=== PATIENT | female | born 1985 | race Caucasian/White ===

== ENCOUNTER 2017-06-09 22:31 | Emergency (ER) | payer SELFPAY ==
[2017-06-09 22:50] VITALS: BP 91/79
[2017-06-09] MEDS ORDERED: Sodium Chloride 0.9% 1,000 ML IV ONE (23:40)
[2017-06-09] MEDS ORDERED: HYDROmorphone 0.5 MG/0.5 ML Syringe IVPUSH ONE (23:40)
[2017-06-09] MEDS ORDERED: Promethazine 25 MG in Sodium Chloride 0.9% 50 ML IV ONE (23:41)
[2017-06-09] MEDS ORDERED: Ketorolac 30 MG/ML SDV IVPUSH SCH (23:45)
--- NOTE | 2017-06-09 23:46 | EDM.PDOC ---
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 She states came on very abruptly and radiated down towards the rectum and perineum. She has a history of endometriosis but she states since endometrioma was resected 3 months ago her periods of been much more tolerable and only minimally painful.. Ended 3 days ago and lasted 7 days. She felt was relatively uneventful. She is scheduled for a total abdominal hysterectomy and BSO the next month. She went to take a shower tonight but then developed vertigo symptoms and started having abrupt onset of nausea and vomiting with associated headache. She states she gets vertigo quite often and uses Phenergan tablet form about every other week for vertigo symptoms. She states her bowel function is normal. She did not appreciate any blood in her urine. She did have a feeling of need to go but was unable to pass her bowels or urine when the pain came on. This is suggestive of a possible right renal stone. She believes the nausea and vomiting is more related to the sudden onset of recurrence of vertigo. Hour the abdominal pain is quite intense and has a very strong colicky component. It can go from a 1 to a 9 in abruptly. Onset: Today Onset Date: 06/09/17 Onset Time: 09:00 Duration: Hour(s):, Getting Worse Location: Reports: Abdomen (Lower abdomen more to the right than to the left.) Quality: Reports: Ache, Pressure, Sharp, Stabbing, Other Severity: Severe (Pain is very sharp and stabbing and colicky in nature.) Improves with: Reports: None Worsens with: Reports: Movement Context: Denies: Activity (Currently any movement makes her vertigo worse and with associated onset of nausea and vomiting.), Exercise, Lifting, Sick Contact , Trauma, Other Associated Symptoms: Reports: Diaphoresis, Headaches, Loss of Appetite, Malaise ( nausea and vomiting she believes related to the vertigo versus the severe abdominal pain.), Nausea/Vomiting (Vertigo), Other. 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 She usually uses Phenergan tablets but doesn't have any at present.) Lower Abdomen Pain Score (Numeric/FACES): 7 - Related Data Allergies Allergy/AdvReac Type Severity Reaction Status Date / Time metoclopramide [From Reglan] Allergy Anxiety Verified 06/09/17 22:51 Penicillins Allergy Anaphylactic Verified 06/09/17 22:51 Shock Home Meds: Home Meds Promethazine [Phenergan] 25 mg PO Q6H PRN #20 tablet 06/10/17 [Rx] oxyCODONE HCl/Acetaminophen [Percocet 5-325 mg Tablet] 1 - 2 each PO Q4H PRN # 20 tablet 06/10/17 [Rx] oxyCODONE HCl/Acetaminophen [Percocet 5-325 mg Tablet] 1 - 2 each PO Q4H PRN #5 tablet 06/10/17 [Rx] Past Medical History Genitourinary History: Reports: Renal Calculus COMM[facility] HEALTH NURSE History: Reports: Hyperemesis, Other (See Below) Other OB/BYN History: endometrioma Neurological History: Reports: Vertigo (Chronic vertigo more or less Mnire's syndrome.) Oncologic (Cancer) History: Reports: Cervix - Past Surgical History Female Surgical History: Reports: Section Social & Family History - Family History Family Medical History: Noncontributory - Tobacco Use Smoking Status *Q: Current Every Day Smoker Years of Tobacco use: 7 Packs/Tins Daily: 0.5 - Recreational Drug Use Recreational Drug Use: Yes Recreational Drug Type: Reports: Marijuana/Hashish - Living Situation & Occupation Living situation: Reports: Occupation: Employed ED ROS GENERAL - Review of Systems Review Of Systems: See Below Constitutional: Reports: Chills, Malaise, Weakness, Fatigue, Decreased Appetite. Denies: Fever, Weight Loss HEENT: Reports: Vertigo (Severe vertigo started tonight with any movement of her head laterally.) Respiratory: Reports: No Symptoms Cardiovascular: Reports: No Symptoms Endocrine: Reports: No Symptoms GI/Abdominal: Reports: Abdominal Pain (See history of present illness), Nausea, Vomiting (Recurrently since vertigo symptoms started.) : Reports: Other (Feels the need to void but often can't.) Musculoskeletal: Reports: No Symptoms Skin: Reports: Diaphoresis (At times.) Neurological: Reports: Dizziness (Severe vertigo chronically.), Gait Disturbance (Needs help to walk tonight due to the vertigo.) Psychiatric: Reports: No Symptoms Hematologic/Lymphatic: Reports: No Symptoms Immunologic: Reports: No Symptoms ED EXAM, GI/ABD - Physical Exam Exam: See Below Exam Limited By: No Limitations General Appearance: Alert, Moderate Distress (Appears ill.) Eyes: Bilateral: Nystagmus (Moderate on left lateral upper gaze.) Ears: Normal TMs Throat/Mouth: Normal Inspection, Normal Lips, Normal Oropharynx Head: Atraumatic, Normocephalic Neck: Normal Inspection, Non-Tender, Full Range of Motion. No: Carotid Bruit, Lymphadenopathy (L) Respiratory/Chest: No Respiratory Distress, Lungs Clear, Normal Breath Sounds, No Accessory Muscle Use Cardiovascular: Normal Peripheral Pulses, Regular Rate, Rhythm, No Edema, No Gallop, No Murmur GI/Abdominal Exam: Normal Bowel Sounds, Soft, Tender (Tender to deep palpation right lower quadrant. No rebound tenderness or guarding. The abdominal wall is quite flaccid from). No: Guarding ( pregnancies.), Rigid, Rebound Back Exam: Normal Inspection, Full Range of Motion. No: CVA Tenderness (L), CVA Tenderness (R) Extremities: Normal Inspection, Normal Range of Motion, Non-Tender, No Pedal Edema Neurological: Alert, Oriented, CN II-XII Intact, Normal Cognition, Other ( Ataxic gait.) Psychiatric: Anxious, Tearful Skin Exam: Cool (And clammy) Course - Vital Signs Last Recorded V/S: Last Vital Signs Temp 36.3 C 06/09/17 22:46 Pulse 71 06/09/17 22:46 Resp 16 06/09/17 22:46 BP 91/79 06/09/17 22:46 Pulse Ox 100 06/09/17 22:46 - Orders/Labs/Meds Orders: Active Orders 24 hr Category Date Time Status Abdomen Pelvis wo Cont [CT] Stat Exams 06/09/17 23:42 Taken CULTURE URINE [RM] Stat Lab 06/10/17 01:01 Ordered Ketorolac [Toradol] Med 06/09/17 23:45 Active 30 mg IVPUSH ONETIME Sodium Chloride 0.9% [Normal Saline] 1,000 ml Med 06/09/17 23:40 Active IV ONETIME Medication Orders Sodium Chloride (Normal Saline) 1,000 mls @ 500 mls/hr IV ONETIME ONE Stop: 06/10/17 01:39 Last Admin: 06/09/17 23:51 Dose: 500 mls/hr Ketorolac Tromethamine (Toradol) 30 mg IVPUSH ONETIME YAMIL Last Admin: 06/09/17 23:52 Dose: 30 mg Labs: Laboratory Tests 06/09/17 06/09/17 06/09/17 Range/Units 23:15 23:25 23:25 WBC 11.06 H (3.98-10.04) K/mm3 RBC 4.34 (3.98-5.22) M/mm3 Hgb 10.9 L (11.2-15.7) gm/L Hct 35.3 (34.1-44.9) % MCV 81.3 (79.4-94.8) fl MCH 25.1 L (25.6-32.2) pg MCHC 30.9 L (32.2-35.5) g/dl RDW Std Deviation 44.9 (36.4-46.3) fL Plt Count 458 H (182-369) K/mm3 MPV 9.3 L (9.4-12.3) fl Neutrophils % (Manual) 54 (40-60) % Band Neutrophils % 0 (0-10) % Lymphocytes % (Manual) 36 (20-40) % Atypical Lymphs % 0 % Monocytes % (Manual) 5 (2-10) % Eosinophils % (Manual) 2 (0.7-5.8) % Basophils % (Manual) 3 H (0.1-1.2) Platelet Estimate Increased Plt Morphology Comment Normal Hypochromasia 1+ slight Poikilocytosis 1+ slight Anisocytosis 1+ slight Microcytosis 1+ slight Macrocytosis 1+ slight RBC Morph Comment Abnormal Sodium 139 (136-145) mEq/L Potassium 3.9 (3.5-5.1) mEq/L Chloride 104 (98-107) mEq/L Carbon Dioxide 27 (21-32) mEq/L Anion Gap 11.9 (5-15) BUN 18 (7-18) mg/dL Creatinine 1.1 H (0.55-1.02) mg/dL Est Cr Clr Drug Dosing 69.37 mL/min Estimated GFR (MDRD) 58 (>60) mL/min BUN/Creatinine Ratio 16.4 (14-18) Glucose 92 (74-106) mg/dL Calcium 9.1 (8.5-10.1) mg/dL Total Bilirubin 0.2 (0.2-1.0) mg/dL AST 20 (15-37) U/L ALT 17 (14-59) U/L Alkaline Phosphatase 56 (46-116) U/L Total Protein 7.7 (6.4-8.2) g/dl Albumin 3.8 (3.4-5.0) g/dl Globulin 3.9 gm/dL Albumin/Globulin Ratio 1.0 (1-2) HCG, Qual (NEGATIVE) Urine Color Yellow (Yellow) Urine Appearance Clear (Clear) Urine pH 8.0 (5.0-8.0) Ur Specific [place] 1.020 (1.005-1.030) Urine Protein 1+ H (Negative) Urine Glucose (UA) Negative (Negative) Urine Ketones Negative (Negative) Urine Occult Blood Negative (Negative) Urine Nitrite Negative (Negative) Urine Bilirubin Negative (Negative) Urine Urobilinogen 0.2 (0.2-1.0) Ur Leukocyte Esterase 1+ H (Negative) Urine RBC 0-5 (0-5) /hpf Urine WBC 5-10 H (0-5) /hpf Ur Epithelial Cells 0-5 (0-5) /hpf Urine Bacteria Few (FEW) /hpf Urine Mucus Not seen (FEW) /hpf 06/09/17 Range/Units 23:25 WBC (3.98-10.04) K/mm3 RBC (3.98-5.22) M/mm3 Hgb (11.2-15.7) gm/L Hct (34.1-44.9) % MCV (79.4-94.8) fl MCH (25.6-32.2) pg MCHC (32.2-35.5) g/dl RDW Std Deviation (36.4-46.3) fL Plt Count (182-369) K/mm3 MPV (9.4-12.3) fl Neutrophils % (Manual) (40-60) % Band Neutrophils % (0-10) % Lymphocytes % (Manual) (20-40) % Atypical Lymphs % % Monocytes % (Manual) (2-10) % Eosinophils % (Manual) (0.7-5.8) % Basophils % (Manual) (0.1-1.2) Platelet Estimate Plt Morphology Comment Hypochromasia Poikilocytosis Anisocytosis Microcytosis Macrocytosis RBC Morph Comment Sodium (136-145) mEq/L Potassium (3.5-5.1) mEq/L Chloride (98-107) mEq/L Carbon Dioxide (21-32) mEq/L Anion Gap (5-15) BUN (7-18) mg/dL Creatinine (0.55-1.02) mg/dL Est Cr Clr Drug Dosing mL/min Estimated GFR (MDRD) (>60) mL/min BUN/Creatinine Ratio (14-18) Glucose (74-106) mg/dL Calcium (8.5-10.1) mg/dL Total Bilirubin (0.2-1.0) mg/dL AST (15-37) U/L ALT (14-59) U/L Alkaline Phosphatase (46-116) U/L Total Protein (6.4-8.2) g/dl Albumin (3.4-5.0) g/dl Globulin gm/dL Albumin/Globulin Ratio (1-2) HCG, Qual Negative (NEGATIVE) Urine Color (Yellow) Urine Appearance (Clear) Urine pH (5.0-8.0) Ur Specific [place] (1.005-1.030) Urine Protein (Negative) Urine Glucose (UA) (Negative) Urine Ketones (Negative) Urine Occult Blood (Negative) Urine Nitrite (Negative) Urine Bilirubin (Negative) Urine Urobilinogen (0.2-1.0) Ur Leukocyte Esterase (Negative) Urine RBC (0-5) /hpf Urine WBC (0-5) /hpf Ur Epithelial Cells (0-5) /hpf Urine Bacteria (FEW) /hpf Urine Mucus (FEW) /hpf Meds: Medications Generic Name Dose Route Start Last Admin Trade Name Freq PRN Reason Stop Dose Admin Sodium Chloride 1,000 mls @ 500 mls/hr 06/09/17 23:40 06/09/17 23:51 Normal Saline IV 06/10/17 01:39 500 mls/hr ONETIME ONE Administration Ketorolac Tromethamine 30 mg 06/09/17 23:45 06/09/17 23:52 Toradol IVPUSH 30 mg ONETIME YAMIL Administration Discontinued Medications Generic Name Dose Route Start Last Admin Trade Name Trey PRN Reason Stop Dose Admin Hydromorphone HCl 0.5 mg 06/09/17 23:40 06/09/17 23:52 Dilaudid IVPUSH 06/09/17 23:41 0.5 mg ONETIME ONE Administration Hydromorphone HCl 1 mg 06/10/17 00:24 06/10/17 00:35 Dilaudid IVPUSH 06/10/17 00:25 1 mg ONETIME ONE Administration Promethazine HCl 25 mg/ Sodium 51 mls @ 100 mls/hr 06/09/17 23:41 06/09/17 23 :51 Chloride IV 06/10/17 00:11 100 mls/hr ONETIME ONE Administration - Radiology Interpretation Free Text/Narrative:: 32-year-old female presents the ED with acute onset of right-sided ayad- abdominal pain that radiates down into the rectum and perineum. This started this morning but worsened this evening. Pain is strongly colicky. She has a remote history of renal lithiasis on the left side requiring lithotripsy and stenting. 10 years ago. She has a history of endometriosis with recent surgery for removal of an endometrioma from her ovary on the right side about 3 months ago. Periods 3 have been much more tolerable since that surgery. She is scheduled now for a total abdominal hysterectomy and BSO to alleviate the problems with endometriosis. Became came on very suddenly this morning and was severe i.e. 9 or 10. Scribed it is a crampy pain but not menstrual-like. Last menstrual period ended 3 days ago. This evening she developed acute onset of vertigo while getting into the shower with that precipitated at nausea and vomiting. This has not been able to settle down. She usually uses Phenergan tablets by mouth but doesn't have any. Therefore she has 2 problems i.e. recurrence of vertigo with nausea and vomiting and acute right-sided abdominal pain which may represent renal colic versus a ruptured ovarian cyst. Plan IV normal saline at 500 mils per hour. Given Dilaudid 0.5 mg IV with Toradol 30 mg IV and will give her Phenergan 25 mg IV over 15 minutes. Urinalysis to be done as well as CT of the abdomen without any contrast. - Re-Assessments/Exams Free Text/Narrative Re-Assessment/Exam: 06/10/17 00:25 CT the abdomen is essentially within normal limits. No renal stones or obstruction of the ureters were identified. Surgical clips noted on both fallopian tubes. Liver appears homogenous. Gallbladder normal. There is a fair amount of stool within the right hemicolon. Right ovary is easily visible and appears to have a cyst approximate 2.1 cm in diameter. .No free fluid evident in the pelvis. Patient is having more pain at present and therefore will receive Dilaudid 1 mg IV.. 06/10/17 00:47 Labs are now back revealing a normal white count of 11.06 with 54% neutrophils no bands hemoglobin is on the low side at 10.9 hematocrit is 35.3. MCV is 81 suggesting she is getting a little bit low on iron. Platelets are 458,009 elevated. Sodium 139 potassium 3.9 chloride 104 bicarbonate 27. Anion gap is 11.9 creatinine is 1.1. Liver function normal. Urine contained 1+ leukocyte esterase on the dip and 5-10 WBCs per high-power field but no red cells. Therefore pain most likely is from a endometrioma or a ruptured ovarian cyst with minimal fluid evident in the pelvis. It may be hemorrhage within the cyst itself causing the acute pain. There is a fair amount of stool throughout the right hemicolon as well. 06/10/17 00:54 feeling improved. Less vertigo and less nausea or vomiting. Pain also now down to a 1 out of 10. Will therefore discharged to home. We'll provide with 5 [facility] tablets [facility] as she has no credit card for [employer] use. Will give her 5 tablets of Percocet 5/3/25 milligrams from the [place] to get her through the night. No drug stores will be open until noon tomorrow. Script written for Phenergan 25mg tabs to be used Q 6hrs prn for vertigo. Percocet tabs 5/325mg 1-2 Q4Hrs prn for pain relief. Follow-up with OB /OPTICAL MANUFACTURING TECHNICIAN or personal physician if not markedly improved in 3 days Departure - Departure Time of Disposition: 00:56 Disposition: Home, Self-Care 01 Condition: Fair Clinical Impression: Episodic recurrent vertigo, Right lower quadrant abdominal pain, Right ovarian cyst Nausea with vomiting Qualifiers: Vomiting type: bilious vomiting Qualified Code(s): R11.14 - Bilious vomiting - Discharge Information Prescriptions: Promethazine [Phenergan] 25 mg PO Q6H PRN #20 tablet PRN Reason: Relief of vertigo oxyCODONE HCl/Acetaminophen [Percocet 5-325 mg Tablet] 1 - 2 each PO Q4H PRN # 20 tablet PRN Reason: pain relief. oxyCODONE HCl/Acetaminophen [Percocet 5-325 mg Tablet] 1 - 2 each PO Q4H PRN #5 tablet PRN Reason: pain relief. Instructions: Ovarian Cyst Referrals: PCP,None [Primary Care Provider] - Forms: ED Department Discharge Additional Instructions: Evaluation in the emergency room tonight for 2 reasons. Development of right lower quadrant pelvic pain yesterday radiating down towards the perineum and rectum which appears to be due to a hemorrhagic cyst of the right ovary. Likely related to endometriosis. CT scan did not reveal any evidence of kidney stones in either kidney liver spleen adrenal glands and pancreas and kidneys appear otherwise normal. Surgical clips appreciated on both fallopian tubes. Second problem was recurrence of vertigo with associated nausea and vomiting this evening. You're treated with intravenous fluids while in the department hand medications Phenergan 25 mg IV was given intravenously with Dilaudid total of 1.5 mg and Toradol 30 mg IV for pain relief. Suggest home to bed to sleep at this time. A prescription was written for Phenergan 25 mg tablets to be taken as needed for relief of vertigo symptoms and nausea and vomiting. Percocet tabs 02/21/25 one or 2 every 4-6 hours for relief of right lower quadrant abdominal pain. Hemorrhagic cyst pain usually settles down gradually over a period of 3-[address] did show that there was increased stool throughout the right hemicolon and you may want to take MiraLAX powder 17 g or 1 scoop daily to prevent constipation as pain medication slows the bowel down even further. Follow-up with your COMMUNITY HEALTH NURSE or personal physician if any further problems occur. - My Orders Last 24 Hours: My Active Orders 06/09/17 23:40 Sodium Chloride 0.9% [Normal Saline] 1,000 ml IV ONETIME 06/09/17 23:42 Abdomen Pelvis wo Cont [CT] Stat 06/09/17 23:45 Ketorolac [Toradol] 30 mg IVPUSH ONETIME 06/10/17 01:01 CULTURE URINE [RM] Stat - Assessment/Plan Last 24 Hours: My Active Orders 06/09/17 23:40 Sodium Chloride 0.9% [Normal Saline] 1,000 ml IV ONETIME 06/09/17 23:42 Abdomen Pelvis wo Cont [CT] Stat 06/09/17 23:45 Ketorolac [Toradol] 30 mg IVPUSH ONETIME 06/10/17 01:01 CULTURE URINE [RM] Stat
[2017-06-09] MEDS ORDERED: Acetaminophen/oxyCODONE 325-5 MG Tab ONE (23:55)
[2017-06-10] MEDS ORDERED: HYDROmorphone 1 MG/ML Syringe IVPUSH ONE (00:24)
--- NOTE | 2017-06-14 10:47 | CT ---
CT abdomen and pelvis Technique: Multiple axial sections were obtained from above the kidneys inferiorly through the pubic symphysis. Intravenous contrast was not utilized. Study has been performed as a ureteral stone protocol. Findings: Kidneys showed no abnormal calcifications. No ureteral dilatation is seen. No abnormal calcifications are seen along the course of the ureters. No bladder calculi are seen. Visualized lung bases show nothing acute. Noncontrast appearance of the visualized liver and spleen appears within normal limits. Adrenal glands show no nodule. Pancreas shows no discrete abnormality. Gallbladder shows no calcified gallstones. Aorta shows no aneurysmal dilatation. Appendix is seen which appears normal. No pelvic mass or adenopathy is seen. Cystic structure is noted within the right ovary believed to represent dominant follicle. Bone window settings were reviewed which show disc protrusion posteriorly at L4-L5. 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 Impression: 1. No renal calculi or ureteral stone is seen. 2. Incidental spine findings as described above. Nothing acute is seen on noncontrast CT study of the abdomen and pelvis performed as a ureteral stone protocol. Diagnostic code #2 Agree with preliminary report issued by [facility] ([facility] preliminary report dictated on 06/10/17, 1:34 AM Central Time)
== END 2017-06-10 01:10 | disposition home or self-care (01) ==
LOC: JD.ED 22:31
DX: N83.201 Unspecified ovarian cyst, right side (principal); R42 Dizziness and giddiness; R11.14 Bilious vomiting; F17.210 Nicotine dependence, cigarettes, uncomplicated; Z88.0 Allergy status to penicillin; Z88.8 Allergy status to other drugs, medicaments and biological substances
CPT/HCPCS: 36415; 74176; 80053; 81001; 84703; 85025; 87086; 96365; 96375; 96376; 99284; A9270; J1170; J1885; J2550; J7040; J7050

== ENCOUNTER 2018-01-12 18:53 | Emergency (ER) | payer SELFPAY ==
[2018-01-12 19:14] VITALS: BP 104/86
[2018-01-12] MEDS ORDERED: Sodium Chloride 0.9% 10 ML Syringe FLUSH PRN (19:58)
[2018-01-12] MEDS ORDERED: Sodium Chloride 0.9% 1,000 ML IV ONE (19:58)
[2018-01-12] MEDS ORDERED: Ketorolac 30 MG/ML SDV IVPUSH ONE (20:01)
[2018-01-12] MEDS ORDERED: Ondansetron 4 MG/2 ML SDV IVPUSH ONE (20:01)
[2018-01-12] MEDS ORDERED: Promethazine 25 MG/ML SDV IM ONE (20:55)
[2018-01-12] MEDS ORDERED: HYDROmorphone 0.5 MG/0.5 ML SYRINGE IVPUSH ONE (20:55)
--- NOTE | 2018-01-12 22:43 | EDM.PDOC ---
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 Patient had vaginal bleeding for the last 37 days. She states that she has been changing a tampon every 2 hours. She percent tonight as she is having severe cramping. She reports nausea and vomiting. Reports she's had 6 episodes of emesis today. No dysuria, hematuria or syncope. She states that she does feel lightheaded and dizzy. [place] She has a past medical history of endometriosis and cervical cancer. She is currently on progesterone for her vaginal bleeding. She reports that the plan is to get a colposcopy as soon as vaginal bleeding stops, however, they've been unable to do this yet. She is on progesterone but did not take any today due to her nausea and vomiting. Reports she's had [address] 2 [address] scans in the last month. She states that she has a cyst on both of her ovaries. Patient reports since coming to [place] she has not yet established with OB /[facility]. In addition to the progesterone, Patient is also on iron. She is not taking iron today due to the nausea and vomiting.She was recently phenergran, however, she is out at this time. Patient reports that she is sexually active. States she most recently had intercourse with her estranged . Since having intercourse with him she has appreciated abnormal vaginal discharge and foul odor. Lower Abdomen Pain Score (Numeric/FACES): 8 - Related Data Allergies Allergy/AdvReac Type Severity Reaction Status Date / Time Penicillins Allergy Anaphylactic Verified 01/12/18 19:13 Shock metoclopramide [From Reglan] AdvReac Anxiety Verified 01/12/18 19:13 Home Meds: Home Meds Promethazine [Phenergan] 25 mg PO Q6H PRN #20 tablet 06/10/17 [Rx] oxyCODONE HCl/Acetaminophen [Percocet 5-325 mg Tablet] 1 - 2 each PO Q4H PRN #5 tablet 06/10/17 [Rx] Progesterone,Micronized [Progesterone] 100 mg PO TID 01/12/18 [History] Promethazine [Phenergan] 25 mg PO Q6H PRN #20 tab 01/12/18 [Rx] metroNIDAZOLE [Flagyl] 500 mg PO Q12H #14 tab 01/12/18 [Rx] Past Medical History Genitourinary History: Reports: Renal Calculus 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, 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, , Other (See Below ) Other OB/BYN History: endometrioma Neurological History: Reports: Vertigo Oncologic (Cancer) History: Reports: Cervix - Past Surgical History Female Surgical History: Reports: Section Social & Family History - Family History Family Medical History: Noncontributory - Tobacco Use Smoking Status *Q: Current Every Day Smoker Years of Tobacco use: 4 Packs/Tins Daily: 0.2 Used Tobacco, but Quit: No Second Hand Smoke Exposure: No - Caffeine Use Caffeine Use: Reports: Coffee - Recreational Drug Use Recreational Drug Use: No Recreational Drug Type: Reports: Marijuana/Hashish - Living Situation & Occupation Living situation: Reports: Occupation: Employed ED ROS GENERAL - Review of Systems Review Of Systems: See Below Cardiovascular: Reports: Lightheadedness. Denies: Syncope GI/Abdominal: Reports: Abdominal Pain (Lower abdominal cramping), Nausea, Vomiting : Reports: Pain, Other (Vaginal bleeding, having to change her tampon every 2 hours.). Denies: Dysuria Neurological: Reports: Dizziness ED EXAM, RENAL/ - Physical Exam Exam: See Below Exam Limited By: No Limitations General Appearance: Alert, WD/WN, No Apparent Distress Ears: Normal External Exam Nose: Normal Inspection Throat/Mouth: Normal Inspection, Normal Voice, No Airway Compromise Respiratory/Chest: No Respiratory Distress, Lungs Clear, Normal Breath Sounds Cardiovascular: Normal Peripheral Pulses, Regular Rate, Rhythm, No Murmur GI/Abdominal: Normal Bowel Sounds, Soft, No Distention, Guarding, Tender ( Entire abdomen, seems to exaggerate symptoms). No: Rebound (Female) Exam: Normal External Exam, Cervical Lesions, Vaginal Bleeding, Other (Multiparity cervix) Neurological: Alert, Oriented, Normal Cognition Psychiatric: Normal Affect, Normal Mood Skin Exam: Warm, Dry, Normal Color Course - Vital Signs Last Recorded V/S: Last Vital Signs Temp 37.1 C 01/12/18 19:10 Pulse 102 H 01/12/18 19:10 Resp 20 01/12/18 19:10 BP 104/86 01/12/18 19:10 Pulse Ox 100 01/12/18 19:10 Orthostatic Blood Pressure [ 97/64 Standing] Orthostatic Blood Pressure [ 106/54 Sitting] Orthostatic Blood Pressure [ 102/61 Supine] - Orders/Labs/Meds Labs: Laboratory Tests 01/12/18 01/12/18 01/12/18 Range/Units 20:18 20:18 20:18 WBC 7.89 (3.98-10.04) K/mm3 RBC 3.97 L (3.98-5.22) M/mm3 Hgb 9.4 L (11.2-15.7) gm/L Hct 30.6 L (34.1-44.9) % MCV 77.1 L (79.4-94.8) fl MCH 23.7 L (25.6-32.2) pg MCHC 30.7 L (32.2-35.5) g/dl RDW Std Deviation 47.4 H (36.4-46.3) fL Plt Count 374 H (182-369) K/mm3 MPV 9.1 L (9.4-12.3) fl Neut % (Auto) 53.8 (34.0-71.1) % Lymph % (Auto) 33.3 (19.3-51.7) % [place] % (Auto) 9.1 (4.7-12.5) % Eos % (Auto) 3.2 (0.7-5.8) Baso % (Auto) 0.5 (0.1-1.2) % Neut # (Auto) 4.24 (1.56-6.13) K/mm3 Lymph # (Auto) 2.63 (1.18-3.74) K/mm3 [place] # (Auto) 0.72 H (0.24-0.36) K/mm3 Eos # (Auto) 0.25 (0.04-0.36) K/mm3 Baso # (Auto) 0.04 (0.01-0.08) K/mm3 Sodium 139 (136-145) mEq/L Potassium 3.9 (3.5-5.1) mEq/L Chloride 106 (98-107) mEq/L Carbon Dioxide 24 (21-32) mEq/L Anion Gap 12.9 (5-15) BUN 17 (7-18) mg/dL Creatinine 0.9 (0.55-1.02) mg/dL Est Cr Clr Drug Dosing 84.79 mL/min Estimated GFR (MDRD) > 60 (>60) mL/min BUN/Creatinine Ratio 18.9 H (14-18) Glucose 85 (74-106) mg/dL Calcium 8.7 (8.5-10.1) mg/dL Total Bilirubin 0.2 (0.2-1.0) mg/dL AST 12 L (15-37) U/L ALT 11 L (14-59) U/L Alkaline Phosphatase 47 (46-116) U/L Total Protein 7.1 (6.4-8.2) g/dl Albumin 3.3 L (3.4-5.0) g/dl Globulin 3.8 gm/dL Albumin/Globulin Ratio 0.9 L (1-2) HCG, Qual Negative (NEGATIVE) Urine Color (Yellow) Urine Appearance (Clear) Urine pH (5.0-8.0) Ur Specific [place] (1.005-1.030) Urine Protein (Negative) Urine Glucose (UA) (Negative) Urine Ketones (Negative) Urine Occult Blood (Negative) Urine Nitrite (Negative) Urine Bilirubin (Negative) Urine Urobilinogen (0.2-1.0) Ur Leukocyte Esterase (Negative) Urine RBC (0-5) /hpf Urine WBC (0-5) /hpf Ur Epithelial Cells (0-5) /hpf Urine Bacteria (FEW) /hpf Urine Mucus (FEW) /hpf C trachomatis DNA (PCR) N gonorrhoeae DNA (PCR) 01/12/18 01/12/18 Range/Units 20:40 20:59 WBC (3.98-10.04) K/mm3 RBC (3.98-5.22) M/mm3 Hgb (11.2-15.7) gm/L Hct (34.1-44.9) % MCV (79.4-94.8) fl MCH (25.6-32.2) pg MCHC (32.2-35.5) g/dl RDW Std Deviation (36.4-46.3) fL Plt Count (182-369) K/mm3 MPV (9.4-12.3) fl Neut % (Auto) (34.0-71.1) % Lymph % (Auto) (19.3-51.7) % [place] % (Auto) (4.7-12.5) % Eos % (Auto) (0.7-5.8) Baso % (Auto) (0.1-1.2) % Neut # (Auto) (1.56-6.13) K/mm3 Lymph # (Auto) (1.18-3.74) K/mm3 [place] # (Auto) (0.24-0.36) K/mm3 Eos # (Auto) (0.04-0.36) K/mm3 Baso # (Auto) (0.01-0.08) K/mm3 Sodium (136-145) mEq/L Potassium (3.5-5.1) mEq/L Chloride (98-107) mEq/L Carbon Dioxide (21-32) mEq/L Anion Gap (5-15) BUN (7-18) mg/dL Creatinine (0.55-1.02) mg/dL Est Cr Clr Drug Dosing mL/min Estimated GFR (MDRD) (>60) mL/min BUN/Creatinine Ratio (14-18) Glucose (74-106) mg/dL Calcium (8.5-10.1) mg/dL Total Bilirubin (0.2-1.0) mg/dL AST (15-37) U/L ALT (14-59) U/L Alkaline Phosphatase (46-116) U/L Total Protein (6.4-8.2) g/dl Albumin (3.4-5.0) g/dl Globulin gm/dL Albumin/Globulin Ratio (1-2) HCG, Qual (NEGATIVE) Urine Color Yellow (Yellow) Urine Appearance Slt cloudy H (Clear) Urine pH 6.5 (5.0-8.0) Ur Specific [place] > or = 1.030 (1.005-1.030) Urine Protein 2+ H (Negative) Urine Glucose (UA) Negative (Negative) Urine Ketones Negative (Negative) Urine Occult Blood 3+ H (Negative) Urine Nitrite Negative (Negative) Urine Bilirubin Negative (Negative) Urine Urobilinogen 0.2 (0.2-1.0) Ur Leukocyte Esterase Negative (Negative) Urine RBC 5-10 H (0-5) /hpf Urine WBC 5-10 H (0-5) /hpf Ur Epithelial Cells 5-10 H (0-5) /hpf Urine Bacteria Rare (FEW) /hpf Urine Mucus Few (FEW) /hpf C trachomatis DNA (PCR) Not detected N gonorrhoeae DNA (PCR) Not detected Meds: Medications Discontinued Medications Generic Name Dose Route Start Last Admin Trade Name Freq PRN Reason Stop Dose Admin Hydromorphone HCl 0.5 mg 01/12/18 20:55 01/12/18 21:15 Dilaudid IVPUSH 01/12/18 20:56 0.5 mg ONETIME ONE Administration Sodium Chloride 1,000 mls @ 999 mls/hr 01/12/18 19:58 01/12/18 20:23 Normal Saline IV 01/12/18 20:58 999 mls/hr ONETIME ONE Administration Ketorolac Tromethamine 30 mg 01/12/18 20:01 01/12/18 20:26 Toradol IVPUSH 01/12/18 20:02 30 mg ONETIME ONE Administration Ondansetron HCl 4 mg 01/12/18 20:01 01/12/18 20:24 Zofran IVPUSH 01/12/18 20:02 4 mg ONETIME ONE Administration Promethazine HCl 25 mg 01/12/18 20:55 01/12/18 21:10 Phenergan IM 01/12/18 20:56 25 mg ONETIME ONE Administration Sodium Chloride 10 ml 01/12/18 19:58 01/12/18 20:27 Saline Flush FLUSH 10 ml ASDIRECTED PRN Administration Keep Vein Open - Re-Assessments/Exams Free Text/Narrative Re-Assessment/Exam: 01/12/18 22:35 I reviewed the lab results with the patient. Patient reports she does have some vaginal discharge. States that she appreciated this after having intercourse with her strange . Therefore we decided to do gonorrhea chlamydia and wet prep. Wet prep returned positive for trichomonas. No yeast or bacterial vaginosis. I'll treat her with some Flagyl. Hemoglobin is low at 9.4, not to the point of transfusion yet. The patient feels improved after the pain medication. She has not had any emesis since coming in the ER. She states that she felt nauseous mostly due to the pain. I instructed her to follow-up with OB and establish care here as soon as she is able to. She should take her progesterone and her iron today. Discharge instructions as documented. Departure - Departure Time of Disposition: 22:37 Disposition: Home, Self-Care 01 Condition: Fair Clinical Impression: Menorrhagia, Trichomonal vaginitis - Discharge Information Prescriptions: metroNIDAZOLE [Flagyl] 500 mg PO Q12H #14 tab Promethazine [Phenergan] 25 mg PO Q6H PRN #20 tab PRN Reason: Nausea Instructions: Trichomoniasis, Menorrhagia Referrals: PCP,None [Primary Care Provider] - Jassi Pleitez MD [Physician] - Forms: ED Department Discharge Additional Instructions: Take the Phenergan 1 tab every 6 hours as needed for nausea. Follow-up with OB Sunday or Sunday. Recommend Dr. Pleitez at the [facility]. Call [phone] to schedule with him. Continue on your medications that you have at home, continue on your iron tabs and your progesterone. Make sure drinking plenty of fluids. Take the Flagyl 1 tab twice a day for 7 days. No intercourse 1 week. Recommend that you contact your partner slept them know that she tested positive for Trichomonas. Do not drink alcohol while you are taking Flagyl. Please return to the ER for symptoms change or worsen.
[2018-01-13 03:40] LABS: C. TRACHOMATIS BY PCR NOT DETECTED; N. GONORRHOEAE BY PCR NOT DETECTED
== END 2018-01-12 22:50 | disposition home or self-care (01) ==
LOC: JD.ED 18:53
DX: A59.01 Trichomonal vulvovaginitis (principal); N92.0 Excessive and frequent menstruation with regular cycle; F17.210 Nicotine dependence, cigarettes, uncomplicated; Z79.899 Other long term (current) drug therapy; Z88.0 Allergy status to penicillin; Z88.8 Allergy status to other drugs, medicaments and biological substances; Z85.41 Personal history of malignant neoplasm of cervix uteri; Z85.42 Personal history of malignant neoplasm of other parts of uterus
CPT/HCPCS: 36415; 80053; 81001; 84703; 85025; 87210; 87491; 87591; 87808; 96361; 96372; 96374; 96375; 99284; J1170; J1885; J2405; J2550; J7040; J7050

== ENCOUNTER 2018-01-18 13:01 | Emergency (ER) | payer SELFPAY ==
[2018-01-18 13:10] VITALS: BP 126/85
[2018-01-18] MEDS ORDERED: predniSONE 20 MG Tab PO STA (13:31)
[2018-01-18] MEDS ORDERED: Loratadine 10 MG Tab PO ONE (13:31)
--- NOTE | 2018-01-18 13:38 | EDM.PDOC ---
ED HPI GENERAL MEDICAL PROBLEM - General Chief Complaint: Allergic Reaction Stated Complaint: ALLERGIC REACTION TO MEDS Time Seen by Provider: 01/18/18 13:10 Source of Information: Reports: Patient, Old Records History Limitations: Reports: No Limitations - History of Present Illness INITIAL COMMENTS - FREE TEXT/NARRATIVE: Medical records indicate that the patient was seen by Whitley Shah in this ED on 01/12/2018 with a complaint of 37 days of vaginal bleeding and a vaginal discharge. Workup included a CBC, CMP, serum hCG, urinalysis, urine GC/ Chlamydia by PCR, and wet prep. The wet prep Trichomonas rapid antigen returned positive. She was found to be modestly anemic. She was discharged home with prescriptions for promethazine and Flagyl. The patient then returned to the ED 4 days later, seen by Dr. Kan on 2017, with a complaint of continued vaginal bleeding, fever, nausea, emesis, lower abdominal cramping, and oliguria. She was afebrile in the ED. Workup included a CBC, CMP, CRP, urinalysis, blood cultures, urine culture, orthostatics and a KUB. She was again found to have modest anemia, along with a HAGMA, otherwise, her workup was unremarkable. No elevated WBC count. She was not orthostatic. She was given 2 L of IV fluid and a total of 2 mg of IV Dilaudid. She was discharged home with a prescription for Percocet and promethazine, and an appointment was made for her to follow-up with Dr. Pleitez the following day, 01/17/2018 at 09:00. The patient now presents with generalized pruritus and facial swelling since yesterday, and the sensation of throat swelling today. No dyspnea or wheezing. No rash. She states that filled both the Percocet and Flagyl on 01/16/2018 (Dr. Kan was not likely aware that she had not started the Flagyl when he saw her on 01/16/2018). She did not keep her appointment with Dr. Pleitez on 01/17/2018, but now has an appointment to see him on 01/22/2018. She has not taken any medications to treat this, such as an antihistamine. No prior similar symptoms. Final results of the wet prep obtained 01/12/2018 finds no yeast, no Trichomonas , no clue cells, rare WBCs, few RBCs, and few prep epis. The patient does not have a PCP. Left Flank Pain Score (Numeric/FACES): 8 - Related Data Allergies Allergy/AdvReac Type Severity Reaction Status Date / Time Penicillins Allergy Anaphylactic Verified 01/16/18 08:19 Shock metoclopramide [From Reglan] AdvReac Anxiety Verified 01/16/18 08:19 Home Meds: Home Meds Progesterone,Micronized [Progesterone] 100 mg PO TID 01/12/18 [History] Promethazine [Phenergan] 25 mg PO Q6H PRN #20 tab 01/12/18 [Rx] metroNIDAZOLE [Flagyl] 500 mg PO Q12H #14 tab 01/12/18 [Rx] Promethazine [Phenergan] 25 mg PO Q6H PRN #20 tab 01/16/18 [Rx] oxyCODONE HCl/Acetaminophen [Percocet 5-325 mg Tablet] 1 - 2 each PO Q4H PRN # 20 tablet 01/16/18 [Rx] Iron 0 mg PO DAILY 01/18/18 [History] Past Medical History Genitourinary History: Reports: Renal Calculus 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 Exploratory laparoscopy for endometriosis x 3) Social & Family History - Family History Family Medical History: Noncontributory - Tobacco Use Smoking Status *Q: Current Every Day Smoker Years of Tobacco use: 8 Packs/Tins Daily: 0.4 Packs/Tins Daily Comment: Down from 10/23 ppd - Caffeine Use Caffeine Use: Reports: None Other Caffeine Use: a cup of coffee or soda "once in a great while." - Alcohol Use Alcohol Use History: Yes Alcohol Use Frequency: Rarely - Recreational Drug Use Recreational Drug Use: Yes Drug Use in Last 12 Months: Yes Recreational Drug Type: Reports: Marijuana/Hashish (last use Nov 2017) - Living Situation & Occupation Living situation: Reports: , with Spouse, with Family (3 kids) Occupation: Unemployed ED ROS ALLERGIC REACTION - Review of Systems Review Of Systems: ROS reveals no pertinent complaints other than HPI. ED EXAM GENERAL NO PERIP PULSE - Physical Exam Exam: See Below Exam Limited By: No Limitations General Appearance: Alert, WD/WN, No Apparent Distress Eye Exam: Bilateral Eye: Normal Inspection Ears: Normal External Exam, Hearing Grossly Normal Nose: Normal Inspection, No Blood Throat/Mouth: Normal Inspection, Normal Lips, Normal Teeth, Normal Gums, Normal Voice, No Airway Compromise, Other (Mild erythema to the posterior oropharynx with MILD uvular swelling) Head: Atraumatic, Normocephalic Neck: Normal Inspection, Full Range of Motion. No: Lymphadenopathy (L), Lymphadenopathy (R) Respiratory/Chest: No Respiratory Distress, Lungs Clear, Normal Breath Sounds, No Accessory Muscle Use. No: Wheezing Cardiovascular: Normal Peripheral Pulses, Regular Rate, Rhythm, No Gallop, No JVD, No Murmur, No Rub GI/Abdominal: Normal Bowel Sounds, Soft, Non-Tender, No Organomegaly, No Distention, No Abnormal Bruit, No Mass, Other (Obese) (Female) Exam: Deferred Rectal (Female) Exam: Deferred Back Exam: Normal Inspection, Full Range of Motion, NT Extremities: Normal Inspection, Normal Range of Motion, No Pedal Edema, Normal Capillary Refill Neurological: Alert, Oriented, Normal Cognition, No Motor/Sensory Deficits Psychiatric: Normal Affect Skin Exam: Warm, Dry, Intact, Normal Color, No Rash (no urticaria) Course - Vital Signs Last Recorded V/S: Last Vital Signs Temp 36.9 C 01/18/18 13:07 Pulse 91 01/18/18 13:07 Resp 20 01/18/18 13:07 BP 126/85 01/18/18 13:07 Pulse Ox 100 01/18/18 13:07 - Orders/Labs/Meds Meds: Medications Discontinued Medications Generic Name Dose Route Start Last Admin Trade Name Freq PRN Reason Stop Dose Admin Loratadine 10 mg 01/18/18 13:31 01/18/18 13:41 Claritin PO 01/18/18 13:32 10 mg ONETIME ONE Administration Prednisone 40 mg 01/18/18 13:31 01/18/18 13:40 Prednisone PO 01/18/18 13:32 40 mg ONETIME STA Administration - Re-Assessments/Exams Free Text/Narrative Re-Assessment/Exam: 01/18/18 13:32 Between the Percocet and metronidazole that the patient is currently taking, the Percocet is more likely to be the cause of the patient's symptoms, since she has pruritus without urticaria, however, the wet prep obtained 01/12/2018, while it was positive for trichomonas rapid antigen, is negative for trichomonas on visualization. The patient therefore does not need to be on Flagyl. I am going to recommend that she discontinue both Flagyl and Percocet. I will treat her with 10 mg oral Claritin and 40 mg oral prednisone here in the ED. Departure - Departure Time of Disposition: 13:38 Disposition: Home, Self-Care 01 Condition: Fair Clinical Impression: Pruritus, Angioedema - Discharge Information Instructions: Angioedema, [id number] Referrals: Jassi Pleitez MD [Primary Care Provider] - Forms: ED Department Discharge Additional Instructions: You were seen in the emergency room for facial and throat swelling, and generalized itchiness without a rash. Both Percocet and Flagyl (metronidazole) could potentially cause these symptoms , but of the two, Percocet is the more likely. Nevertheless, you do not have trichomonas, therefore you do not need to be on Flagyl. We therefore recommend that you discontinue BOTH the Percocet and the Flagyl. You were given the antihistamine Claritin and the steroid prednisone in the ER. These should help with your symptoms by tonight. We recommend that you take [id number] Tylenol as needed for discomfort. Follow-up with your Express Manager, Dr. Pleitez, at your previously scheduled appointment this coming 01/22/2018. If any other problems, please do not hesitate to return to the ER.
== END 2018-01-18 13:57 | disposition home or self-care (01) ==
LOC: SUPCPDRO 13:01 → JD.ED 13:01
DX: T78.3XXA Angioneurotic edema, initial encounter (principal); L29.9 Pruritus, unspecified; Z79.899 Other long term (current) drug therapy; Z87.442 Personal history of urinary calculi; F41.9 Anxiety disorder, unspecified; Z88.0 Allergy status to penicillin; F32.9 Major depressive disorder, single episode, unspecified; F17.210 Nicotine dependence, cigarettes, uncomplicated
CPT/HCPCS: 99283; A9270

== ENCOUNTER 2018-01-30 09:33 | Emergency (ER) | payer MEDICAID ==
[2018-01-30 09:43] VITALS: BP 132/82
--- NOTE | 2018-01-30 10:41 | EDM.PDOC ---
<Alexandra Frederick - Last Filed: 01/30/18 10:35> ED HPI GENERAL MEDICAL PROBLEM - General Chief Complaint: Gastrointestinal Problem Stated Complaint: ABDOMINAL PAIN AND VOMITING Time Seen by Provider: 01/30/18 10:20 Source of Information: Reports: Patient History Limitations: Reports: No Limitations - History of Present Illness INITIAL COMMENTS - FREE TEXT/NARRATIVE: Patient is a 32 YO female who presents today for abdominal pain and vomiting. She states the pain started yesterday afternoon. She states its located in the middle of her abdomen and radiates around the right side and into her back. Described as burning and sharp. She reports vomiting started around 9 pm last night and vomited 6 times since. She denies any blood. She reports chills but no fever. She has GERD at baseline and states it is a little worse today. She underwent transvaginal US this morning and states they had to push pretty hard into the LLQ because they had a hard time finding the left ovary. This only made the pain more severe so she decided to come here. She has been on percocet for 3 months and her last one was yesterday at 0800 she does not have any more. She has been taking 2 tabs q4hrs. She is feeling anxious this morning due to her pain and recent cervical biopsy which she does not know the results of. Uterine Pain Score (Numeric/FACES): 7 - Related Data Allergies Allergy/AdvReac Type Severity Reaction Status Date / Time metronidazole [From Flagyl] Allergy Airway Verified 01/30/18 09:43 Tightness Penicillins Allergy Anaphylactic Verified 01/16/18 08:19 Shock metoclopramide [From Reglan] AdvReac Anxiety Verified 01/16/18 08:19 Home Meds: Home Meds Promethazine [Phenergan] 25 mg PO Q6H PRN #20 tab 01/16/18 [Rx] oxyCODONE HCl/Acetaminophen [Percocet 5-325 mg Tablet] 1 - 2 each PO Q4H PRN # 20 tablet 01/16/18 [Rx] Iron 65 mg PO DAILY 01/18/18 [History] Ondansetron [Zofran ODT] 1 tab PO Q6H PRN 01/30/18 [History] oxyCODONE HCl/Acetaminophen [Percocet 5-325 mg Tablet] 1 - 2 each PO Q4H PRN # 24 tablet 01/30/18 [Rx] Past Medical History Respiratory History: Reports: Asthma Other Respiratory History: Exercise induced asthma Other Gastrointestinal History: Bowel obstruction following Genitourinary History: Reports: Renal Calculus Other Genitourinary History: reports vaginal bleeding x40 days 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 WELDER 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: Reports: 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, Hyperemesis, Other (See Below) Other OB/BYN History: endometrioma Other Musculoskeletal History: L-4 and L-5 disk disease Neurological History: Reports: CVA, Vertigo Other Neuro History: Stroke in 2007 Psychiatric History: Reports: Anxiety, Depression Endocrine/Metabolic History: Reports: Obesity/BMI 30+ Oncologic (Cancer) History: Reports: Cervix - Past Surgical History HEENT Surgical History: Reports: Oral Surgery Female Surgical History: Reports: Section, Cervical Cryotherapy, Endometrial Ablation, LEEP, Ureteral Stent Social & Family History - Family History Family Medical History: Noncontributory - Tobacco Use Smoking Status *Q: Current Every Day Smoker Years of Tobacco use: 8 Packs/Tins Daily: 0.4 Used Tobacco, but Quit: No Second Hand Smoke Exposure: No - Caffeine Use Caffeine Use: Reports: None Other Caffeine Use: a cup of coffee or soda "once in a great while." - Recreational Drug Use Recreational Drug Use: Yes Drug Use in Last 12 Months: Yes Recreational Drug Type: Reports: Marijuana/Hashish Recreational Drug Use Frequency: Daily - Living Situation & Occupation Living situation: Reports: , with Spouse, with Family (3 kids) Occupation: Unemployed ED ROS GENERAL - Review of Systems Review Of Systems: See Below Constitutional: Reports: Chills, Decreased Appetite Respiratory: Reports: No Symptoms Cardiovascular: Reports: No Symptoms GI/Abdominal: Reports: Abdominal Pain, Decreased Appetite, Nausea, Vomiting. Denies: Diarrhea Skin: Reports: No Symptoms Neurological: Reports: No Symptoms Psychiatric: Reports: Anxiety ED EXAM, GI/ABD - Physical Exam Exam: See Below Exam Limited By: No Limitations General Appearance: Alert, WD/WN, Anxious Eyes: Bilateral: EOMI Respiratory/Chest: No Respiratory Distress, Lungs Clear, Normal Breath Sounds Cardiovascular: Regular Rate, Rhythm, No Edema, No Murmur GI/Abdominal Exam: Normal Bowel Sounds, Soft, Tender (LLQ tender to palpation, no rebound tenderness). No: Distended Back Exam: Normal Inspection Neurological: Alert, Oriented, CN II-XII Intact, Normal Cognition, No Motor/ Sensory Deficits Psychiatric: Normal Affect, Anxious Skin Exam: Warm, Dry, Intact, Normal Color, No Rash Course - Vital Signs Last Recorded V/S: Last Vital Signs Temp 36.6 C 01/30/18 09:38 Pulse 78 01/30/18 09:38 Resp 16 01/30/18 09:38 BP 132/82 01/30/18 09:38 Pulse Ox 99 01/30/18 09:38 - Orders/Labs/Meds Meds: Medications Discontinued Medications Generic Name Dose Route Start Last Admin Trade Name Freq PRN Reason Stop Dose Admin Oxycodone/Acetaminophen 1 tab 01/30/18 11:19 01/30/18 11:35 Percocet 325-5 Mg PO 01/30/18 11:20 1 tab ONETIME ONE Administration Departure - Departure Disposition: Home, Self-Care 01 Clinical Impression: Pelvic pain, 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 - Discharge Information Prescriptions: oxyCODONE HCl/Acetaminophen [Percocet 5-325 mg Tablet] 1 - 2 each PO Q4H PRN # 24 tablet PRN Reason: pain relief. Instructions: Pelvic Pain, Female, [id number], 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 Referrals: PCP,None [Primary Care Provider] - Forms: ED Department Discharge Additional Instructions: Evaluation in the emergency room today after having a transvaginal ultrasound performed which increased your lower abdominal pain particularly in the left lower quadrant of the pelvis. Therefore treated with Percocet 5/325 milligram orally and a prescription written for the same tablets to be used on an as- needed basis for pain relief until definitive surgical management can be performed. Hopefully we'll get answers to your cervical biopsy report this week. <Sonny Kan - Last Filed: 01/30/18 13:22> ED HPI GENERAL MEDICAL PROBLEM - History of Present Illness Onset: Other (Has acute lower abdominal pain off and left lower quadrant aggravated by transvaginal ultrasound this morning) Duration: Chronic Location: Reports: Abdomen (Left lower quadrant of the abdomen and pelvis. Radiates up and towards the left flank area. She's had several urinalysis collected over the last couple weeks and all of the negative.) Quality: Reports: Ache, Throbbing Severity: Moderate Improves with: Reports: Rest Worsens with: Reports: Movement Context: Reports: Other (Has known severe endometriosis with endometrioma of the abdominal wall. Said multiple laparotomies in this regard. She is also caught abnormal Pap smear was suspicion of cervical cancer which is currently being worked up. She had biopsies done last Sunday and is awaiting the pathology report. This will determine what the next step is in terms of managing her disease process by way of total abdominal hysterectomy and BSO versus requiring radical procedure she has cancer of the cervix.). 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 PROFESSOR: Reports: Acetaminophen, NSAIDS, Other (see below) (Took her last Percocet tablet yesterday morning.) Past Medical History Genitourinary History: Reports: Other (See Below) (Known severe pelvic endometriosis with endometrioma the abdominal wall resected last surgery) Course - Orders/Labs/Meds Meds: Medications Discontinued Medications Generic Name Dose Route Start Last Admin Trade Name Freq PRN Reason Stop Dose Admin Oxycodone/Acetaminophen 1 tab 01/30/18 11:19 01/30/18 11:35 Percocet 325-5 Mg PO 01/30/18 11:20 1 tab ONETIME ONE Administration - Radiology Interpretation Free Text/Narrative:: 32-year-old female presents to the ED with increased left lower quadrant and left pelvic pain post transvaginal ultrasound. Patient has chronic abdominal pain from endometriosis and is waiting biopsies of recent cervical biopsies to determine whether not she has cancer of the cervix versus carcinoma in situ or severe ascus. History in the past would suggest that she has high-grade lesions of the cervix. Apparently 5 biopsies were obtained through colposcopy in the clinic last Sunday. She is awaiting the results. This will be to determine her future in terms of total bowel hysterectomy and BSO be done here versus done by a production truck driver/oncologist which would be more radical procedure for staging. She states she is somewhat nauseated but has Phenergan and Zofran home. She took her last Percocet yesterday morning and since she had her ultrasound this morning she has acute of chronic pain and left lower quadrant. Therefore given 1 Percocet 5/325 Milligram tablet in the ED and a prescription for 20 more tablets until she can get her final biopsy results and hopefully surgical management in the next week. Departure - Departure Time of Disposition: 11:18 Condition: Fair
[2018-01-30] MEDS ORDERED: Acetaminophen/oxyCODONE 325-5 MG Tab PO ONE (11:19)
== END 2018-01-30 11:45 | disposition home or self-care (01) ==
LOC: JD.ED 09:33
DX: N80.9 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, unspecified (principal); F17.210 Nicotine dependence, cigarettes, uncomplicated; Z88.0 Allergy status to penicillin; Z88.8 Allergy status to other drugs, medicaments and biological substances; Z79.899 Other long term (current) drug therapy
CPT/HCPCS: 99284; A9270; 99283

== ENCOUNTER 2018-02-15 10:54 | Emergency (ER) | payer MEDICAID, OTHER, SELFPAY ==
[2018-02-15 11:11] VITALS: BP 142/96
--- NOTE | 2018-02-15 11:20 | EDM.PDOC ---
ED HPI GENERAL MEDICAL PROBLEM - General Chief Complaint: Abdominal Pain Stated Complaint: ABDOMINAL PAIN AND VOMITING Time Seen by Provider: 02/15/18 11:20 Source of Information: Reports: Patient - History of Present Illness INITIAL COMMENTS - FREE TEXT/NARRATIVE: Patient is here for evaluation of severe left lower quadrant and flank pain. Patient states that she does have chronic pain due to her endometriosis. She is reportedly scheduled for hysterectomy on February [address] Pleitez. She reportedly also has cervical abnormalities on pap, unclear if these are cancerous. Patient also has a history of renal stones, did have ureteral stent at one point but does not have this now. S She has history of laparoscopy for endometriosis as well. History of anemia due to her menorrhagia. Previous 3. Patient states that she has been taking ibuprofen for pain. She previously had been prescribed Percocet but she has been out of this the past 10 days. Patient moved here [place] mid December as her parents live here in [place]. She has 3 children and with upcoming gynecological surgery she prefers to do this where she has help. Patient states that she has vomited when the pain gets severe. She states that she does not feel nauseated. She does not feel "ill". She has Phenergan and Zofran at home, she did try to take the Zofran but throughout before it completely resolved. Her pain is fairly localized left lower quadrant and somewhat to left flank. She denies any dysuria or frequency. Denies any hematuria. Her bowel movements have been normal, last BM was this morning. Left Middle Abdomen Pain Score (Numeric/FACES): 10 - Related Data Allergies Allergy/AdvReac Type Severity Reaction Status Date / Time metronidazole [From Flagyl] Allergy Airway Verified 01/30/18 09:43 Tightness Penicillins Allergy Anaphylactic Verified 01/16/18 08:19 Shock metoclopramide [From Reglan] AdvReac Anxiety Verified 01/16/18 08:19 Home Meds: Home Meds Promethazine [Phenergan] 25 mg PO Q6H PRN #20 tab 01/16/18 [Rx] Iron 65 mg PO DAILY 01/18/18 [History] Ondansetron [Zofran ODT] 1 tab PO Q6H PRN 01/30/18 [History] Acetaminophen/oxyCODONE [Percocet 325-5 MG] 1 tab PO Q6HR PRN #15 tab 02/15/18 [ Rx] Ondansetron [Zofran ODT] 4 mg PO Q6H PRN #15 tab.dis 02/15/18 [Rx] Past Medical History Respiratory History: Reports: Asthma Other Respiratory History: Exercise induced asthma Other Gastrointestinal History: Bowel obstruction following Genitourinary History: Reports: Other (See Below) Other Genitourinary History: reports vaginal bleeding x40 days LIDDER History: Reports: 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, Hyperemesis, Other (See Below) Other OB/BYN History: endometrioma Other Musculoskeletal History: L-4 and L-5 disk disease Neurological History: Reports: CVA, Vertigo Other Neuro History: Stroke in 2007 Psychiatric History: Reports: Anxiety, Depression Endocrine/Metabolic History: Reports: Obesity/BMI 30+ Oncologic (Cancer) History: Reports: Cervix - Past Surgical History HEENT Surgical History: Reports: Oral Surgery Social & Family History - Family History Family Medical History: Noncontributory - Tobacco Use Smoking Status *Q: Current Every Day Smoker Years of Tobacco use: 8 Packs/Tins Daily: 0.4 Used Tobacco, but Quit: No Second Hand Smoke Exposure: No - Caffeine Use Caffeine Use: Reports: Soda Other Caffeine Use: a cup of coffee or soda "once in a great while." - Recreational Drug Use Recreational Drug Use: Yes Drug Use in Last 12 Months: Yes Recreational Drug Type: Reports: Marijuana/Hashish Recreational Drug Use Frequency: Daily - Living Situation & Occupation Living situation: Reports: , with Spouse, with Family (3 kids) Occupation: Unemployed ED ROS GENERAL - Review of Systems Review Of Systems: See Below Constitutional: Reports: Fatigue. Denies: Fever, Chills, Decreased Appetite HEENT: Reports: No Symptoms Respiratory: Reports: No Symptoms Cardiovascular: Reports: No Symptoms GI/Abdominal: Reports: Abdominal Pain, Vomiting. Denies: Anorexia, Constipation , Diarrhea, Melena, Nausea : Reports: Flank Pain. Denies: Discharge, Dysuria, Frequency, Hematuria Musculoskeletal: Reports: No Symptoms Skin: Reports: No Symptoms Neurological: Reports: No Symptoms ED EXAM, RENAL/ - Physical Exam Exam: See Below Exam Limited By: No Limitations General Appearance: Alert, WD/WN, Anxious, Mild Distress Throat/Mouth: Normal Inspection, Normal Oropharynx Head: Atraumatic, Normocephalic Neck: Normal Inspection, Supple, Non-Tender Respiratory/Chest: No Respiratory Distress, Normal Breath Sounds, No Accessory Muscle Use Cardiovascular: Normal Peripheral Pulses, No Murmur, Tachycardia GI/Abdominal: Normal Bowel Sounds, Soft, Tender (LLQ) Back Exam: No: CVA Tenderness (L), CVA Tenderness (R) Neurological: Alert, Oriented Psychiatric: Anxious Skin Exam: Warm, Dry, Intact Course - Vital Signs Last Recorded V/S: Last Vital Signs Temp 98.6 F 02/15/18 11:09 Pulse 126 H 02/15/18 11:09 Resp 20 02/15/18 11:09 BP 142/96 H 02/15/18 11:09 Pulse Ox 100 02/15/18 11:09 - Orders/Labs/Meds Orders: Active Orders 24 hr Category Date Time Status HCG QUALITATIVE,URINE [URCHEM] Stat Lab 02/15/18 14:00 Ordered UA W/MICROSCOPIC [URIN] Stat Lab 02/15/18 14:00 Ordered Labs: Laboratory Tests 02/15/18 02/15/18 02/15/18 Range/Units 11:45 11:45 14:00 WBC 9.71 (3.98-10.04) K/mm3 RBC 4.71 (3.98-5.22) M/mm3 Hgb 11.2 (11.2-15.7) gm/L Hct 37.0 (34.1-44.9) % MCV 78.6 L (79.4-94.8) fl MCH 23.8 L (25.6-32.2) pg MCHC 30.3 L (32.2-35.5) g/dl RDW Std Deviation 49.7 H (36.4-46.3) fL Plt Count 597 H (182-369) K/mm3 MPV 9.1 L (9.4-12.3) fl Neutrophils % (Manual) 69 H (40-60) % Band Neutrophils % 0 (0-10) % Lymphocytes % (Manual) 26 (20-40) % Atypical Lymphs % 0 % Monocytes % (Manual) 2 (2-10) % Eosinophils % (Manual) 2 (0.7-5.8) % Basophils % (Manual) 1 (0.1-1.2) Platelet Estimate See note Hypochromasia 1+ slight Anisocytosis 1+ slight Microcytosis 1+ slight RBC Morph Comment Not Reportable Sodium 138 (136-145) mEq/L Potassium 3.9 (3.5-5.1) mEq/L Chloride 105 (98-107) mEq/L Carbon Dioxide 23 (21-32) mEq/L Anion Gap 13.9 (5-15) BUN 17 (7-18) mg/dL Creatinine 0.9 (0.55-1.02) mg/dL Est Cr Clr Drug Dosing 84.79 mL/min Estimated GFR (MDRD) > 60 (>60) mL/min BUN/Creatinine Ratio 18.9 H (14-18) Glucose 88 (74-106) mg/dL Calcium 9.8 (8.5-10.1) mg/dL Total Bilirubin 0.3 (0.2-1.0) mg/dL AST 20 (15-37) U/L ALT 15 (14-59) U/L Alkaline Phosphatase 58 (46-116) U/L C-Reactive Protein 0.3 (<1.0) mg/dL Total Protein 8.6 H (6.4-8.2) g/dl Albumin 4.3 (3.4-5.0) g/dl Globulin 4.3 gm/dL Albumin/Globulin Ratio 1.0 (1-2) Urine Color Yellow (Yellow) Urine Appearance Slt cloudy H (Clear) Urine pH 5.5 (5.0-8.0) Ur Specific Burns > or = 1.030 (1.005-1.030) Urine Protein 1+ H (Negative) Urine Glucose (UA) Negative (Negative) Urine Ketones 1+ H (Negative) Urine Occult Blood Negative (Negative) Urine Nitrite Negative (Negative) Urine Bilirubin 1+ H (Negative) Urine Urobilinogen 0.2 (0.2-1.0) Ur Leukocyte Esterase Negative (Negative) Urine RBC 0-5 (0-5) /hpf Urine WBC 0-5 (0-5) /hpf Ur Epithelial Cells 0-5 (0-5) /hpf Amorphous Sediment Few H (NOT SEEN) /hpf Urine Bacteria Few (FEW) /hpf Urine Mucus Moderate H (FEW) /hpf Urine HCG, Qual (NEGATIVE) 02/15/18 Range/Units 14:00 WBC (3.98-10.04) K/mm3 RBC (3.98-5.22) M/mm3 Hgb (11.2-15.7) gm/L Hct (34.1-44.9) % MCV (79.4-94.8) fl MCH (25.6-32.2) pg MCHC (32.2-35.5) g/dl RDW Std Deviation (36.4-46.3) fL Plt Count (182-369) K/mm3 MPV (9.4-12.3) fl Neutrophils % (Manual) (40-60) % Band Neutrophils % (0-10) % Lymphocytes % (Manual) (20-40) % Atypical Lymphs % % Monocytes % (Manual) (2-10) % Eosinophils % (Manual) (0.7-5.8) % Basophils % (Manual) (0.1-1.2) Platelet Estimate Hypochromasia Anisocytosis Microcytosis RBC Morph Comment Sodium (136-145) mEq/L Potassium (3.5-5.1) mEq/L Chloride (98-107) mEq/L Carbon Dioxide (21-32) mEq/L Anion Gap (5-15) BUN (7-18) mg/dL Creatinine (0.55-1.02) mg/dL Est Cr Clr Drug Dosing mL/min Estimated GFR (MDRD) (>60) mL/min BUN/Creatinine Ratio (14-18) Glucose (74-106) mg/dL Calcium (8.5-10.1) mg/dL Total Bilirubin (0.2-1.0) mg/dL AST (15-37) U/L ALT (14-59) U/L Alkaline Phosphatase (46-116) U/L C-Reactive Protein (<1.0) mg/dL Total Protein (6.4-8.2) g/dl Albumin (3.4-5.0) g/dl Globulin gm/dL Albumin/Globulin Ratio (1-2) Urine Color (Yellow) Urine Appearance (Clear) Urine pH (5.0-8.0) Ur Specific Burns (1.005-1.030) Urine Protein (Negative) Urine Glucose (UA) (Negative) Urine Ketones (Negative) Urine Occult Blood (Negative) Urine Nitrite (Negative) Urine Bilirubin (Negative) Urine Urobilinogen (0.2-1.0) Ur Leukocyte Esterase (Negative) Urine RBC (0-5) /hpf Urine WBC (0-5) /hpf Ur Epithelial Cells (0-5) /hpf Amorphous Sediment (NOT SEEN) /hpf Urine Bacteria (FEW) /hpf Urine Mucus (FEW) /hpf Urine HCG, Qual Negative (NEGATIVE) Meds: Medications Discontinued Medications Generic Name Dose Route Start Last Admin Trade Name Freq PRN Reason Stop Dose Admin Al Hydroxide/Mg Hydroxide 30 0 ml 02/15/18 15:18 02/15/18 15:28 ml/ Lidocaine HCl 15 ml PO 02/15/18 15:19 45 ml ONETIME ONE Administration Sodium Chloride 1,000 mls @ 999 mls/hr 02/15/18 12:38 02/15/18 12:54 Normal Saline IV 02/15/18 13:38 999 mls/hr ONETIME ONE Administration Sodium Chloride 1,000 mls @ 250 mls/hr 02/15/18 14:30 02/15/18 14:36 Normal Saline IV 02/15/18 18:29 250 mls/hr ONETIME ONE Administration Iopamidol 125 ml 02/15/18 14:22 02/15/18 14:57 Isovue-300 (61%) IVPUSH 02/15/18 14:23 125 ml ONETIME ONE Administration Ketorolac Tromethamine 30 mg 02/15/18 11:39 02/15/18 11:57 Toradol IVPUSH 02/15/18 11:40 30 mg ONETIME ONE Administration Lorazepam 1 mg 02/15/18 11:40 02/15/18 11:58 Ativan IVPUSH 02/15/18 11:41 1 mg ONETIME ONE Administration Lorazepam 1 mg 02/15/18 13:36 02/15/18 13:54 Ativan IVPUSH 02/15/18 13:37 1 mg ONETIME ONE Administration Ondansetron HCl 4 mg 02/15/18 11:39 02/15/18 11:56 Zofran IVPUSH 02/15/18 11:40 4 mg ONETIME ONE Administration Ondansetron HCl 4 mg 02/15/18 14:30 02/15/18 14:36 Zofran IVPUSH 02/15/18 14:31 4 mg ONETIME ONE Administration Oxycodone/Acetaminophen 1 tab 02/15/18 12:39 02/15/18 12:56 Percocet 325-5 Mg PO 02/15/18 12:40 1 tab ONETIME ONE Administration Sodium Chloride 10 ml 02/15/18 14:22 02/15/18 14:57 Saline Flush FLUSH 10 ml ONETIME PRN Administration IV FLUSH - Re-Assessments/Exams Free Text/Narrative Re-Assessment/Exam: Patient initially very anxious and appears to be in pain. Will get basic lab work and urinalysis. 1 L normal saline, 4 mg IV Zofran, 30mg IV ketorolac and 1mg lorazepam IV. Patient continues to have pain, will give PO hydrocodone. Improved with hydrocodone but she is still quite anxious, will give another 1mg of lorazepam. Patient's pain is different than her chronic pain and is more severe will get a CT abdomen/pelvis. With her history of renal stones will not use oral contrast. Patient denies any current drug use. She states that she did use marijuana when she was living in [place]. [facility] reviewed patient has had 20 controlled substance prescriptions from 10 different prescribers since August 2016. Most recently 24qty on 01/30/2018 from ER. Prior to that 20 and 40 quantity from ODD BUNDLE WORKER on 01/22 and 01/25/2018 as well as 20 quantity in the emergency room on for a total of 104 hydrocodone/acetominophen in the past month. CT demonstrates no specific cause for her pain. 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 Upon reexamination patient is sleeping and appears to be quite comfortable. Will discharge her home with enough Percocet to get her until Sunday at which time she will need to follow up with her ODD BUNDLE WORKER to discuss further/more permanent treatment for her symptoms. I did discuss with patient at length that controlled substances will no longer be refilled for her through the emergency room. She is to follow-up with ODD BUNDLE WORKER and establish with a PCP and she verbalized understanding of this. 02/15/18 12:48 02/15/18 16:58 Departure - Departure Time of Disposition: 15:44 Disposition: Home, Self-Care 01 Condition: Fair Clinical Impression: Chronic female pelvic pain Nausea & vomiting Qualifiers: Vomiting type: bilious vomiting Qualified Code(s): R11.14 - Bilious vomiting Anemia Qualifiers: Anemia type: iron deficiency - Discharge Information Prescriptions: Acetaminophen/oxyCODONE [Percocet 325-5 MG] 1 tab PO Q6HR PRN #15 tab PRN Reason: Pain Ondansetron [Zofran ODT] 4 mg PO Q6H PRN #15 tab.dis PRN Reason: Nausea Instructions: Pelvic Pain, Female, [id number] Referrals: Jassi Pleitez MD [Primary Care Provider] - Forms: ED Department Discharge Additional Instructions: You were evaluated in the emergency room for a flare of your chronic pelvic pain. Exam here today including blood work, urinalysis and a CT of abdomen and pelvis were all essentially normal. I suspect that your pain is more related to your chronic endometriosis. You need to follow up with her optical fabricator. You were given a small quantity of Percocet here today. You have filled a very large quantity over the past month and this will not the filled again to the emergency room. You need to discuss options for treating your pain with your optical fabricator and establish with a primary/family practice medical provider. Certainly return to the emergency room if needed. - My Orders Last 24 Hours: My Active Orders 02/15/18 14:00 HCG QUALITATIVE,URINE [URCHEM] Stat UA W/MICROSCOPIC [URIN] Stat - Assessment/Plan Last 24 Hours: My Active Orders 02/15/18 14:00 HCG QUALITATIVE,URINE [URCHEM] Stat UA W/MICROSCOPIC [URIN] Stat
[2018-02-15] MEDS ORDERED: Ketorolac 30 MG/ML SDV IVPUSH ONE (11:39)
[2018-02-15] MEDS ORDERED: Ondansetron 4 MG/2 ML SDV IVPUSH ONE ×2 (11:39→14:30)
[2018-02-15] MEDS ORDERED: LORazepam 2 MG/ML SDV IVPUSH ONE ×2 (11:40→13:36)
[2018-02-15] MEDS ORDERED: Sodium Chloride 0.9% 1,000 ML IV ONE ×2 (12:38→14:30)
[2018-02-15] MEDS ORDERED: Acetaminophen/oxyCODONE 325-5 MG Tab PO ONE (12:39)
[2018-02-15] MEDS ORDERED: Sodium Chloride 0.9% 10 ML Syringe FLUSH PRN (14:22)
[2018-02-15] MEDS ORDERED: Iopamidol 612 MG/ML 150 ML Bottle IVPUSH ONE (14:22)
[2018-02-15] MEDS ORDERED: Alum Hydrox/Mag Hydrox/Simeth 30 ML, Lidocaine 2% 15 ML PO ONE ×2 (15:18)
--- NOTE | 2018-02-15 15:20 | CT ---
CT abdomen and pelvis (without and with intravenous contrast) Technique: Multiple axial sections were obtained from above the dome of the diaphragm inferiorly through the pubic symphysis. Intravenous and oral contrast not utilized. Intravenous contrast then utilized an image obtained through the kidneys at 40 seconds. 5 minute delayed images were then obtained from above the dome of the diaphragm inferiorly through the pubic symphysis. No oral contrast has been given. Comparison: Previous noncontrast CT study of 06/09/17. Findings: Kidneys show no abnormal calcifications. No abnormal calcifications are seen along the course of the ureters. Kidneys show symmetric contrast enhancement. Delayed images shows no renal mass or cyst. No filling defects are seen within the collecting systems. Ureters show contrast with no dilatation. Contrast is noted within the bladder. Visualized lung bases shows nothing acute. Liver shows no focal parenchymal abnormality. Spleen appears normal. Adrenal glands show no nodule. Gallbladder contains no calcified gallstones. No discrete abnormality is seen within the pancreas. Aorta shows no aneurysmal dilatation. No retroperitoneal adenopathy is seen. Appendix is seen and shows no dilatation. No pelvic mass or adenopathy is seen. Incidental sterilization clips are seen within the pelvis. No bowel dilatation is seen. 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 Impression: 1. No renal calculi, ureteral dilatation, ureteral stone or renal mass is seen. 2. 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 3. Nothing acute is identified on CT study of the abdomen and pelvis performed without and with intravenous contrast. Diagnostic code #2
== END 2018-02-15 16:00 | disposition home or self-care (01) ==
LOC: JD.ED 10:54
DX: D50.9 Iron deficiency anemia, unspecified (principal); R10.2 Pelvic and perineal pain; G89.29 Other chronic pain; R11.14 Bilious vomiting; F17.210 Nicotine dependence, cigarettes, uncomplicated; Z88.0 Allergy status to penicillin; Z88.8 Allergy status to other drugs, medicaments and biological substances; Z88.1 Allergy status to other antibiotic agents; Z79.899 Other long term (current) drug therapy
CPT/HCPCS: 36415; 74178; 80053; 81001; 81025; 85025; 86140; 96361; 96374; 96375; 96376; 99284; A9270; J1885; J2060; J2405; J7040; J7050; Q9967

== ENCOUNTER 2018-02-19 08:02 | Emergency (ER) | payer MEDICAID ==
--- NOTE | 2018-02-19 08:06 | EDM.PDOC ---
ED HPI GENERAL MEDICAL PROBLEM - General Chief Complaint: Syncope Stated Complaint: VOMITING Time Seen by Provider: 02/19/18 08:06 Source of Information: Reports: Patient History Limitations: Reports: No Limitations - History of Present Illness INITIAL COMMENTS - FREE TEXT/NARRATIVE: 32-year-old female presents to the ED after a syncopal event occurred in her bathroom at home this morning. Patient states she was vomiting due to her abdominal pain and passed out. She struck her left lateral shoulder on the vanity on the way to the floor. Apparently she was exhibiting convulsive like activity when she went to the floor. She has no known seizure history. History suggests that her chronic abdominal pain causes her to have intermittent nausea and vomiting. It is likely that increased vagal tone caused her to pass out and the cause convulsive activity was more related to reemergence phenomenon. She arrives in the ED quite anxious and tearful. Continues to have diffuse lower abdominal pain which is chronic due to suspect endometriosis. She is scheduled for total abdominal hysterectomy and excision expiration of her pelvis for endometriosis next week on February 26. Recent investigations of her cervix revealed no evidence of cancer of the cervix but high-grade metaplasia. She still has terminal dysuria i.e. pain at the end of voiding. States her bowel function has been okay. Clinically she has not lost any weight. She is hyper ventilating at the time of our initial assessment and states that her hands and feet are quite numb and tingly. I.e. presentation to the ED is very dramatic with excessive tears and rocking back and forth supposedly due to severe lower abdominal pain. Onset: Today (Increased abdominal pain today with a vasovagal attack and syncope in the bathroom at home.), Other (She has chronic lower abdominal and pelvic pain suspect due to endometriosis.) Onset Date: 02/19/18 Onset Time: 07:15 Duration: Minutes: Location: Reports: Other (Injury to her right shoulder she believes when she struck the vanity on her way to the floor from her syncopal event. Of note she was vomiting in the toilet) Quality: Reports: Ache ( when this occurred.), Other Severity: Moderate (Has full range of motion of her right shoulder.) Improves with: Reports: None Worsens with: Reports: None Context: Reports: Other (Chronic lower abdominal pain syndrome secondary to suspect endometriosis.). Denies: Activity, Exercise, Lifting, Sick Contact, Trauma Associated Symptoms: Reports: Malaise, Nausea/Vomiting, Weakness. Denies: Confusion, Chest Pain, Cough, cough w sputum, Diaphoresis, Fever/Chills, Headaches, Loss of Appetite, Rash, Seizure, Shortness of Breath, Syncope Treatments [employer]: Reports: Other (see below) (None.) Headache Pain Score (Numeric/FACES): 9 - Related Data Allergies Allergy/AdvReac Type Severity Reaction Status Date / Time metronidazole [From Flagyl] Allergy Airway Verified 02/19/18 08:11 Tightness Penicillins Allergy Anaphylactic Verified 02/19/18 08:11 Shock metoclopramide [From Reglan] AdvReac Anxiety Verified 02/19/18 08:11 Home Meds: Home Meds Iron 65 mg PO DAILY 01/18/18 [History] Ondansetron [Zofran ODT] 4 mg PO Q6H PRN #15 tab.dis 02/15/18 [Rx] Promethazine [Phenergan] 25 mg PO Q6H PRN #20 tab 02/19/18 [Rx] oxyCODONE HCl/Acetaminophen [Percocet 10-325 mg Tablet] 1 each PO Q6H PRN #25 tablet 02/19/18 [Rx] Past Medical History Respiratory History: Reports: Asthma Other Respiratory History: Exercise induced asthma Other Gastrointestinal History: Bowel obstruction following Genitourinary History: Reports: Other (See Below) Other Genitourinary History: reports vaginal bleeding x40 days [employer] History: Reports: 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, Hyperemesis, Other (See Below) Other OB/BYN History: endometrioma Other Musculoskeletal History: L-4 and L-5 disk disease Neurological History: Reports: CVA, Vertigo Other Neuro History: Stroke in 2007 Psychiatric History: Reports: Anxiety, Depression Endocrine/Metabolic History: Reports: Obesity/BMI 30+ Oncologic (Cancer) History: Reports: Cervix - Past Surgical History HEENT Surgical History: Reports: Oral Surgery Social & Family History - Family History Family Medical History: Noncontributory - Tobacco Use Smoking Status *Q: Current Every Day Smoker Years of Tobacco use: 8 Packs/Tins Daily: 0.4 Used Tobacco, but Quit: No Second Hand Smoke Exposure: No - Caffeine Use Caffeine Use: Reports: Soda Other Caffeine Use: a cup of coffee or soda "once in a great while." - Recreational Drug Use Recreational Drug Use: Yes Drug Use in Last 12 Months: Yes Recreational Drug Type: Reports: Marijuana/Hashish Recreational Drug Use Frequency: Daily - Living Situation & Occupation Living situation: Reports: , with Spouse, with Family (3 kids) Occupation: Unemployed ED ROS GENERAL - Review of Systems Review Of Systems: See Below Constitutional: Reports: Malaise, Weakness, Fatigue, Decreased Appetite. Denies : Fever, Chills, Weight Loss HEENT: Reports: No Symptoms Respiratory: Reports: Shortness of Breath (Hyperventilation syndrome at the time of my assessment.) Cardiovascular: Denies: No Symptoms, Chest Pain, Blood Pressure Problem, Claudication, Dyspnea on Exertion, Edema, Lightheadedness, Orthopnea Endocrine: Reports: Fatigue GI/Abdominal: Reports: Abdominal Pain, Constipation, Decreased Appetite, Nausea , Vomiting (Occurs intermittently in response to the severity of her abdominal pain.). Denies: Anorexia (Chronic severe lower abdominal pain suspect due to endometriosis.), Black Stool, Bloody Stool, Diarrhea, Difficulty Swallowing, Distension, Flatus, Hematemesis, Hematochezia, Melena, Stool Incontinence, Other : Reports: Dysuria (Terminal dysuria.) Musculoskeletal: Reports: Back Pain, Other (Right shoulder pain from syncopal event this morning.) Skin: Reports: No Symptoms Neurological: Reports: Dizziness, Numbness, Tingling (Hands and feet and legs due to hyperventilation syndrome.) Psychiatric: Reports: Agitation, Anxiety Hematologic/Lymphatic: Reports: Anemia Immunologic: Reports: No Symptoms ED EXAM, GI/ABD - Physical Exam Exam: See Below Exam Limited By: No Limitations General Appearance: Moderate Distress (Tearful and hyperventilating in the ED.) Eyes: Bilateral: Normal Appearance, Periorbital Swelling (For periorbital swelling and erythema from crying.) Throat/Mouth: Normal Inspection, Normal Lips, Normal Teeth, Normal Oropharynx Head: Atraumatic, Normocephalic Neck: Normal Inspection, Supple, Non-Tender, Full Range of Motion. No: Lymphadenopathy (L), Lymphadenopathy (R) Respiratory/Chest: Lungs Clear, Normal Breath Sounds, Chest Non-Tender, Respiratory Distress (Mild tachypnea at this time or exam.), Other (Denies any pain in her ribs since her syncopal event.) Cardiovascular: No Edema, No Gallop, No Murmur, No Rub, Tachycardia ( Tachycardia at rest 1 10/m) GI/Abdominal Exam: Normal Bowel Sounds, Soft, Non-Tender, No Organomegaly, No Abnormal Bruit, No Mass, Pelvis Stable, Tender. No: Guarding, Rigid, Rebound ( Tenderness mostly suprapubically. No guarding or rebound.) Extremities: Normal Inspection, Normal Range of Motion, Non-Tender, No Pedal Edema Neurological: Alert, Oriented, CN II-XII Intact, Normal Cognition, Normal Gait, Normal Reflexes, No Motor/Sensory Deficits Psychiatric: Normal Affect, Normal Mood Skin Exam: Warm, Dry, Intact, Normal Color, No Rash Course - Vital Signs Last Recorded V/S: Last Vital Signs Temp 36.8 C 02/19/18 08:09 Pulse 109 H 02/19/18 08:09 Resp 18 02/19/18 08:09 BP 122/79 02/19/18 08:09 Pulse Ox 100 02/19/18 08:09 Orthostatic Blood Pressure [ 110/73 Standing] Orthostatic Blood Pressure [ 113/81 Sitting] Orthostatic Blood Pressure [ 118/74 Supine] - Orders/Labs/Meds Orders: Active Orders 24 hr Category Date Time Status Orthostatic Vital Signs [RC] ASDIRECTED Care 02/19/18 08:14 Active URINALYSIS W/MICROSCOPIC [UA W/MICROSCOPIC] [URIN] Stat Lab 02/19/18 09:45 Ordered Labs: Laboratory Tests 02/19/18 02/19/18 02/19/18 Range/Units 08:45 08:45 09:45 WBC 8.20 (3.98-10.04) K/mm3 RBC 4.36 (3.98-5.22) M/mm3 Hgb 10.4 L (11.2-15.7) gm/L Hct 34.2 (34.1-44.9) % MCV 78.4 L (79.4-94.8) fl MCH 23.9 L (25.6-32.2) pg MCHC 30.4 L (32.2-35.5) g/dl RDW Std Deviation 48.4 H (36.4-46.3) fL Plt Count 508 H (182-369) K/mm3 MPV 9.3 L (9.4-12.3) fl Neutrophils % (Manual) 59 (40-60) % Band Neutrophils % 0 (0-10) % Lymphocytes % (Manual) 35 (20-40) % Atypical Lymphs % 0 % Monocytes % (Manual) 4 (2-10) % Eosinophils % (Manual) 1 (0.7-5.8) % Basophils % (Manual) 1 (0.1-1.2) Platelet Estimate See note Polychromasia 1+ slight Hypochromasia 1+ slight Anisocytosis 1+ slight RBC Morph Comment Not Reportable Sodium 137 (136-145) mEq/L Potassium 4.5 (3.5-5.1) mEq/L Chloride 105 (98-107) mEq/L Carbon Dioxide 20 L (21-32) mEq/L Anion Gap 16.5 H (5-15) BUN 16 (7-18) mg/dL Creatinine 0.9 (0.55-1.02) mg/dL Est Cr Clr Drug Dosing 84.79 mL/min Estimated GFR (MDRD) > 60 (>60) mL/min BUN/Creatinine Ratio 17.8 (14-18) Glucose 95 (74-106) mg/dL Calcium 9.4 (8.5-10.1) mg/dL Total Bilirubin 0.2 (0.2-1.0) mg/dL AST 13 L (15-37) U/L ALT 14 (14-59) U/L Alkaline Phosphatase 51 (46-116) U/L C-Reactive Protein < 0.2 (<1.0) mg/dL Total Protein 7.2 (6.4-8.2) g/dl Albumin 3.5 (3.4-5.0) g/dl Globulin 3.7 gm/dL Albumin/Globulin Ratio 1.0 (1-2) Urine Color Yellow (Yellow) Urine Appearance Clear (Clear) Urine pH 7.0 (5.0-8.0) Ur Specific Zearing 1.020 (1.005-1.030) Urine Protein Negative (Negative) Urine Glucose (UA) Negative (Negative) Urine Ketones Negative (Negative) Urine Occult Blood Negative (Negative) Urine Nitrite Negative (Negative) Urine Bilirubin Negative (Negative) Urine Urobilinogen 0.2 (0.2-1.0) Ur Leukocyte Esterase Negative (Negative) Urine RBC Not seen (0-5) /hpf Urine WBC 0-5 (0-5) /hpf Ur Epithelial Cells 0-5 (0-5) /hpf Amorphous Sediment Few H (NOT SEEN) /hpf Urine Bacteria Few (FEW) /hpf Urine Mucus Few (FEW) /hpf Meds: Medications Discontinued Medications Generic Name Dose Route Start Last Admin Trade Name Russq PRN Reason Stop Dose Admin Diphenhydramine HCl 25 mg 02/19/18 11:09 02/19/18 11:24 Benadryl IVPUSH 02/19/18 11:10 25 mg ONETIME ONE Administration Hydromorphone HCl 1 mg 02/19/18 08:31 02/19/18 08:52 Dilaudid IVPUSH 02/19/18 08:32 1 mg ONETIME ONE Administration Hydromorphone HCl 0.5 mg 02/19/18 11:44 02/19/18 11:59 Dilaudid IVPUSH 02/19/18 11:45 0.5 mg ONETIME ONE Administration Dextrose/Sodium Chloride 1,000 mls @ 999 mls/hr 02/19/18 08:15 02/19/18 08:50 Dextrose 5%-Normal Saline IV 999 mls/hr ASDIRECTED YAMIL Administration Promethazine HCl 25 mg/ Sodium 51 mls @ 100 mls/hr 02/19/18 11:08 02/19/18 11 :27 Chloride IV 02/19/18 11:38 100 mls/hr ONETIME ONE Administration Ketorolac Tromethamine 30 mg 02/19/18 11:45 02/19/18 11:58 Toradol IVPUSH 30 mg ONETIME YAMIL Administration Lorazepam 0.5 mg 02/19/18 08:32 02/19/18 08:52 Ativan IVPUSH 02/19/18 08:33 0.5 mg ONETIME ONE Administration Lorazepam 1 mg 02/19/18 09:39 02/19/18 09:45 Ativan IVPUSH 02/19/18 09:40 1 mg ONETIME ONE Administration Magnesium Citrate 210 ml 02/19/18 12:06 02/19/18 12:14 Citrate Of Magnesia PO 02/19/18 12:07 210 ml ONETIME ONE Administration Ondansetron HCl 4 mg 02/19/18 08:32 02/19/18 08:51 Zofran IVPUSH 02/19/18 08:33 4 mg ONETIME ONE Administration Ondansetron HCl 4 mg 02/19/18 09:38 02/19/18 09:44 Zofran IVPUSH 02/19/18 09:39 4 mg ONETIME ONE Administration - Radiology Interpretation Free Text/Narrative:: 32-year-old female presents to the ED after experiencing a syncopal event in the bathroom at home this morning. She has chronic lower abdominal pain presumably due to endometriosis of the involving the bladder and pelvic floor. She is scheduled for a total abdominal hysterectomy and BSO next February 26. She uses narcotic pain medication intermittently for pain relief. This morning the pain was very bad and she's had a tough night. She states she was in the bathroom vomiting secondary to pain response and then apparently collapsed to the floor and exhibited convulsive like activity. History suggests vasovagal collapse with reemergence phenomenon versus a true seizure. No signs of trauma to her head. She is contused her right shoulder but she has full range of motion suggesting contusion to the deltoid musculature. Her chief complaint is lower abdominal pain and nausea and vomiting. She is hyperventilating and very anxious at the time of our exam. Plan IV D5 normal saline at open. Ativan 0.5 mg IV with Dilaudid 1 mg IV and Zofran 4 mg IV. Labs will be routine as well as a urinalysis and one view of the abdomen to be done. Clinically she has a benign abdomen. - Re-Assessments/Exams Free Text/Narrative Re-Assessment/Exam: 02/19/18 09:39 still having significant nausea. We'll repeat Zofran 4 mg IV. She had mentioned that she was having more pain. However the Dilaudid that she was given initially hasn't had much time to work yet. Still hyperventilating and anxious. Will give Ativan 1 mg IV. 02/19/18 10:23 Labs are back. Normal white count at 8.20 with 59% neutrophils and no bands reported. Hemoglobin is 10.4 with hematocrit of 34.2. He met MCV is low at 78.4. Platelet count is 508,000. This is mildly elevated. Is 137 potassium of 4.5. Chloride is 105 with a bicarbonate 20. Anion gap is slightly elevated at 16.5 in the fasting state. BUN is 16 with a creatinine of 0.9. Glucose is 95 with a calcium 9.4. Total bilirubin is 0.2. AST is 13 ALT is a 14. Alk phosphatase is 51. C-reactive protein is less than 0.2. Urinalysis has not been yet collected. 02/19/18 11:09 patient reports pain is better but she remains very nauseated. She states Phenergan has worked well for her in the past. Will therefore order Phenergan 25 mg IV which will be in placed in the minibag and infused over 15 minutes. We'll also give her Benadryl 25 mg IV to prevent any dystonic reaction as she's already had 8 mg of Zofran. Her bowel pain is much improved. The KUB reveals increased stool throughout the colon particularly the right hemicolon and transverse colon and left lower colon. From taking narcotics and slowing the bowel function down. It is certainly going to be contributing to her lower abdominal pain. 02/19/18 11:45 nausea starting to improve. Having increased lower abdominal pain. Will give Toradol 30 mg IV and repeat Dilaudid 0.5 mg IV. Will be to discharge her to home on oral pain meds. She is scheduled for total bili hysterectomy and BSO and pelvic exploration for suspect severe endometriosis in a week's time. Urinalysis is normal as well. 02/19/18 12:05 She is feeling much improved. She has normal verbal response and cognitive function and is certainly much more in control of her emotions at this time. Able to swallow ice chips and fluids without any nausea at this time. Plan will be to discharge her home with Phenergan tablets 25 mg one every 6 hours. For nausea or vomiting relief as they seem to be much more effectual then Zofran. Percocet 10/325 mg tablets one every 6 hours as needed for pain relief until she can have her surgery performed next week. 25 tablets provided. Will use Citroma 7 ounces by mouth mixed with 5 discussed of juice by mouth once to provide bowel cleanse. Departure - Departure Time of Disposition: 12:06 Disposition: Home, Self-Care 01 Condition: Fair Clinical Impression: 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 determined by laparoscopy, Constipation by delayed colonic transit Intractable nausea and vomiting Qualifiers: Vomiting type: unspecified Qualified Code(s): R11.2 - Nausea with vomiting, unspecified Abdominal pain Qualifiers: Abdominal location: left lower quadrant Qualified Code(s): R10.32 - Left lower quadrant pain Anemia Qualifiers: Anemia type: iron deficiency Iron deficiency anemia type: chronic blood loss Qualified Code(s): D50.0 - Iron deficiency anemia secondary to blood loss ( chronic) - Discharge Information Prescriptions: oxyCODONE HCl/Acetaminophen [Percocet 10-325 mg Tablet] 1 each PO Q6H PRN #25 tablet PRN Reason: Severe abdominal pain Promethazine [Phenergan] 25 mg PO Q6H PRN #20 tab PRN Reason: Nausea or vomiting Instructions: Abdominal Pain, Adult, [id number] Referrals: PCP,None [Primary Care Provider] - Forms: ED Department Discharge Additional Instructions: Evaluation the emergency room this morning in regards to intractable nausea and vomiting secondary to acute exacerbation of lower abdominal pain. Lower abdominal pain and pelvic pain is felt to be secondary to severe endometriosis. Currently awaiting surgery to remove the uterus and ovaries and hopefully bring endometriosis under control. Surgery is planned in one week's time. Lab work done in the ED reveals hemoglobin is slowly improving. It is still low with a hemoglobin of 10.2. Still a little short on iron as well. X-ray of the abdomen revealed increased stool throughout the colon mostly on the right side and then the left lower colon and rectal compatible with mild constipation. This may or may not be contributing to some of your lower abdominal pain. Just use of Citroma 7 ounces by mouth with 5 or 6 ounces of juice of choice taken orally once. This usually start work in 1-3 hours and usually the bowels were work 3 or 4 times often ending and mild diarrhea. Pain relief in the ED was achieved with Dilaudid and Toradol. Nausea relief with Zofran 4 mg IV 2 which did not seem to be effectual. He was therefore given Phenergan 25 mg intravenously once work well for you and has worked well for you in the past. Therefore I will discharge her home on Phenergan tablets 25 mg every 6 hours as needed for nausea relief. Percocet tabs 10/325 mg one every 6 hours as needed for relief of severe abdominal pain. Suggest staying on MiraLAX powder 17 g or 1 scoop every day while taking pain pills for 2 weeks daily after having ear surgery to prevent constipation occurrence. Note of course taking narcotics long-term for pain is potentially addicting. You may have to be weaned from this medication after surgery to prevent acute withdrawal. - My Orders Last 24 Hours: My Active Orders 02/19/18 08:14 Orthostatic Vital Signs [RC] ASDIRECTED 02/19/18 09:45 URINALYSIS W/MICROSCOPIC [UA W/MICROSCOPIC] [URIN] Stat - Assessment/Plan Last 24 Hours: My Active Orders 02/19/18 08:14 Orthostatic Vital Signs [RC] ASDIRECTED 02/19/18 09:45 URINALYSIS W/MICROSCOPIC [UA W/MICROSCOPIC] [URIN] Stat
[2018-02-19 08:11] VITALS: BP 122/79
[2018-02-19] MEDS ORDERED: Dextrose 5%-0.9% NaCl 1,000 ML IV SCH (08:15)
[2018-02-19] MEDS ORDERED: HYDROmorphone 0.5 MG/0.5 ML SYRINGE IVPUSH ONE ×2 (08:31→11:44)
[2018-02-19] MEDS ORDERED: Ondansetron 4 MG/2 ML SDV IVPUSH ONE ×2 (08:32→09:38)
[2018-02-19] MEDS ORDERED: LORazepam 2 MG/ML SDV IVPUSH ONE ×2 (08:32→09:39)
--- NOTE | 2018-02-19 09:28 | CR ---
Abdomen: Supine view of the abdomen was obtained. Comparison: Prior abdominal x-ray of 01/16/18. Surgical clips are again noted within the pelvis. Mild amount of scattered stool is noted throughout the colon. Bowel gas pattern is otherwise unremarkable. Bony structures show minimal scoliosis within the spine. No abnormal calcifications or soft tissue abnormality is seen. Impression: 1. Minimal stool throughout the colon. Other incidental findings. Diagnostic code #2
[2018-02-19] MEDS ORDERED: Promethazine 25 MG in Sodium Chloride 0.9% 50 ML IV ONE (11:08)
[2018-02-19] MEDS ORDERED: diphenhydrAMINE 50 MG/ML SDV IVPUSH ONE (11:09)
[2018-02-19] MEDS ORDERED: Ketorolac 30 MG/ML SDV IVPUSH SCH (11:45)
[2018-02-19] MEDS ORDERED: Magnesium Citrate Solution 296 ML Bottle PO ONE (12:06)
== END 2018-02-19 12:21 | disposition home or self-care (01) ==
LOC: JD.ED 08:02
DX: N80.9 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, unspecified (principal); K59.01 Slow transit constipation; D50.0 Iron deficiency anemia secondary to blood loss (chronic); F17.210 Nicotine dependence, cigarettes, uncomplicated; Z88.1 Allergy status to other antibiotic agents; Z88.0 Allergy status to penicillin; Z88.8 Allergy status to other drugs, medicaments and biological substances; Z79.899 Other long term (current) drug therapy
CPT/HCPCS: 36415; 74018; 80053; 81001; 85025; 86140; 96361; 96365; 96375; 96376; 99284; A9270; J1170; J1200; J1885; J2060; J2405; J2550; J7042; J7050

== ENCOUNTER 2018-02-22 10:08 | Emergency (ER) | payer MEDICAID ==
[2018-02-22 10:23] VITALS: BP 124/84
[2018-02-22] MEDS ORDERED: Sodium Chloride 0.9% 1,000 ML IV STA (10:42)
[2018-02-22] MEDS ORDERED: Promethazine 25 MG/ML SDV IM ONE (10:42)
[2018-02-22] MEDS ORDERED: Sodium Chloride 0.9% 10 ML Syringe FLUSH PRN (10:42)
[2018-02-22] MEDS ORDERED: HYDROmorphone 0.5 MG/0.5 ML SYRINGE IVPUSH ONE (10:43)
[2018-02-22] MEDS ORDERED: fentaNYL 100 MCG/2 ML SDV IVPUSH ONE (11:35)
--- NOTE | 2018-02-22 12:13 | EDM.PDOC ---
ED HPI GENERAL MEDICAL PROBLEM - General Chief Complaint: Abdominal Pain Stated Complaint: VOMITING AND ABDOMINAL PAIN Time Seen by Provider: 02/22/18 10:29 Source of Information: Reports: Patient History Limitations: Reports: No Limitations - History of Present Illness INITIAL COMMENTS - FREE TEXT/NARRATIVE: The patient presents with abdominal pain, nausea and vomiting. This has been an ongoing problem for the past 6 months. She has been seen multiple times and Dr Pleitez will be doing a hystorectomy next week. She is out of her phenergan and percocet. She has no fever, chills, cough, chest pain or shortness of breath. Onset: Gradual Duration: Week(s): Location: Reports: Abdomen Quality: Reports: Sharp Severity: Severe Improves with: Reports: None Worsens with: Reports: None Associated Symptoms: Reports: Nausea/Vomiting. Denies: Chest Pain, Cough, Fever /Chills, Shortness of Breath Lower Abdomen Pain Score (Numeric/FACES): 7 - Related Data Allergies Allergy/AdvReac Type Severity Reaction Status Date / Time metronidazole [From Flagyl] Allergy Airway Verified 02/19/18 08:11 Tightness Penicillins Allergy Anaphylactic Verified 02/19/18 08:11 Shock metoclopramide [From Reglan] AdvReac Anxiety Verified 02/19/18 08:11 Home Meds: Home Meds Iron 65 mg PO DAILY 01/18/18 [History] Ondansetron [Zofran ODT] 4 mg PO Q6H PRN #15 tab.dis 02/15/18 [Rx] Promethazine [Phenergan] 25 mg PO Q6H PRN #20 tab 02/19/18 [Rx] oxyCODONE HCl/Acetaminophen [Percocet 10-325 mg Tablet] 1 each PO Q6H PRN #25 tablet 02/19/18 [Rx] Bisacodyl [Laxative] 5 mg PO DAILY PRN 02/22/18 [History] Promethazine [Phenergan] 25 mg PO Q6H PRN #30 tab 02/22/18 [Rx] oxyCODONE HCl/Acetaminophen [Percocet 5-325 mg Tablet] 1 - 2 each PO Q6HR PRN # 20 tablet 02/22/18 [Rx] Past Medical History HEENT History: Reports: Impaired Vision Respiratory History: Reports: Asthma Other Respiratory History: Exercise induced asthma Other Gastrointestinal History: Bowel obstruction following Genitourinary History: Reports: Renal Calculus, STD, UTI, Recurrent, Other (See Below) Other Genitourinary History: reports vaginal bleeding x40 days 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, 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, Other (See Below) Other OB/BYN History: endometrioma Other Musculoskeletal History: L-4 and L-5 disk disease Neurological History: Reports: CVA, Vertigo Other Neuro History: Stroke in 2007 Psychiatric History: Reports: Anxiety, Depression Endocrine/Metabolic History: Reports: Obesity/BMI 30+ Oncologic (Cancer) History: Reports: Cervix - Past Surgical History HEENT Surgical History: Reports: Oral Surgery Social & Family History - Family History Family Medical History: Noncontributory - Tobacco Use Smoking Status *Q: Current Every Day Smoker Years of Tobacco use: 8 Packs/Tins Daily: 0.2 Used Tobacco, but Quit: No Second Hand Smoke Exposure: No - Caffeine Use Caffeine Use: Reports: None Other Caffeine Use: a cup of coffee or soda "once in a great while." - Recreational Drug Use Recreational Drug Use: Yes Drug Use in Last 12 Months: Yes Recreational Drug Type: Reports: Marijuana/Hashish Recreational Drug Use Frequency: Daily - Living Situation & Occupation Living situation: Reports: , with Spouse, with Family (3 kids) Occupation: Unemployed ED ROS GENERAL - Review of Systems Review Of Systems: See Below Constitutional: Reports: No Symptoms HEENT: Reports: No Symptoms Respiratory: Reports: No Symptoms Cardiovascular: Reports: No Symptoms Endocrine: Reports: No Symptoms GI/Abdominal: Reports: Abdominal Pain, Nausea, Vomiting : Reports: No Symptoms Musculoskeletal: Reports: No Symptoms ED EXAM, GI/ABD - Physical Exam Exam: See Below Exam Limited By: No Limitations General Appearance: Alert, No Apparent Distress Ears: Normal External Exam Nose: Normal Inspection Head: Atraumatic, Normocephalic Neck: Normal Inspection Respiratory/Chest: No Respiratory Distress, Lungs Clear, Normal Breath Sounds Cardiovascular: Regular Rate, Rhythm, No Edema, No Murmur GI/Abdominal Exam: Soft, No Organomegaly, No Mass, Tender (Moderate generalized tenderness) Course - Vital Signs Last Recorded V/S: Last Vital Signs Temp 98.6 F 02/22/18 10:19 Pulse 90 02/22/18 10:19 Resp 18 02/22/18 10:19 BP 124/84 02/22/18 10:19 Pulse Ox 100 02/22/18 10:19 - Orders/Labs/Meds Orders: Active Orders 24 hr Category Date Time Status Peripheral IV Care [RC] . DIRECTED Care 02/22/18 10:42 Active UA W/MICROSCOPIC [URIN] Stat Lab 02/22/18 11:45 Ordered Sodium Chloride 0.9% [Saline Flush] Med 02/22/18 10:42 Active 10 ml FLUSH ASDIRECTED PRN ED Antiemetic Medication Reflex [OM.PC] Stat Oth 02/22/18 10:42 Ordered Peripheral IV Insertion Adult [OM.PC] Stat Oth 02/22/18 10:42 Ordered Medication Orders Sodium Chloride (Saline Flush) 10 ml FLUSH ASDIRECTED PRN PRN Reason: Keep Vein Open Last Admin: 02/22/18 10:57 Dose: 10 ml Labs: Laboratory Tests 02/22/18 02/22/18 02/22/18 Range/Units 10:35 10:35 10:35 WBC 7.91 (3.98-10.04) K/mm3 RBC 4.12 (3.98-5.22) M/mm3 Hgb 9.8 L (11.2-15.7) gm/L Hct 32.9 L (34.1-44.9) % MCV 79.9 (79.4-94.8) fl MCH 23.8 L (25.6-32.2) pg MCHC 29.8 L (32.2-35.5) g/dl RDW Std Deviation 49.0 H (36.4-46.3) fL Plt Count 429 H (182-369) K/mm3 MPV 8.8 L (9.4-12.3) fl Neut % (Auto) 59.9 (34.0-71.1) % Lymph % (Auto) 27.2 (19.3-51.7) % [place] % (Auto) 7.1 (4.7-12.5) % Eos % (Auto) 5.1 (0.7-5.8) Baso % (Auto) 0.6 (0.1-1.2) % Neut # (Auto) 4.74 (1.56-6.13) K/mm3 Lymph # (Auto) 2.15 (1.18-3.74) K/mm3 [place] # (Auto) 0.56 H (0.24-0.36) K/mm3 Eos # (Auto) 0.40 H (0.04-0.36) K/mm3 Baso # (Auto) 0.05 (0.01-0.08) K/mm3 Manual Slide Review Abnormal smear Sodium 137 (136-145) mEq/L Potassium 4.1 (3.5-5.1) mEq/L Chloride 104 (98-107) mEq/L Carbon Dioxide 26 (21-32) mEq/L Anion Gap 11.1 (5-15) BUN 17 (7-18) mg/dL Creatinine 1.1 H (0.55-1.02) mg/dL Est Cr Clr Drug Dosing 69.37 mL/min Estimated GFR (MDRD) 58 (>60) mL/min BUN/Creatinine Ratio 15.5 (14-18) Glucose 88 (74-106) mg/dL Calcium 9.0 (8.5-10.1) mg/dL Total Bilirubin 0.2 (0.2-1.0) mg/dL AST 16 (15-37) U/L ALT 14 (14-59) U/L Alkaline Phosphatase 46 (46-116) U/L Total Protein 7.2 (6.4-8.2) g/dl Albumin 3.4 (3.4-5.0) g/dl Globulin 3.8 gm/dL Albumin/Globulin Ratio 0.9 L (1-2) Lipase 131 (73-393) U/L HCG, Qual Negative (NEGATIVE) Urine Color (Yellow) Urine Appearance (Clear) Urine pH (5.0-8.0) Ur Specific [place] (1.005-1.030) Urine Protein (Negative) Urine Glucose (UA) (Negative) Urine Ketones (Negative) Urine Occult Blood (Negative) Urine Nitrite (Negative) Urine Bilirubin (Negative) Urine Urobilinogen (0.2-1.0) Ur Leukocyte Esterase (Negative) Urine RBC (0-5) /hpf Urine WBC (0-5) /hpf Ur Epithelial Cells (0-5) /hpf Urine Bacteria (FEW) /hpf Urine Mucus (FEW) /hpf 02/22/18 Range/Units 11:45 WBC (3.98-10.04) K/mm3 RBC (3.98-5.22) M/mm3 Hgb (11.2-15.7) gm/L Hct (34.1-44.9) % MCV (79.4-94.8) fl MCH (25.6-32.2) pg MCHC (32.2-35.5) g/dl RDW Std Deviation (36.4-46.3) fL Plt Count (182-369) K/mm3 MPV (9.4-12.3) fl Neut % (Auto) (34.0-71.1) % Lymph % (Auto) (19.3-51.7) % [place] % (Auto) (4.7-12.5) % Eos % (Auto) (0.7-5.8) Baso % (Auto) (0.1-1.2) % Neut # (Auto) (1.56-6.13) K/mm3 Lymph # (Auto) (1.18-3.74) K/mm3 [place] # (Auto) (0.24-0.36) K/mm3 Eos # (Auto) (0.04-0.36) K/mm3 Baso # (Auto) (0.01-0.08) K/mm3 Manual Slide Review Sodium (136-145) mEq/L Potassium (3.5-5.1) mEq/L Chloride (98-107) mEq/L Carbon Dioxide (21-32) mEq/L Anion Gap (5-15) BUN (7-18) mg/dL Creatinine (0.55-1.02) mg/dL Est Cr Clr Drug Dosing mL/min Estimated GFR (MDRD) (>60) mL/min BUN/Creatinine Ratio (14-18) Glucose (74-106) mg/dL Calcium (8.5-10.1) mg/dL Total Bilirubin (0.2-1.0) mg/dL AST (15-37) U/L ALT (14-59) U/L Alkaline Phosphatase (46-116) U/L Total Protein (6.4-8.2) g/dl Albumin (3.4-5.0) g/dl Globulin gm/dL Albumin/Globulin Ratio (1-2) Lipase (73-393) U/L HCG, Qual (NEGATIVE) Urine Color Yellow (Yellow) Urine Appearance Clear (Clear) Urine pH 6.5 (5.0-8.0) Ur Specific [place] 1.020 (1.005-1.030) Urine Protein Negative (Negative) Urine Glucose (UA) Negative (Negative) Urine Ketones Negative (Negative) Urine Occult Blood Negative (Negative) Urine Nitrite Negative (Negative) Urine Bilirubin Negative (Negative) Urine Urobilinogen 0.2 (0.2-1.0) Ur Leukocyte Esterase Trace H (Negative) Urine RBC 0-5 (0-5) /hpf Urine WBC 0-5 (0-5) /hpf Ur Epithelial Cells 0-5 (0-5) /hpf Urine Bacteria Not seen (FEW) /hpf Urine Mucus Not seen (FEW) /hpf Meds: Medications Generic Name Dose Route Start Last Admin Trade Name Freq PRN Reason Stop Dose Admin Sodium Chloride 10 ml 02/22/18 10:42 02/22/18 10:57 Saline Flush FLUSH 10 ml ASDIRECTED PRN Administration Keep Vein Open Discontinued Medications Generic Name Dose Route Start Last Admin Trade Name Freq PRN Reason Stop Dose Admin Fentanyl 100 mcg 02/22/18 11:35 02/22/18 11:41 Sublimaze IVPUSH 02/22/18 11:36 100 mcg ONETIME ONE Administration Hydromorphone HCl 1 mg 02/22/18 10:43 02/22/18 10:54 Dilaudid IVPUSH 02/22/18 10:44 1 mg ONETIME ONE Administration Sodium Chloride 1,000 mls @ 1,000 mls/hr 02/22/18 10:42 02/22/18 10:53 Normal Saline IV 02/22/18 11:41 1,000 mls/hr .BOLUS STA Administration Promethazine HCl 25 mg 02/22/18 10:42 02/22/18 10:52 Phenergan IM 02/22/18 10:43 25 mg ONETIME ONE Administration - Re-Assessments/Exams Free Text/Narrative Re-Assessment/Exam: 02/22/18 12:09 I ordered an IV NS 1L bolus, phenergan 25mg IM, dilaudid 1mg IV, labs and UA. Her Hgb is on the low side at 9.8. That has been trending down. She does have some vaginal bleeding but that is better. She still had pain so I ordered some fentanyl 100mcg IV. She feels better after that. I will discharge her home. Departure - Departure Time of Disposition: 12:15 Disposition: Home, Self-Care 01 Condition: Good Clinical Impression: Right lower quadrant abdominal pain Nausea with vomiting Qualifiers: Vomiting type: unspecified Vomiting Intractability: non-intractable Qualified Code(s): R11.2 - Nausea with vomiting, unspecified - Discharge Information Prescriptions: oxyCODONE HCl/Acetaminophen [Percocet 5-325 mg Tablet] 1 - 2 each PO Q6HR PRN # 20 tablet PRN Reason: Pain Promethazine [Phenergan] 25 mg PO Q6H PRN #30 tab PRN Reason: Nausea/Vomiting Referrals: Jassi Pleitez MD [Primary Care Provider] - 1 Week Additional Instructions: Take your medication as prescribed. Drink plenty of fluids. Please return if you are worse. - My Orders Last 24 Hours: My Active Orders 02/22/18 10:42 Peripheral IV Care [RC] . DIRECTED Sodium Chloride 0.9% [Saline Flush] 10 ml FLUSH ASDIRECTED PRN ED Antiemetic Medication Reflex [OM.PC] Stat Peripheral IV Insertion Adult [OM.PC] Stat 02/22/18 11:45 UA W/MICROSCOPIC [URIN] Stat - Assessment/Plan Last 24 Hours: My Active Orders 02/22/18 10:42 Peripheral IV Care [RC] . DIRECTED Sodium Chloride 0.9% [Saline Flush] 10 ml FLUSH ASDIRECTED PRN ED Antiemetic Medication Reflex [OM.PC] Stat Peripheral IV Insertion Adult [OM.PC] Stat 02/22/18 11:45 UA W/MICROSCOPIC [URIN] Stat
== END 2018-02-22 12:25 | disposition home or self-care (01) ==
LOC: JD.ED 10:08
DX: R10.31 Right lower quadrant pain (principal); R11.2 Nausea with vomiting, unspecified; F17.210 Nicotine dependence, cigarettes, uncomplicated; Z88.1 Allergy status to other antibiotic agents; Z88.0 Allergy status to penicillin; Z79.899 Other long term (current) drug therapy
CPT/HCPCS: 36415; 80053; 81001; 83690; 84703; 85025; 96361; 96372; 96374; 96375; 99284; J1170; J2550; J3010; J7040; J7050

== ENCOUNTER 2018-02-25 13:28 | Emergency (ER) | payer MEDICAID ==
[2018-02-25 13:38] VITALS: BP 132/87
[2018-02-25] MEDS ORDERED: Promethazine 25 MG in Sodium Chloride 0.9% 50 ML IV ONE (13:47)
[2018-02-25] MEDS ORDERED: HYDROmorphone 0.5 MG/0.5 ML SYRINGE IVPUSH ONE (13:48)
--- NOTE | 2018-02-25 13:59 | EDM.PDOC ---
ED HPI GENERAL MEDICAL PROBLEM - General Chief Complaint: Abdominal Pain Stated Complaint: ABDOMINAL PAIN/VOMITING Time Seen by Provider: 02/25/18 13:49 Source of Information: Reports: Patient History Limitations: Reports: No Limitations - History of Present Illness INITIAL COMMENTS - FREE TEXT/NARRATIVE: Nora is a 32yo female patient presents ambulatory to ED with worsening abdominal pain after having preoperative labs drawn this morning. She is scheduled for total hysterectomy with Dr. Pleitez the following day. She has chronic endometriosis with abdominal/pelvic pain daily. This has been ongoing for years, worsening. She has been to the ED numerous times over the past several weeks with similar complaints. She states pain is unchanged in character from her usual pain just "worse" this morning. She is vomiting this morning and unable to keep any food or liquid down, she feels "dehydrated". No diarrhea. No f/c/s. No cough/wheezing, ORTIZ or other new symptoms. Onset: Other (chronic- worse this morning) Duration: Chronic Location: Reports: Abdomen, Pelvis Abdominal Pain Score (Numeric/FACES): 7 - Related Data Allergies Allergy/AdvReac Type Severity Reaction Status Date / Time metronidazole [From Flagyl] Allergy Airway Verified 03/08/18 09:02 Tightness Penicillins Allergy Anaphylactic Verified 03/08/18 09:02 Shock metoclopramide [From Reglan] AdvReac Anxiety Verified 03/08/18 09:02 Home Meds: Home Meds Ondansetron [Zofran ODT] 4 mg PO Q6H PRN #15 tab.dis 02/15/18 [Rx] Promethazine [Phenergan] 25 mg PO Q6H PRN #30 tab 02/22/18 [Rx] Past Medical History HEENT History: Reports: Impaired Vision Respiratory History: Reports: Asthma Other Respiratory History: Exercise induced asthma Other Gastrointestinal History: Bowel obstruction following Genitourinary History: Reports: Renal Calculus, STD, UTI, Recurrent, Other (See Below) Other Genitourinary History: reports vaginal bleeding x40 days 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, 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, Other (See Below) Other OB/BYN History: endometrioma Other Musculoskeletal History: L-4 and L-5 disk disease Neurological History: Reports: CVA, Vertigo Other Neuro History: Stroke in 2007 Psychiatric History: Reports: Anxiety, Depression Endocrine/Metabolic History: Reports: Obesity/BMI 30+ Oncologic (Cancer) History: Reports: Cervix - Past Surgical History Other Female Surgeries/Procedures: STD Social & Family History - Family History Family Medical History: Noncontributory - Tobacco Use Smoking Status *Q: Current Every Day Smoker Years of Tobacco use: 8 Packs/Tins Daily: 0.5 Used Tobacco, but Quit: No Second Hand Smoke Exposure: No - Caffeine Use Caffeine Use: Reports: None Other Caffeine Use: a cup of coffee or soda "once in a great while." - Recreational Drug Use Recreational Drug Use: Yes Drug Use in Last 12 Months: Yes Recreational Drug Type: Reports: Marijuana/Hashish Recreational Drug Use Frequency: Not Used In Over 6 Months - Living Situation & Occupation Living situation: Reports: , with Spouse, with Family (3 kids) Occupation: Unemployed ED ROS GENERAL - Review of Systems Review Of Systems: See Below Constitutional: Reports: No Symptoms HEENT: Reports: No Symptoms Respiratory: Reports: No Symptoms GI/Abdominal: Reports: Abdominal Pain, Nausea, Vomiting. Denies: Black Stool, Bloody Stool, Constipation, Diarrhea, Difficulty Swallowing : Reports: Dysuria, Irregular Menses, Pain. Denies: Frequency, Hematuria Musculoskeletal: Reports: Back Pain Skin: Reports: No Symptoms Neurological: Reports: No Symptoms Psychiatric: Reports: Anxiety ED EXAM, GI/ABD - Physical Exam Exam: See Below Exam Limited By: No Limitations General Appearance: Alert, WD/WN, No Apparent Distress Eyes: Bilateral: EOMI Ears: Normal External Exam, Hearing Grossly Normal Nose: Normal Inspection Throat/Mouth: Normal Inspection, No Airway Compromise Head: Atraumatic, Normocephalic Neck: Normal Inspection, Supple Respiratory/Chest: No Respiratory Distress Cardiovascular: Normal Peripheral Pulses, Regular Rate, Rhythm, No Edema GI/Abdominal Exam: Normal Bowel Sounds, Soft, No Distention, Tender (diffusely tender) (Female) Exam: Deferred Rectal (Female) Exam: Deferred Back Exam: Normal Inspection Extremities: Normal Inspection Psychiatric: Normal Affect, Normal Mood, Anxious (decreases during her ER stay) Skin Exam: Warm, Dry, Intact Course - Vital Signs Last Recorded V/S: Last Vital Signs Temp 98.8 F 02/25/18 13:35 Pulse 81 02/25/18 13:35 Resp 16 02/25/18 13:35 BP 132/87 02/25/18 13:35 Pulse Ox 100 02/25/18 13:35 - Orders/Labs/Meds Meds: Medications Discontinued Medications Generic Name Dose Route Start Last Admin Trade Name Trey PRN Reason Stop Dose Admin Hydromorphone HCl 1 mg 02/25/18 13:48 Dilaudid IVPUSH 02/25/18 13:49 ONETIME ONE Hydromorphone HCl Confirm 02/25/18 15:18 Dilaudid Administered 02/25/18 15:19 Dose 1 mg .ROUTE .STK-MED ONE Promethazine HCl 25 mg/ Sodium 51 mls @ 100 mls/hr 02/25/18 13:47 Chloride IV 02/25/18 14:17 ONETIME ONE Sodium Chloride Confirm 02/25/18 14:06 Normal Saline Administered 02/25/18 14:07 Dose 1,000 mls @ as directed .ROUTE .STK-MED ONE - Re-Assessments/Exams Free Text/Narrative Re-Assessment/Exam: 03/10/18 12:43 Patient rec'd usual doses of antiemetic and narcotic medications that have worked for her pain over the last 2 weeks. Pain decreased. Nausea improved to resolved to the point where she was hungry, eating and drinking. She will be discharged home with instructions to push fluids, zofran PRN if nausea returns. Report for scheduled surgery in the morning as planned with Dr. Pleitez. Departure - Departure Time of Disposition: 16:00 Disposition: Home, Self-Care 01 Condition: Good Clinical Impression: Pelvic pain Abdominal pain Qualifiers: Abdominal location: generalized Qualified Code(s): R10.84 - Generalized abdominal pain - Discharge Information Instructions: Pelvic Pain, Female, [id number] Referrals: Jassi Pleitez MD [Primary Care Provider] - Forms: ED Department Discharge Additional Instructions: see written dc instructions for further details
[2018-02-25] MEDS ORDERED: Sodium Chloride 0.9% 1,000 ML ONE (14:06)
[2018-02-25] MEDS ORDERED: HYDROmorphone 0.5 MG/0.5 ML SYRINGE ONE (15:18)
== END 2018-02-25 15:50 | disposition home or self-care (01) ==
LOC: JD.ED 13:28
DX: R10.2 Pelvic and perineal pain (principal); R10.84 Generalized abdominal pain; F17.210 Nicotine dependence, cigarettes, uncomplicated; Z88.1 Allergy status to other antibiotic agents; Z88.0 Allergy status to penicillin; Z88.8 Allergy status to other drugs, medicaments and biological substances
CPT/HCPCS: 96361; 96365; 96375; 96376; 99284; J1170; J2550; J7040; J7050

== ENCOUNTER 2018-02-26 07:45 | Day surgery (SDC) | payer MEDICAID, OTHER, SELFPAY ==
[~2018-02-26 07:45] MED LIST: Dexamethasone 4 MG/ML SDV ONE; HYDROmorphone 0.5 MG/0.5 ML Syringe ONE; Ketorolac 30 MG/ML SDV ONE; Lactated Ringers 1,000 ML IV SCH; Lidocaine 1%/Sod Bicarbonate in NS 8.4% 1 ML Syringe IDERM PRN; Midazolam 1 MG/ML 2 ML SDV ONE; Ondansetron 4 MG/2 ML SDV ONE; Propofol 200 MG/20 ML SDV ONE; Rocuronium 50 MG/5 ML Vial ONE; Sodium Chloride 0.9% 10 ML Syringe FLUSH PRN; ceFAZolin 1 GM Vial ONE; fentaNYL 250 MCG/5 ML SDV ONE
[2018-02-26] MEDS ORDERED: Bupivacaine 0.5% 30 ML SDV ONE (08:06)
[2018-02-26] MEDS ORDERED: Lidocaine 1% with EPINEPHrine 1:100,000 20 ML MDV ONE (08:06)
[2018-02-26] MEDS ORDERED: Sodium Chloride 0.9% 50 ML SDV ONE (08:06)
--- NOTE | 2018-02-26 08:29 | PCM.PREANE ---
Preanesthetic Assessment - Anesthesia/Transfusion/Family Hx Anesthesia History: Prior Anesthesia Without Reaction Type of Anesthesia Reaction: Excessive Nausea/Vomiting Family History of Anesthesia Reaction: No Transfusion History: No Prior Transfusion(s) - Review of Systems General: Other (anemic) Pulmonary: Other (current smoker and marijuana user) Gastrointestinal: Nausea Neurological: Other (states has a stroke with previous , no residual effects, surgeries since then with no adverse reactions) - Physical Assessment NPO Status Date: 02/25/18 NPO Status Time: 23:30 Pulse: 89 O2 Sat by Pulse Oximetry: 98 Respiratory Rate: 22 Blood Pressure: 128/83 Temperature: 36.7 C Weight: 81 kg ASA Class: 2 Mental Status: Alert & Oriented x3 Airway Class: Mallampati = 2 Dentition: Reports: Normal Dentition Thyro-Mental Finger Breadths: 3 Mouth Opening Finger Breadths: 3 ROM/Head Extension: Full Lungs: Clear to Auscultation, Normal Respiratory Effort Cardiovascular: Regular Rate, Regular Rhythm - Allergies Allergies/Adverse Reactions: Allergies Allergy/AdvReac Type Severity Reaction Status Date / Time metronidazole [From Flagyl] Allergy Airway Verified 02/25/18 13:38 Tightness Penicillins Allergy Anaphylactic Verified 02/25/18 13:38 Shock metoclopramide [From Reglan] AdvReac Anxiety Verified 02/25/18 13:38 - Blood Blood Available: No Product(s) Available: None - Anesthesia Plan Pre-Op Medication Ordered: None - Acknowledgements Anesthesia Type Planned: General Anesthesia Pt an Appropriate Candidate for the Planned Anesthesia: Yes Alternatives and Risks of Anesthesia Discussed w Pt/Guardian: Yes Pt/Guardian Understands and Agrees with Anesthesia Plan: Yes PreAnesthesia Questionnaire HEENT History: Reports: Impaired Vision Cardiovascular History: Reports: None Respiratory History: Reports: Asthma Other Respiratory History: Exercise induced asthma Other Gastrointestinal History: Bowel obstruction following Genitourinary History: Reports: Renal Calculus, STD, UTI, Recurrent, Other (See Below) Other Genitourinary History: reports vaginal bleeding x40 days 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: 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, 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, Other (See Below) Other OB/BYN History: endometrioma Other Musculoskeletal History: L-4 and L-5 disk disease Neurological History: Reports: CVA, Vertigo Other Neuro History: Stroke in 2007 Psychiatric History: Reports: Anxiety, Depression Endocrine/Metabolic History: Reports: Obesity/BMI 30+ Hematologic History: Reports: None Immunologic History: Reports: None Oncologic (Cancer) History: Reports: Cervix Dermatologic History: Reports: None - Past Surgical History Other Female Surgeries/Procedures: STD - SUBSTANCE USE Smoking Status *Q: Current Every Day Smoker Tobacco Use Within Last Twelve Months: Cigarettes Second Hand Smoke Exposure: No Recreational Drug Use History: Yes Recreational Drug Type: Reports: Marijuana/Hashish - HOME MEDS Home Medications: Home Meds Iron 65 mg PO DAILY 01/18/18 [History] Ondansetron [Zofran ODT] 4 mg PO Q6H PRN #15 tab.dis 02/15/18 [Rx] Promethazine [Phenergan] 25 mg PO Q6H PRN #30 tab 02/22/18 [Rx] oxyCODONE HCl/Acetaminophen [Percocet 5-325 mg Tablet] 1 - 2 each PO Q6HR PRN # 20 tablet 02/22/18 [Rx] - CURRENT (IN HOUSE) MEDS Current Meds: Current Medications Lactated Ringer's (Ringers, Lactated) 1,000 mls @ 125 mls/hr IV ASDIRECTED YAMIL Stop: 02/26/18 23:00 Lidocaine/Sodium Bicarbonate (Buffered Lidocaine 1% In Ns 8.4%) 0.25 ml IDERM ONETIME PRN PRN Reason: Prior to IV Start Stop: 02/26/18 18:00 Sodium Chloride (Saline Flush) 10 ml FLUSH ASDIRECTED PRN PRN Reason: Keep Vein Open Stop: 02/26/18 18:00 Discontinued Medications Bupivacaine HCl (Marcaine 0.5%) Confirm Administered Dose 30 ml .ROUTE .STK-MED ONE Stop: 02/26/18 08:07 Cefazolin Sodium (Ancef) Confirm Administered Dose 2 gm .ROUTE .STK-MED ONE Stop: 02/26/18 07:06 Dexamethasone (Dexamethasone) Confirm Administered Dose 4 mg .ROUTE .STK-MED ONE Stop: 02/26/18 07:06 Fentanyl (Sublimaze) Confirm Administered Dose 250 mcg .ROUTE .STK-MED ONE Stop: 02/26/18 07:06 Hydromorphone HCl (Dilaudid) Confirm Administered Dose 0.5 mg .ROUTE .STK-MED ONE Stop: 02/26/18 07:06 Ketorolac Tromethamine (Toradol) Confirm Administered Dose 30 mg .ROUTE .STK- MED ONE Stop: 02/26/18 07:06 Lidocaine/Epinephrine (Xylocaine 1% With Epinephrine 1:100,000) Confirm Administered Dose 20 ml .ROUTE .STK-MED ONE Stop: 02/26/18 08:07 Midazolam HCl (Versed 1 Mg/Ml) Confirm Administered Dose 2 mg .ROUTE .STQuartix-MED ONE Stop: 02/26/18 07:06 Ondansetron HCl (Zofran) Confirm Administered Dose 4 mg .ROUTE .STQuartix-MED ONE Stop: 02/26/18 07:06 Propofol (Diprivan 20 Ml) Confirm Administered Dose 200 mg .ROUTE .STQuartix-MED ONE Stop: 02/26/18 07:06 Rocuronium [place] (Zemuron) Confirm Administered Dose 50 mg .ROUTE .STQuartix-MED ONE Stop: 02/26/18 07:06 Sodium Chloride (Normal Saline) Confirm Administered Dose 50 ml .ROUTE .STQuartix-MED ONE Stop: 02/26/18 08:07
[2018-02-26] MEDS ORDERED: Scopolamine 1.5 MG Transdermal Patch TRDERM ONE (08:41)
[2018-02-26] MEDS ORDERED: Clindamycin Phosphate 900 MG in Dextrose 5% in Water 100 ML IV ONE ×2 (08:45)
[2018-02-26] MEDS ORDERED: Gentamicin 400 MG in Dextrose 5% in Water 100 ML IV ONE ×2 (08:45)
[2018-02-26] MEDS ORDERED: HYDROmorphone 0.5 MG/0.5 ML Syringe ONE ×2 (08:47→10:53)
[2018-02-26] MEDS ORDERED: Ketamine 500 mg/10 ML MDV ONE (08:47)
[2018-02-26] MEDS ORDERED: Lactated Ringers 1,000 ML ONE ×2 (11:04)
--- NOTE | 2018-02-26 11:30 | PCM.OPNOTE ---
- General Post-Op/Procedure Note Date of Surgery/Procedure: 02/26/18 Operative Procedure(s): Laparoscopic-assisted vaginal hysterectomy with bilateral salpingectomy and lysis of adhesions Findings: Overall normal-appearing uterus, bilateral fallopian tubes and ovaries. Fallopian tubes had Filshie clips present bilaterally at the isthmic portion of the fallopian tube. Thin, small filmy adhesions from omentum to anterior abdominal wall in low pelvis that were taken down using Harmonic scalpel. Overall normal-appearing liver, gallbladder and intestines. Unable to visualize appendix due to the amount of scarring present. Pre Op Diagnosis: Chronic pelvic pain in a female, endometriosis, abnormal uterine bleeding and history of abnormal Pap smears Post-Op Diagnosis: Same Anesthesia Technique: General ET Tube Primary Surgeon: Jassi Pleitez Anesthesia Provider: Belen Marc [employer] Route Aide: Hayden Khan (social science research assistant) [employer] Route Aide: Zacarias Martin (Second assist) Reason [employer] Route Aide Was Necessary: Reduction of patient morbidity mortality, patient safety, laparoscopic surgical skills Role of Telegraph [employer] Route Aide: Assist with laparoscopy and these portions of the case as well as retraction for improved visualization of surgery Fluid Replacement, Intraop: 2,000 Output, Urine Amount: 450 EBL in mLs: 250 Complications: None Condition: Good Free Text/Narrative:: The patient was seen in the preoperative holding area and risks, benefits, indications, and alternatives of the procedure were reviewed with the patient and she desired to proceed with a laparoscopic assisted vaginal hysterectomy, bilateral salpingectomy, possible ovarian cystectomy, possible total abdominal hysterectomy. Consents were reviewed. The patient was taken back to the OR and given general anesthesia with an endotracheal tube which was placed without difficulty. She was placed in dorsal lithotomy position using Yellofin stirrups. She was prepped and draped in normal sterile fashion. A Acosta catheter was placed without difficulty. Attention was then turned to her left upper quadrant of her abdomen. The rib cage was then palpated for the seventh rib along the anterior axillary line. The inferior edge of the skin overlying the seventh rib was injected with 0.5% Marcaine with epinephrine. A 5 mm stab incision was made with a scalpel and a Veress needle was then inserted through the incision and passed through the rib cage above the seventh rib. The gas was turned on, with an opening pressure of 7 mmHg. Pneumoperitoneum was continued until 15 mmHg pressure. A 5 mm trocar was then inserted under direct visualization through this incision along the inferior portion of the seventh rib. A global view of the abdomen was taken and noted to be overall free of adhesions and it was felt that the case would be able to be accomplished laparoscopically. The umbilicus and bilateral lower abdomen were free of adhesions. The umbilicus was injected with 0.5% Marcaine with epinephrine infraumbilically. A 5 mm incision was made with the scalpel. A 5 mm trocar was inserted under direct visualization without difficulty. Attention was then turned to the suprapubic area and the skin was injected with local anesthetic. A skin incision was made using a scalpel. A 5 mm trocar was then inserted under direct visualization with laparoscope. Attention was then turned to the patient's left lower quadrant where an avascular space approximately snf between the ASIS and the umbilicus was identified. Local anesthetic was injected and a 5 mm incision was made with a scalpel. A 5 mm trocar was then inserted under direct visualization of the laparoscope. Attention was then turned to the right lower quadrant, where again an avascular portion of the abdominal wall was identified approximately snf between the ASIS and the umbilicus. Local anesthetic was injected and a scalpel was used to make a 5 mm incision. A 5 mm trocar was inserted under direct visualization with the laparoscope. Attention was then turned to the pelvis where there was noted to be some thin, filmy adhesions from the omentum to the anterior pelvic wall. These were taken down using Harmonic scalpel without difficulty. The uterus was elevated using atraumatic graspers and noted to have a normal appearance. The bilateral fallopian tubes were normal in appearance except for bilateral Filshie clips present at the isthmic portion of the fallopian tubes. The bilateral ovaries were normal in appearance. The bowel was overall normal in appearance. The atraumatic grasper was then removed from the right lower trocar and a Harmonic scalpel device was introduced and was used to transect the right fallopian tube and round ligament. The broad ligament connecting the right fallopian tube was transected from the ovary and underlying tissue. The right round ligament was then transected using the Harmonic device. The utero- ovarian ligament was then transected using the Harmonic device. The right side of the uterus and broad ligament were then transected using the Harmonic device until the level of the uterovesical peritoneal reflection. This was repeated on the patient's left side. The fallopian tube was transected from the underlying tissue using the Harmonic device. The utero-ovarian ligament was then transected using Harmonic device. Round ligament was transected using Harmonic scalpel and the broad ligament was transected to the level of the uterovesical peritoneal reflection. The pelvis was then inspected for hemostasis at this time and hemostasis was noted. All instruments were removed from the abdomen. Attention was then turned to the patient's peritoneum where a weighted speculum was placed into the vagina and a Hopewell retractor was used to visualize the cervix. The cervix was grasped with a double-tooth tenaculum. The cervical reflection point was then injected circumferentially with 0.5% lidocaine with epinephrine. The cervix was then circumferentially incised with a scalpel. The bladder was then dissected off the pubovesical cervical fascia anteriorly with Metzenbaum scissors. The same procedure was performed posteriorly and the posterior cul-de-sac was entered sharply without difficulty using Metzenbaum scissors. At this point, a Iqra clamp was placed over the uterosacral ligaments on the patient's left side. These were transected and suture ligated with 0 Monocryl. This was repeated on the patient's right side. Hemostasis was assured. The cardinal ligaments were then clamped on both sides, transected and suture ligated with 0 Monocryl. The anterior cul-de-sac was able to be entered using blunt entry at this time. The uterine arteries and the remainder of the broad ligament were then serially clamped with Iqra clamps, transected and suture ligated with 0 Monocryl on both sides. Excellent hemostasis was noted. The cervix and uterus was able to be delivered at this time. The posterior vaginal cuff was closed with running locked sutures of 0 Monocryl. The vaginal cuff was then closed in a vertical fashion using interrupted [id number] sutures with 0 Monocryl suture. All instruments were removed from the vagina. Attention was then turned to the abdomen where a laparoscope was inserted and was used to check for hemostasis. Hemostasis was noted at this time. The case was complete at this time. The gas was then evacuated from the peritoneum and trocars removed. These were closed using 4-0 Monocryl suture and Dermabond. The case was completed at this time and all instruments were removed. The Acosta catheter was discontinued at this time. The patient was awoken from general anesthesia and taken to the PACU for recovery in stable condition. She will be discharged to home once she is able to meet all postoperative milestones including tolerating small amount of oral intake and liquids, ambulate without difficulty, her pain controlled with oral medications and able to void without difficulty. She will follow-up in the clinic in 2 weeks or earlier as needed. Sponge, lap, needle, and instrument counts were correct x 2.
[2018-02-26] MEDS ORDERED: Haloperidol Lactate 5 MG/ML SDV IVPUSH PRN (11:38)
[2018-02-26] MEDS ORDERED: Ondansetron 4 MG/2 ML SDV IVPUSH PRN ×2 (11:38→14:16)
--- NOTE | 2018-02-26 11:38 | PCM.POSTAN ---
POST ANESTHESIA ASSESSMENT - MENTAL STATUS Mental Status: Alert, Oriented - VITAL SIGNS Pulse Rate: 99 SaO2: 100 Resp Rate: 18 Blood Pressure: 127/72 Temperature: 36.9 C - RESPIRATORY Respiratory Status: Respiratory Rate WNL, Airway Patent, O2 Saturation Stable, Supplemental Oxygen - CARDIOVASCULAR CV Status: Pulse Rate WNL, Blood Pressure Stable - GASTROINTESTINAL GI Status: No Symptoms - PAIN Pain Score: 0 - POST OP HYDRATION Hydration Status: Adequate & Stable
[2018-02-26] MEDS ORDERED: Midazolam 1 MG/ML 2 ML SDV IVPUSH PRN (11:51)
[2018-02-26] MEDS: fentaNYL 100 MCG/2 ML SDV IVPUSH PRN ×4 (11:52→12:44)
[2018-02-26] MEDS ORDERED: HYDROmorphone 0.5 MG/0.5 ML Syringe IVPUSH ONE ×3 (12:10→13:30)
[2018-02-26] MEDS ORDERED: fentaNYL 100 MCG/2 ML SDV IVPUSH PRN (12:28)
[2018-02-26] MEDS ORDERED: Acetaminophen/oxyCODONE 325-5 MG Tab PO PRN (12:56)
[2018-02-26] MEDS ORDERED: diphenhydrAMINE 50 MG/ML SDV IVPUSH ONE (13:30)
[2018-02-26] MEDS ORDERED: Promethazine 12.5 MG in Sodium Chloride 0.9% 50 ML IV PRN (14:15)
[2018-02-26 14:20] VITALS: BP 112/70
[2018-02-26] MEDS ORDERED: Ketorolac 30 MG/ML SDV IVPUSH SCH (14:30)
== END 2018-02-26 15:17 | disposition home or self-care (01) ==
LOC: JD.SDS 07:45
PROVIDERS: ATTEND Obstetrics & Gynecology
DX: N73.6 Female pelvic peritoneal adhesions (postinfective) (principal); N88.8 Other specified noninflammatory disorders of cervix uteri; N83.8 Other noninflammatory disorders of ovary, fallopian tube and broad ligament; N80.9 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, unspecified; G89.29 Other chronic pain; R10.2 Pelvic and perineal pain; F17.210 Nicotine dependence, cigarettes, uncomplicated; Z86.73 Personal history of transient ischemic attack (TIA), and cerebral infarction without residual deficits; J30.9 Allergic rhinitis, unspecified; Z88.1 Allergy status to other antibiotic agents; Z88.0 Allergy status to penicillin; Z88.8 Allergy status to other drugs, medicaments and biological substances; Z79.899 Other long term (current) drug therapy
CPT/HCPCS: 36415; 58552; 81025; 86850; 86900; 86901; A9270; J1100; J1170; J1200; J1580; J1630; J1885; J2250; J2405; J3010; J7060; J7120; 00944; 88307; J0690; J2704

== ENCOUNTER 2018-03-02 21:11 | Emergency (ER) | payer MEDICAID ==
[2018-03-02 21:24] VITALS: BP 147/90
[2018-03-02] MEDS ORDERED: LORazepam 2 MG/ML SDV IVPUSH ONE (22:05)
[2018-03-02] MEDS ORDERED: Sodium Chloride 0.9% 1,000 ML IV ONE (22:05)
[2018-03-02] MEDS ORDERED: Ondansetron 4 MG/2 ML SDV IVPUSH ONE (22:05)
--- NOTE | 2018-03-02 22:06 | EDM.PDOC ---
ED HPI GENERAL MEDICAL PROBLEM - General Chief Complaint: General Stated Complaint: POSS INCISION REOPENED Time Seen by Provider: 03/02/18 21:45 Source of Information: Reports: Patient, Old Records (SDS notes, recent ER notes ) History Limitations: Reports: No Limitations - History of Present Illness INITIAL COMMENTS - FREE TEXT/NARRATIVE: 32-year-old female present for evaluation and treatment of postsurgical complications. Patient had a laparoscopic hysterectomy with bilateral salpingostomy done on Sunday by Dr. Lake here at [facility]. She also had a cystectomy of the left ovary. Patient reports that she was doing well postop. She states yesterday she tripped over her son's backpack and felt that she tore the inner layer of her sutures. She is reporting a burning pain to the suprapubic area. Reports she had some vaginal bleeding 2 days postop this has since subsided. She is currently out of her Percocet and continues to have worsening pain. She is also complaining anxiety and is currently very anxious. She reports associated symptoms of nausea, chills and dysuria. No fevers or vomiting. She also reports a cough. Patient has not seen Dr. Pleitez; follow-up as of yet. She is scheduled to see him on Sunday. Abdomen Pain Score (Numeric/FACES): 6 - Related Data Allergies Allergy/AdvReac Type Severity Reaction Status Date / Time metronidazole [From Flagyl] Allergy Airway Verified 03/02/18 21:25 Tightness Penicillins Allergy Anaphylactic Verified 03/02/18 21:25 Shock metoclopramide [From Reglan] AdvReac Anxiety Verified 03/02/18 21:25 Home Meds: Home Meds Iron 65 mg PO DAILY 01/18/18 [History] Ondansetron [Zofran ODT] 4 mg PO Q6H PRN #15 tab.dis 02/15/18 [Rx] Promethazine [Phenergan] 25 mg PO Q6H PRN #30 tab 02/22/18 [Rx] Ibuprofen 600 mg PO Q6H PRN #60 tablet 02/26/18 [Rx] oxyCODONE HCl/Acetaminophen [Percocet 5-325 mg Tablet] 1 - 2 each PO Q6HR PRN # 30 tablet 02/26/18 [Rx] Past Medical History HEENT History: Reports: Impaired Vision Cardiovascular History: Reports: None Respiratory History: Reports: Asthma Other Respiratory History: Exercise induced asthma Gastrointestinal History: Reports: Other (See Below) Other Gastrointestinal History: Bowel obstruction following Genitourinary History: Reports: Renal Calculus, STD, UTI, Recurrent, Other (See Below) Other Genitourinary History: reports vaginal bleeding x40 days [employer] History: Reports: 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, Hyperemesis, Other (See Below) Other OB/BYN History: endometrioma Musculoskeletal History: Reports: Other (See Below) Other Musculoskeletal History: L-4 and L-5 disk disease Neurological History: Reports: CVA, Vertigo Other Neuro History: Stroke in 2007 Psychiatric History: Reports: Anxiety, Depression Endocrine/Metabolic History: Reports: Obesity/BMI 30+ Hematologic History: Reports: None Immunologic History: Reports: None Oncologic (Cancer) History: Reports: Cervix Dermatologic History: Reports: None - Past Surgical History Head Surgeries/Procedures: Reports: None Female Surgical History: Reports: Hysterectomy Other Female Surgeries/Procedures: STD Social & Family History - Family History Family Medical History: Noncontributory - Tobacco Use Smoking Status *Q: Current Every Day Smoker Years of Tobacco use: 8 Packs/Tins Daily: 0.2 Used Tobacco, but Quit: No - Caffeine Use Caffeine Use: Reports: Energy Drinks Other Caffeine Use: a cup of coffee or soda "once in a great while." - Recreational Drug Use Recreational Drug Use: Yes Drug Use in Last 12 Months: Yes Recreational Drug Type: Reports: Marijuana/Hashish Recreational Drug Use Frequency: Daily - Living Situation & Occupation Living situation: Reports: , with Spouse, with Family (3 kids) Occupation: Unemployed ED ROS GENERAL - Review of Systems Review Of Systems: See Below Constitutional: Reports: Chills. Denies: Fever Respiratory: Reports: Cough GI/Abdominal: Reports: Abdominal Pain (suprapubic pain), Nausea. Denies: Vomiting : Reports: Dysuria ED EXAM, GENERAL - Physical Exam Exam: See Below Exam Limited By: No Limitations General Appearance: Alert, WD/WN, Anxious, Mild Distress, Thin Respiratory/Chest: No Respiratory Distress, Lungs Clear, Normal Breath Sounds Cardiovascular: Normal Peripheral Pulses, Regular Rate, Rhythm, No Murmur GI/Abdominal: Normal Bowel Sounds, Soft, Non-Tender, Other (5 surgical sites for harper hys present over the abdomen; dermabond present on 4 of them, no opening wounds, no drainage or discharge, mild erythema present around one of the sites from dermabond contact ) Neurological: Alert, Oriented, Normal Cognition Psychiatric: Anxious, Tearful Skin Exam: Warm, Dry, Normal Color Course - Vital Signs Last Recorded V/S: Last Vital Signs Temp 37.3 C 03/02/18 21:22 Pulse 98 03/02/18 21:22 Resp 20 03/02/18 21:22 BP 147/90 H 03/02/18 21:22 Pulse Ox 100 03/02/18 21:22 - Orders/Labs/Meds Orders: Active Orders 24 hr Category Date Time Status Peripheral IV Care [RC] . DIRECTED Care 03/02/18 22:05 Active UA W/MICROSCOPIC [URIN] Stat Lab 03/02/18 22:10 Ordered Peripheral IV Insertion Adult [OM.PC] Routine Oth 03/02/18 22:04 Ordered Labs: Laboratory Tests 03/02/18 03/02/18 03/02/18 Range/Units 22:10 22:25 22:25 WBC 8.98 (3.98-10.04) K/mm3 RBC 4.08 (3.98-5.22) M/mm3 Hgb 9.8 L (11.2-15.7) gm/L Hct 32.7 L (34.1-44.9) % MCV 80.1 (79.4-94.8) fl MCH 24.0 L (25.6-32.2) pg MCHC 30.0 L (32.2-35.5) g/dl RDW Std Deviation 49.2 H (36.4-46.3) fL Plt Count 336 (182-369) K/mm3 MPV 9.3 L (9.4-12.3) fl Neut % (Auto) 62.0 (34.0-71.1) % Lymph % (Auto) 25.1 (19.3-51.7) % Stewart % (Auto) 8.1 (4.7-12.5) % Eos % (Auto) 4.2 (0.7-5.8) Baso % (Auto) 0.4 (0.1-1.2) % Neut # (Auto) 5.56 (1.56-6.13) K/mm3 Lymph # (Auto) 2.25 (1.18-3.74) K/mm3 Stewart # (Auto) 0.73 H (0.24-0.36) K/mm3 Eos # (Auto) 0.38 H (0.04-0.36) K/mm3 Baso # (Auto) 0.04 (0.01-0.08) K/mm3 Manual Slide Review Abnormal smear Sodium 138 (136-145) mEq/L Potassium 4.2 (3.5-5.1) mEq/L Chloride 106 (98-107) mEq/L Carbon Dioxide 23 (21-32) mEq/L Anion Gap 13.2 (5-15) BUN 17 (7-18) mg/dL Creatinine 1.1 H (0.55-1.02) mg/dL Est Cr Clr Drug Dosing 69.37 mL/min Estimated GFR (MDRD) 58 (>60) mL/min BUN/Creatinine Ratio 15.5 (14-18) Glucose 86 (74-106) mg/dL Calcium 9.2 (8.5-10.1) mg/dL Urine Color Yellow (Yellow) Urine Appearance Clear (Clear) Urine pH 7.0 (5.0-8.0) Ur Specific Coleman 1.025 (1.005-1.030) Urine Protein 1+ H (Negative) Urine Glucose (UA) Negative (Negative) Urine Ketones Negative (Negative) Urine Occult Blood Negative (Negative) Urine Nitrite Negative (Negative) Urine Bilirubin Negative (Negative) Urine Urobilinogen 0.2 (0.2-1.0) Ur Leukocyte Esterase Negative (Negative) Urine RBC Not seen (0-5) /hpf Urine WBC 0-5 (0-5) /hpf Ur Epithelial Cells 0-5 (0-5) /hpf Urine Bacteria Not seen (FEW) /hpf Urine Mucus Few (FEW) /hpf Meds: Medications Discontinued Medications Generic Name Dose Route Start Last Admin Trade Name Freq PRN Reason Stop Dose Admin Sodium Chloride 1,000 mls @ 999 mls/hr 03/02/18 22:05 03/02/18 23:09 Normal Saline IV 03/02/18 23:05 Not Given ONETIME ONE Lorazepam 1 mg 03/02/18 22:05 03/02/18 22:29 Ativan IVPUSH 03/02/18 22:06 1 mg ONETIME ONE Administration Ondansetron HCl 4 mg 03/02/18 22:05 03/02/18 22:29 Zofran IVPUSH 03/02/18 22:06 4 mg ONETIME ONE Administration Oxycodone/Acetaminophen 2 tab 03/02/18 23:03 03/02/18 23:09 Percocet 325-5 Mg PO 03/02/18 23:04 2 tab ONETIME ONE Administration Sodium Chloride 10 ml 03/02/18 22:05 03/02/18 22:30 Saline Flush FLUSH 10 ml ASDIRECTED PRN Administration Keep Vein Open - Re-Assessments/Exams Free Text/Narrative Re-Assessment/Exam: 03/02/18 22:39 Nursing staff informed me that they were able to start an IV, however, she immediately complained of pain afterwards. She did get her IV Ativan and Zofran. There is no need to reattempt IV. She can drink oral medications. 03/02/18 23:03 Checked on the patient. She is continues to be anxious. States this most likely due to being in the ER as possible make her nervous. She continues to complain of pain. Will give her 2 by mouth Percocet that time. At this time I feel she cans safely go home. I will give her 5 Percocet from [facility]. that should be enough to get her through to see Dr. Lake. Discharge instructions as documented. Departure - Departure Time of Disposition: 23:04 Disposition: Home, Self-Care 01 Condition: Fair Clinical Impression: Post-op pain - Discharge Information Referrals: Jassi Pleitez MD [Primary Care Provider] - Forms: ED Department Discharge Additional Instructions: RX for [facility] 1-2 tabs PO eveyr 6-8 hours prn pain written. you were given medication in the ER that can affect your ability to drive and operate machinery. Do not drive or operate machinery within 12 hours of taking prescription narcotic pain medication. Go home and rest. Make sure drinking plenty of fluids. Continue with your medications you have at home for nausea. Follow-up with Dr. Pleitez on Sunday as planned. Please return to ER if symptoms change or worsen. - My Orders Last 24 Hours: My Active Orders 03/02/18 22:04 Peripheral IV Insertion Adult [OM.PC] Routine 03/02/18 22:05 Peripheral IV Care [RC] . DIRECTED 03/02/18 22:10 UA W/MICROSCOPIC [URIN] Stat - Assessment/Plan Last 24 Hours: My Active Orders 03/02/18 22:04 Peripheral IV Insertion Adult [OM.PC] Routine 03/02/18 22:05 Peripheral IV Care [RC] . DIRECTED 03/02/18 22:10 UA W/MICROSCOPIC [URIN] Stat
[2018-03-02] MEDS: Sodium Chloride 0.9% 10 ML Syringe FLUSH PRN ×2 (22:27→22:30)
[2018-03-02] MEDS ORDERED: Acetaminophen/oxyCODONE 325-5 MG Tab PO ONE (23:03)
== END 2018-03-02 23:14 | disposition home or self-care (01) ==
LOC: JD.ED 21:11
DX: G89.18 Other acute postprocedural pain (principal); F17.210 Nicotine dependence, cigarettes, uncomplicated; J45.909 Unspecified asthma, uncomplicated; Z87.442 Personal history of urinary calculi; Z79.899 Other long term (current) drug therapy; Z88.0 Allergy status to penicillin; Z90.710 Acquired absence of both cervix and uterus; Z88.8 Allergy status to other drugs, medicaments and biological substances
CPT/HCPCS: 36415; 80048; 81001; 85025; 96374; 96375; 99283; A9270; J2060; J2405; J7050; 99284

== ENCOUNTER 2018-03-08 08:49 | Emergency (ER) | payer MEDICAID ==
[2018-03-08 09:08] VITALS: BP 114/82
[2018-03-08] MEDS ORDERED: Sodium Chloride 0.9% 1,000 ML IV ONE (09:43)
[2018-03-08] MEDS ORDERED: Ondansetron 4 MG/2 ML SDV IVPUSH ONE (09:43)
[2018-03-08] MEDS ORDERED: Loperamide 2 MG Cap PO STA (09:43)
[2018-03-08] MEDS ORDERED: LORazepam 2 MG/ML SDV IVPUSH STA (10:13)
--- NOTE | 2018-03-08 10:13 | EDM.PDOC ---
ED HPI GENERAL MEDICAL PROBLEM - General Chief Complaint: Gastrointestinal Problem Stated Complaint: VOMITING AND DIARRHEA AND ABD PAIN Time Seen by Provider: 03/08/18 09:04 Source of Information: Reports: Patient, Family (Mother) History Limitations: Reports: No Limitations - History of Present Illness INITIAL COMMENTS - FREE TEXT/NARRATIVE: The patient states that she developed nausea, vomiting, watery diarrhea, and abdominal cramps around 04:00 this morning. The patient states that she has suffered from recurrent nausea and vomiting over the past several months, although ordinarily does not have associated abdominal pain. She states that she has had 5 episodes of watery diarrhea today. She states that she took a Phenergan tablet around 04:30, and a Zofran ODT around 08:00, with no relief. She has not taken any antidiarrheal agent, such as Imodium. No similarly ill contacts. No recent spoiled food. No recent antibiotics. No recent travel. The patient does not have a PCP. Lower Abdomen Pain Score (Numeric/FACES): 4 - Related Data Allergies Allergy/AdvReac Type Severity Reaction Status Date / Time metronidazole [From Flagyl] Allergy Airway Verified 03/08/18 09:02 Tightness Penicillins Allergy Anaphylactic Verified 03/08/18 09:02 Shock metoclopramide [From Reglan] AdvReac Anxiety Verified 03/08/18 09:02 Home Meds: Home Meds Ondansetron [Zofran ODT] 4 mg PO Q6H PRN #15 tab.dis 02/15/18 [Rx] Promethazine [Phenergan] 25 mg PO Q6H PRN #30 tab 02/22/18 [Rx] Past Medical History HEENT History: Reports: Impaired Vision Genitourinary History: Reports: Renal Calculus Psychiatric History: Reports: Anxiety (untreated), Depression (untreated) Oncologic (Cancer) History: Reports: Cervix - Infectious Disease History Infectious Disease History: Reports: Other (See Below) (STDs) - Past Surgical History Female Surgical History: Reports: Section (x 3), Hysterectomy ( Laparoscopic vaginal 02/26/2018), Salpingo-Oophorectomy (Laparoscopic vaginal 2017), Ureteral Stent (left), Other (See Below) (Ovarian cystectomy x 3 or 4) Social & Family History - Family History Family Medical History: Noncontributory - Tobacco Use Smoking Status *Q: Current Every Day Smoker Years of Tobacco use: 9 Packs/Tins Daily: 0.3 Packs/Tins Daily Comment: Down from / ppd - Caffeine Use Caffeine Use: Reports: None Other Caffeine Use: a cup of coffee or soda "once in a great while." - Alcohol Use Alcohol Use History: Yes Alcohol Use Frequency: Socially - Recreational Drug Use Recreational Drug Use: Yes Drug Use in Last 12 Months: Yes Recreational Drug Type: Reports: Marijuana/Hashish (last smoked 12/08/2017) - Living Situation & Occupation Living situation: Reports: (), with Family (Parents, 3 kids) Occupation: Unemployed ED ROS GENERAL - Review of Systems Review Of Systems: ROS reveals no pertinent complaints other than HPI. ED EXAM, GI/ABD - Physical Exam Exam: See Below Exam Limited By: No Limitations General Appearance: Alert, WD/WN, No Apparent Distress Eyes: Bilateral: Normal Appearance, EOMI Ears: Normal External Exam, Hearing Grossly Normal Nose: Normal Inspection, No Blood Throat/Mouth: Normal Inspection, Normal Lips, Normal Voice, No Airway Compromise Head: Atraumatic, Normocephalic Neck: Normal Inspection, Full Range of Motion Respiratory/Chest: No Respiratory Distress, Lungs Clear, Normal Breath Sounds, No Accessory Muscle Use Cardiovascular: Normal Peripheral Pulses, Regular Rate, Rhythm, No Edema, No Gallop, No JVD, No Murmur, No Rub GI/Abdominal Exam: Normal Bowel Sounds, Soft, No Organomegaly, No Distention, No Abnormal Bruit, No Mass, Tender (Mild, generalized, non-focal) (Female) Exam: Deferred Rectal (Female) Exam: Deferred Back Exam: Normal Inspection, Full Range of Motion. No: CVA Tenderness (L), CVA Tenderness (R) Extremities: Normal Inspection, Normal Range of Motion, No Pedal Edema, Normal Capillary Refill Neurological: Alert, Oriented, Normal Cognition, No Motor/Sensory Deficits Psychiatric: Normal Affect Skin Exam: Warm, Dry, Intact, Normal Color, No Rash Course - Vital Signs Last Recorded V/S: Last Vital Signs Temp 37.1 C 03/08/18 08:56 Pulse 91 03/08/18 08:56 Resp 20 03/08/18 08:56 BP 114/82 03/08/18 08:56 Pulse Ox 100 03/08/18 08:56 - Orders/Labs/Meds Labs: Laboratory Tests 03/08/18 03/08/18 Range/Units 09:21 09:21 WBC 11.73 H (3.98-10.04) K/mm3 RBC 4.57 (3.98-5.22) M/mm3 Hgb 10.8 L (11.2-15.7) gm/L Hct 35.3 (34.1-44.9) % MCV 77.2 L (79.4-94.8) fl MCH 23.6 L (25.6-32.2) pg MCHC 30.6 L (32.2-35.5) g/dl RDW Std Deviation 45.8 (36.4-46.3) fL Plt Count 581 H (182-369) K/mm3 MPV 9.1 L (9.4-12.3) fl Neutrophils % (Manual) 62 H (40-60) % Band Neutrophils % 0 (0-10) % Lymphocytes % (Manual) 34 (20-40) % Atypical Lymphs % 0 % Monocytes % (Manual) 2 (2-10) % Eosinophils % (Manual) 2 (0.7-5.8) % Basophils % (Manual) 0 L (0.1-1.2) Platelet Estimate Marked inc Anisocytosis 1+ slight Microcytosis Moderate RBC Morph Comment Abnormal Sodium 139 (136-145) mEq/L Potassium 3.8 (3.5-5.1) mEq/L Chloride 105 (98-107) mEq/L Carbon Dioxide 20 L (21-32) mEq/L Anion Gap 17.8 H (5-15) BUN 17 (7-18) mg/dL Creatinine 1.0 (0.55-1.02) mg/dL Est Cr Clr Drug Dosing 76.31 mL/min Estimated GFR (MDRD) > 60 (>60) mL/min BUN/Creatinine Ratio 17.0 (14-18) Glucose 95 (74-106) mg/dL Calcium 9.7 (8.5-10.1) mg/dL Magnesium 1.6 L (1.8-2.4) mg/dl Total Bilirubin 0.3 (0.2-1.0) mg/dL AST 15 (15-37) U/L ALT 15 (14-59) U/L Alkaline Phosphatase 58 (46-116) U/L Total Protein 8.2 (6.4-8.2) g/dl Albumin 3.8 (3.4-5.0) g/dl Globulin 4.4 gm/dL Albumin/Globulin Ratio 0.9 L (1-2) Meds: Medications Discontinued Medications Generic Name Dose Route Start Last Admin Trade Name Trey PRN Reason Stop Dose Admin Sodium Chloride 1,000 mls @ 999 mls/hr 03/08/18 09:43 03/08/18 09:52 Normal Saline IV 03/08/18 10:43 999 mls/hr ONETIME ONE Administration Magnesium Sulfate 2 gm/ Premix 50 mls @ 50 mls/hr 03/08/18 10:49 03/08/18 10: 56 IV 03/08/18 11:48 50 mls/hr ONETIME STA Administration Loperamide HCl 4 mg 03/08/18 09:43 03/08/18 11:55 Imodium PO 03/08/18 09:44 Not Given ONETIME STA Lorazepam 1 mg 03/08/18 10:13 03/08/18 10:25 Ativan IVPUSH 03/08/18 10:14 1 mg ONETIME STA Administration Ondansetron HCl 4 mg 03/08/18 09:43 03/08/18 09:52 Zofran IVPUSH 03/08/18 09:44 4 mg ONETIME ONE Administration - Re-Assessments/Exams Free Text/Narrative Re-Assessment/Exam: 03/08/18 10:12 Notified by Ciara OCHOA that the patient is refusing the Imodium that was ordered , stating that she has been constipated. The patient had presented with a complaint of diarrhea, indeed, she told me that she had had 5 episodes of watery diarrhea since 04:00 this morning. The patient told Ciara OCHOA that all she wanted was something for anxiety. I will order Ativan, however, this behavior is concerning for drug-seeking. 03/08/18 10:50 The patient's magnesium has returned mildly depressed at 1.6. I have ordered a 1 g Mg-rider. The patient's bicarbonate is modestly depressed at 20, with an anion gap mildly elevated at 17.8. 1 L normal saline has already been ordered. The CBC demonstrates a WBC count elevated at 11.73, however, there is 0% bandemia. 03/08/18 12:39 Test results discussed with the patient. She states that she is feeling somewhat better. The patient appears to be fit for discharge home. She already has prescriptions for Zofran and Phenergan at home. I recommended over-the- counter Imodium, should her diarrhea return. I discussed the possibility that many, if not all, of the patient's symptoms are related to anxiety. She agreed. She states she has not previously been treated for anxiety. I will refer the patient to Dr. Franklin to discuss treatment options for anxiety. Departure - Departure Time of Disposition: 12:40 Disposition: Home, Self-Care 01 Condition: Good Clinical Impression: Gastroenteritis, Anxiety - Discharge Information Instructions: Viral Gastroenteritis, Adult, [id number] Referrals: PCP,None [Primary Care Provider] - Dolores Franklin MD [Physician] - Forms: ED Department Discharge Additional Instructions: You were seen in the emergency room for nausea, vomiting, watery diarrhea, and abdominal cramps. Workup in the ER included blood work, which found your magnesium level to be mildly low at 1.6. The remainder of your workup was unremarkable. Your magnesium was replaced by IV in the ER. Continue to take your usual medications, as prescribed. If you re-developed diarrhea, we recommended [id number] Imodium (loperamide), as directed on the label. Stay well hydrated. Gatorade or Powerade are best. Eat a bland diet for the next several days. Many, if not all, of your symptoms could be related to anxiety. We recommend that you follow-up with Dr. Dolores Franklin in the clinic to discuss treatment options for anxiety. If any other problems, please do not hesitate to return to the ER.
[2018-03-08] MEDS ORDERED: Magnesium Sulfate/Water 2 GM in Premix Bag 1 BAG IV STA (10:49)
== END 2018-03-08 12:50 | disposition home or self-care (01) ==
LOC: JD.ED 08:49
DX: K52.9 Noninfective gastroenteritis and colitis, unspecified (principal); F41.9 Anxiety disorder, unspecified; F17.210 Nicotine dependence, cigarettes, uncomplicated; Z88.1 Allergy status to other antibiotic agents; Z88.0 Allergy status to penicillin; Z88.8 Allergy status to other drugs, medicaments and biological substances
CPT/HCPCS: 36415; 80053; 83735; 85007; 85027; 96361; 96365; 96375; 99284; J2060; J2405; J7040; J3475

== ENCOUNTER 2018-10-21 16:48 | Emergency (ER) | payer MEDICAID, OTHER ==
[2018-10-21 17:04] VITALS: BP 160/108
[2018-10-21] MEDS ORDERED: Sodium Chloride 0.9% 10 ML Syringe FLUSH PRN (17:24)
[2018-10-21] MEDS ORDERED: Ondansetron 4 MG/2 ML SDV IVPUSH ONE (17:24)
[2018-10-21] MEDS ORDERED: Sodium Chloride 0.9% 1,000 ML IV STA (17:24)
[2018-10-21] MEDS ORDERED: HYDROmorphone 1 MG/ML Syringe IVPUSH ONE (17:25)
[2018-10-21] MEDS ORDERED: HYDROmorphone 1 MG/ML Syringe IM ONE ×2 (18:01→18:55)
--- NOTE | 2018-10-21 19:05 | US ---
Pelvic ultrasound: Multiple real-time images were obtained transvaginally as well as transabdominally. Comparison: Previous pelvic ultrasound exam of 01/30/18. Left ovary shows a small cyst measuring 2.5 cm in greatest size. This appears to be simple. Previous hysterectomy is noted. History of prior right oophorectomy is noted. No free fluid is seen. Impression: 1. 2.5 cm cyst within the left ovary. This appears simple. 2. Previous hysterectomy and prior right oophorectomy. Diagnostic code #2
--- NOTE | 2018-10-21 19:31 | EDM.PDOC ---
ED HPI GENERAL MEDICAL PROBLEM - General Chief Complaint: Abdominal Pain Stated Complaint: STOMACH PAIN Time Seen by Provider: 10/21/18 17:20 Source of Information: Reports: Patient History Limitations: Reports: No Limitations - History of Present Illness INITIAL COMMENTS - FREE TEXT/NARRATIVE: The patient presents with left lower abdominal pain. This started yesterday and it got worse today. She has no nausea, vomiting, diarrhea, or dysuria. She had a hysterectomy with tube and ovary removed on the right. She still has an ovary on the left. She has no fever, chills, cough, chest pain or shortness of breath. Onset: Gradual Duration: Day(s): (2) Location: Reports: Abdomen (LLQ) Quality: Reports: Sharp Severity: Severe Improves with: Reports: None Worsens with: Reports: None Associated Symptoms: Reports: No Other Symptoms Left Lower Abdominal Pain Score (Numeric/FACES): 7 - Related Data Allergies Allergy/AdvReac Type Severity Reaction Status Date / Time metronidazole [From Flagyl] Allergy Airway Verified 10/21/18 17:04 Tightness Penicillins Allergy Anaphylactic Verified 10/21/18 17:04 Shock metoclopramide [From Reglan] AdvReac Anxiety Verified 10/21/18 17:04 Home Meds: Home Meds Cetirizine [ZyrTEC] 10 tab PO DAILY 05/28/18 [History] Cyclobenzaprine [Flexeril] 10 mg PO TID PRN #15 tab 05/28/18 [Rx] Ketorolac [Toradol] 10 mg PO Q8H PRN #15 tab 07/30/18 [Rx] Ascorbate Calcium [Vitamin C] 500 mg PO DAILY 08/19/18 [History] Iron 65 mg PO DAILY 08/19/18 [History] Meloxicam [Mobic] 15 mg PO DAILY 08/19/18 [History] Escitalopram Oxalate 20 mg PO DAILY 08/29/18 [History] Fluticasone Propionate [Flovent] 1 puff INH DAILY 08/29/18 [History] Gabapentin [Neurontin] 300 mg PO BID 08/29/18 [History] Pantoprazole [ProTONIX] 40 mg PO DAILY 08/29/18 [History] Promethazine [Phenergan] 25 mg PO Q6H PRN 08/29/18 [History] Propranolol HCl 10 mg PO TID PRN 08/29/18 [History] V-R Vitamin C 500 mg PO DAILY 08/29/18 [History] oxyCODONE HCl/Acetaminophen [Oxycodone-Acetaminophen 5-325] 1 tab PO Q12H PRN [History] traZODone HCl [Trazodone HCl] 50 mg PO DAILY 08/29/18 [History] Past Medical History HEENT History: Reports: Impaired Vision Cardiovascular History: Reports: None Respiratory History: Reports: Asthma Other Respiratory History: Exercise induced asthma Gastrointestinal History: Reports: Other (See Below) Other Gastrointestinal History: Bowel obstruction following Genitourinary History: Reports: Renal Calculus Other Genitourinary History: reports vaginal bleeding x40 days MANAGER MEDIA RELATIONS History: Reports: 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, Hyperemesis, Other (See Below) Other MANAGER MEDIA RELATIONS History: endometrioma Musculoskeletal History: Reports: Back Pain, Chronic, Other (See Below) Other Musculoskeletal History: L-4 and L-5 disk disease Neurological History: Reports: CVA, Vertigo Other Neuro History: Stroke in 2007 Psychiatric History: Reports: Anxiety, Depression Endocrine/Metabolic History: Reports: Obesity/BMI 30+ Hematologic History: Reports: Anemia Immunologic History: Reports: None Oncologic (Cancer) History: Reports: Cervix Dermatologic History: Reports: None - Infectious Disease History Infectious Disease History: Reports: Other (See Below) - Past Surgical History Head Surgeries/Procedures: Reports: None Female Surgical History: Reports: Section, Hysterectomy, Salpingo- Oophorectomy, Ureteral Stent Social & Family History - Family History Family Medical History: Noncontributory - Tobacco Use Smoking Status *Q: Current Every Day Smoker Years of Tobacco use: 10 Packs/Tins Daily: 0.2 - Caffeine Use Caffeine Use: Reports: None Other Caffeine Use: a cup of coffee or soda "once in a great while." - Recreational Drug Use Recreational Drug Use: No - Living Situation & Occupation Living situation: Reports: (), with Family (Parents, 3 kids) Occupation: Unemployed ED ROS GENERAL - Review of Systems Review Of Systems: See Below Constitutional: Reports: No Symptoms HEENT: Reports: No Symptoms Respiratory: Reports: No Symptoms Cardiovascular: Reports: No Symptoms Endocrine: Reports: No Symptoms GI/Abdominal: Reports: Abdominal Pain. Denies: Nausea, Vomiting : Reports: No Symptoms Musculoskeletal: Reports: No Symptoms ED EXAM, GI/ABD - Physical Exam Exam: See Below Exam Limited By: No Limitations General Appearance: Alert, No Apparent Distress Ears: Normal External Exam Nose: Normal Inspection Head: Atraumatic, Normocephalic Neck: Normal Inspection Respiratory/Chest: No Respiratory Distress, Lungs Clear, Normal Breath Sounds Cardiovascular: Regular Rate, Rhythm, No Edema, No Murmur GI/Abdominal Exam: Soft, No Organomegaly, No Mass, Tender (Moderate tenderness to the left lower abdomen) Course - Vital Signs Last Recorded V/S: Last Vital Signs Temp 98.8 F 10/21/18 17:00 Pulse 90 10/21/18 17:00 Resp 17 10/21/18 17:00 BP 160/108 H 10/21/18 17:00 Pulse Ox 100 10/21/18 17:00 - Orders/Labs/Meds Orders: Active Orders 24 hr Category Date Time Status Peripheral IV Care [RC] . DIRECTED Care 10/21/18 17:25 Active Sodium Chloride 0.9% [Saline Flush] Med 10/21/18 17:24 Active 10 ml FLUSH ASDIRECTED PRN ED Antiemetic Medication Reflex [OM.PC] Stat Oth 10/21/18 17:25 Ordered Peripheral IV Insertion Adult [OM.PC] Stat Oth 10/21/18 17:24 Ordered Medication Orders Sodium Chloride (Saline Flush) 10 ml FLUSH ASDIRECTED PRN PRN Reason: Keep Vein Open Labs: Laboratory Tests 10/21/18 10/21/18 10/21/18 Range/Units 15:58 17:55 17:55 WBC 6.92 (3.98-10.04) K/mm3 RBC 4.56 (3.98-5.22) M/mm3 Hgb 12.3 (11.2-15.7) gm/L Hct 39.3 (34.1-44.9) % MCV 86.2 (79.4-94.8) fl MCH 27.0 (25.6-32.2) pg MCHC 31.3 L (32.2-35.5) g/dl RDW Std Deviation 53.8 H (36.4-46.3) fL Plt Count 356 (182-369) K/mm3 MPV 9.0 L (9.4-12.3) fl Neut % (Auto) 52.8 (34.0-71.1) % Lymph % (Auto) 32.1 (19.3-51.7) % [place] % (Auto) 10.7 (4.7-12.5) % Eos % (Auto) 3.8 (0.7-5.8) Baso % (Auto) 0.6 (0.1-1.2) % Neut # (Auto) 3.66 (1.56-6.13) K/mm3 Lymph # (Auto) 2.22 (1.18-3.74) K/mm3 [place] # (Auto) 0.74 H (0.24-0.36) K/mm3 Eos # (Auto) 0.26 (0.04-0.36) K/mm3 Baso # (Auto) 0.04 (0.01-0.08) K/mm3 Sodium 140 (136-145) mEq/L Potassium 4.0 (3.5-5.1) mEq/L Chloride 107 (98-107) mEq/L Carbon Dioxide 26 (21-32) mEq/L Anion Gap 11.0 (5-15) BUN 14 (7-18) mg/dL Creatinine 0.8 (0.55-1.02) mg/dL Est Cr Clr Drug Dosing 94.51 mL/min Estimated GFR (MDRD) > 60 (>60) mL/min BUN/Creatinine Ratio 17.5 (14-18) Glucose 77 (74-106) mg/dL Calcium 9.0 (8.5-10.1) mg/dL Total Bilirubin 0.1 L (0.2-1.0) mg/dL AST 19 (15-37) U/L ALT 19 (14-59) U/L Alkaline Phosphatase 53 (46-116) U/L Total Protein 7.5 (6.4-8.2) g/dl Albumin 3.7 (3.4-5.0) g/dl Globulin 3.8 gm/dL Albumin/Globulin Ratio 1.0 (1-2) Lipase 167 (73-393) U/L Urine Color Yellow (Yellow) Urine Appearance Clear (Clear) Urine pH 6.0 (5.0-8.0) Ur Specific [place] > or = 1.030 (1.005-1.030) Urine Protein 1+ H (Negative) Urine Glucose (UA) Negative (Negative) Urine Ketones Negative (Negative) Urine Occult Blood Negative (Negative) Urine Nitrite Negative (Negative) Urine Bilirubin Negative (Negative) Urine Urobilinogen 0.2 (0.2-1.0) Ur Leukocyte Esterase Negative (Negative) Urine RBC 0-5 (0-5) /hpf Urine WBC 0-5 (0-5) /hpf Ur Epithelial Cells Not Reportable Ur Squamous Epith Cells 5-10 H (0-5) /hpf Urine Bacteria Few (FEW) /hpf Urine Mucus Moderate H (FEW) /hpf Meds: Medications Generic Name Dose Route Start Last Admin Trade Name Freq PRN Reason Stop Dose Admin Sodium Chloride 10 ml 10/21/18 17:24 Saline Flush FLUSH ASDIRECTED PRN Keep Vein Open Discontinued Medications Generic Name Dose Route Start Last Admin Trade Name Freq PRN Reason Stop Dose Admin Hydromorphone HCl 0.5 mg 10/21/18 17:25 10/21/18 18:19 Dilaudid IVPUSH 10/21/18 17:26 Not Given ONETIME ONE Hydromorphone HCl 1 mg 10/21/18 18:01 10/21/18 18:09 Dilaudid IM 10/21/18 18:02 1 mg ONETIME ONE Administration Hydromorphone HCl 1 mg 10/21/18 18:55 10/21/18 19:03 Dilaudid IM 10/21/18 18:56 1 mg ONETIME ONE Administration Sodium Chloride 1,000 mls @ 1,000 mls/hr 10/21/18 17:24 10/21/18 18:19 Normal Saline IV 10/21/18 18:23 Not Given .BOLUS STA Ondansetron HCl 4 mg 10/21/18 17:24 10/21/18 18:19 Zofran IVPUSH 10/21/18 17:25 Not Given ONETIME ONE - Re-Assessments/Exams Free Text/Narrative Re-Assessment/Exam: 10/21/18 19:29 I ordered labs, UA and an US of her pelvis. I also ordered dilaudid 1mg IM. Her CBC and CMP look good. Her UA shows no UTI. The US shows a 2.5cm cyst within the left ovary. This appears simple. Previous hysterectomy and prior right oophorectomy. She had more pain after the US so I ordered more dilaudid 1mg IM. Departure - Departure Time of Disposition: 19:35 Disposition: Home, Self-Care 01 Condition: Good Clinical Impression: Left ovarian cyst - Discharge Information *PRESCRIPTION DRUG MONITORING PROGRAM REVIEWED*: No *COPY OF PRESCRIPTION DRUG MONITORING REPORT IN PATIENT QIAN: No Referrals: Dolores Franklin MD [Primary Care Provider] - Additional Instructions: Take tylenol or motrin for pain. If that does not work, try some hydrocodone for pain. Please return if you are worse. Follow up with your doctor in a week. - My Orders Last 24 Hours: My Active Orders 10/21/18 17:24 Sodium Chloride 0.9% [Saline Flush] 10 ml FLUSH ASDIRECTED PRN Peripheral IV Insertion Adult [OM.PC] Stat 10/21/18 17:25 Peripheral IV Care [RC] . DIRECTED ED Antiemetic Medication Reflex [OM.PC] Stat - Assessment/Plan Last 24 Hours: My Active Orders 10/21/18 17:24 Sodium Chloride 0.9% [Saline Flush] 10 ml FLUSH ASDIRECTED PRN Peripheral IV Insertion Adult [OM.PC] Stat 10/21/18 17:25 Peripheral IV Care [RC] . DIRECTED ED Antiemetic Medication Reflex [OM.PC] Stat
== END 2018-10-21 19:45 | disposition home or self-care (01) ==
LOC: JD.ED 16:48
DX: N83.202 Unspecified ovarian cyst, left side (principal); J45.909 Unspecified asthma, uncomplicated; F17.210 Nicotine dependence, cigarettes, uncomplicated; F41.9 Anxiety disorder, unspecified; F32.9 Major depressive disorder, single episode, unspecified; Z88.8 Allergy status to other drugs, medicaments and biological substances; Z88.0 Allergy status to penicillin; Z79.899 Other long term (current) drug therapy
CPT/HCPCS: 36415; 76830; 80053; 81001; 83690; 85025; 96372; 99284; J1170

== ENCOUNTER 2018-12-02 13:26 | Emergency (ER) | payer MEDICAID ==
[2018-12-02 13:51] VITALS: BP 155/99
[2018-12-02] MEDS ORDERED: HYDROmorphone 1 MG/ML Syringe IM ONE (14:02)
--- NOTE | 2018-12-02 14:03 | EDM.PDOC ---
ED HPI GENERAL MEDICAL PROBLEM - General Chief Complaint: Lower Extremity Injury/Pain Stated Complaint: FOOT PAIN Time Seen by Provider: 12/02/18 13:49 Source of Information: Reports: Patient History Limitations: Reports: No Limitations - History of Present Illness INITIAL COMMENTS - FREE TEXT/NARRATIVE: The patient presents with right foot pain. This started weeks ago and she saw Dr Tong. She is going to have surgery on January 01. She got a steroid injection in her foot and that did not help. She has more pain and Dr Tong wanted her to take more of her percocet but she ran out because she is taking more. She cannot get another prescription filled because the 2 doctors did not communicate yet. Onset: Gradual Duration: Week(s): Location: Reports: Lower Extremity, Right (foot) Quality: Reports: Sharp Severity: Moderate Improves with: Reports: Immobilization Worsens with: Reports: Movement Associated Symptoms: Reports: No Other Symptoms Right Feet Pain Score (Numeric/FACES): 8 - Related Data Allergies Allergy/AdvReac Type Severity Reaction Status Date / Time metronidazole [From Flagyl] Allergy Airway Verified 12/02/18 13:52 Tightness Penicillins Allergy Anaphylactic Verified 12/02/18 13:52 Shock metoclopramide [From Reglan] AdvReac Anxiety Verified 12/02/18 13:52 Home Meds: Home Meds Cetirizine [ZyrTEC] 10 tab PO DAILY 05/28/18 [History] Cyclobenzaprine [Flexeril] 10 mg PO TID PRN #15 tab 05/28/18 [Rx] Iron 65 mg PO DAILY 08/19/18 [History] Meloxicam [Mobic] 15 mg PO DAILY 08/19/18 [History] Escitalopram Oxalate 20 mg PO DAILY 08/29/18 [History] Gabapentin [Neurontin] 150 mg PO BID 08/29/18 [History] traZODone HCl [Trazodone HCl] 50 mg PO BEDTIME 08/29/18 [History] oxyCODONE HCl/Acetaminophen [Percocet 5-325 mg Tablet] 1 each PO BID 12/02/18 [ History] Past Medical History HEENT History: Reports: Impaired Vision Cardiovascular History: Reports: None Respiratory History: Reports: Asthma Other Respiratory History: Exercise induced asthma Gastrointestinal History: Reports: Other (See Below) Other Gastrointestinal History: Bowel obstruction following Genitourinary History: Reports: Renal Calculus Other Genitourinary History: reports vaginal bleeding x40 days TOWER ATTENDANT History: Reports: 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, Hyperemesis, Other (See Below) Other TOWER ATTENDANT History: endometrioma Musculoskeletal History: Reports: Back Pain, Chronic, Other (See Below) Other Musculoskeletal History: L-4 and L-5 disk disease Neurological History: Reports: CVA, Vertigo Other Neuro History: Stroke in 2007 Psychiatric History: Reports: Anxiety, Depression Endocrine/Metabolic History: Reports: Obesity/BMI 30+ Hematologic History: Reports: Anemia Immunologic History: Reports: None Oncologic (Cancer) History: Reports: Cervix Dermatologic History: Reports: None - Infectious Disease History Infectious Disease History: Reports: Other (See Below) - Past Surgical History Head Surgeries/Procedures: Reports: None Female Surgical History: Reports: Section, Hysterectomy, Salpingo- Oophorectomy, Ureteral Stent Social & Family History - Family History Family Medical History: Noncontributory - Caffeine Use Caffeine Use: Reports: None Other Caffeine Use: a cup of coffee or soda "once in a great while." - Living Situation & Occupation Living situation: Reports: (), with Family (Parents, 3 kids) Occupation: Unemployed Review of Systems - Review of Systems Review Of Systems: See Below Constitutional: Reports: No Symptoms Eyes: Reports: No Symptoms Ears: Reports: No Symptoms Nose: Reports: No Symptoms Mouth/Throat: Reports: No Symptoms Respiratory: Reports: No Symptoms Cardiovascular: Reports: No Symptoms GI/Abdominal: Reports: No Symptoms Genitourinary: Reports: No Symptoms Musculoskeletal: Reports: Other (Right foot pain) ED EXAM, GENERAL - Physical Exam Exam: See Below Exam Limited By: No Limitations General Appearance: Alert, No Apparent Distress Ears: Normal External Exam Nose: Normal Inspection Head: Atraumatic, Normocephalic Neck: Normal Inspection Respiratory/Chest: No Respiratory Distress Extremities: Other (Right foot pain to the lateral side of the foot.) Course - Vital Signs Last Recorded V/S: Last Vital Signs Temp 97.8 F 12/02/18 13:48 Pulse 108 H 12/02/18 13:48 Resp 16 12/02/18 13:48 BP 155/99 H 12/02/18 13:48 Pulse Ox 100 12/02/18 13:48 - Re-Assessments/Exams Free Text/Narrative Re-Assessment/Exam: 12/02/18 14:02 I will give her a shot for pain and a few more percocet until she can get more from her doctor. Departure - Departure Time of Disposition: 14:05 Disposition: Home, Self-Care 01 Condition: Good Clinical Impression: Right foot pain - Discharge Information *PRESCRIPTION DRUG MONITORING PROGRAM REVIEWED*: No *COPY OF PRESCRIPTION DRUG MONITORING REPORT IN PATIENT QIAN: No Referrals: Dolores Franklin MD [Primary Care Provider] - 3 Days Additional Instructions: Take your medication as prescribed. Please get in contact with Dr Bryan and let her know you get more meds and you may need a couple more for a few weeks.
== END 2018-12-02 14:22 | disposition home or self-care (01) ==
LOC: JD.ED 13:26
DX: M79.671 Pain in right foot (principal); J45.909 Unspecified asthma, uncomplicated; F41.9 Anxiety disorder, unspecified; Z88.0 Allergy status to penicillin; Z88.8 Allergy status to other drugs, medicaments and biological substances; Z79.899 Other long term (current) drug therapy
CPT/HCPCS: 96372; 99283; J1170; 99282

== ENCOUNTER 2018-12-15 14:03 | Emergency (ER) | payer MEDICAID ==
[2018-12-15 14:26] VITALS: BP 153/92
[2018-12-15] MEDS ORDERED: Ketorolac 30 MG/ML SDV IM ONE (15:54)
[2018-12-15] MEDS ORDERED: predniSONE 20 MG Tab PO ONE (15:54)
[2018-12-15] MEDS ORDERED: Acetaminophen/oxyCODONE 325-5 MG Tab PO ONE (16:37)
--- NOTE | 2018-12-15 16:49 | EDM.PDOC ---
ED HPI GENERAL MEDICAL PROBLEM - General Chief Complaint: Back Pain or Injury Stated Complaint: FELL FROM BACK PAIN Time Seen by Provider: 12/15/18 14:23 Source of Information: Reports: Patient, RN Notes Reviewed History Limitations: Reports: No Limitations - History of Present Illness INITIAL COMMENTS - FREE TEXT/NARRATIVE: Patient is a 33-year-old female who presents to the ED for evaluation of lower back pain after a fall. He states that she chronically has lower back pain. Today while walking up 3 steps she felt her left knee give out which cause her to fall to the side and in attempts to catch herself she injured the fourth and fifth fingers of her right hand on the stair railing. She is Right handed. It was at this time she thought she heard a popping noise or felt a popping sensation and a warm flush into her lower back that radiated down her left leg. She further notes a history of left-sided sciatica that she has been dealing with. She states that she has 3 spots in her back which she characterizes as degenerative disc disease, she has been trying to get the surgically repaired, but states that no surgeon wants to do this due to the complexity of her case. She states that she normally takes 2 tabs of Percocet 5/325 daily 1 in the morning & 1 at night, and 300 mg of gabapentin at bedtime. She states that she is supposed to take 150 mg of gabapentin in the morning and 150mg at night as this makes her feel "floaty" during the day and does not like the sensation. She notes this pain to be mostly burning in nature, and would rate this at an 8 out of 10 on the pain scale. Right Finger-Little Pain Score (Numeric/FACES): 6 Lower Back Pain Score (Numeric/FACES): 8 - Related Data Allergies Allergy/AdvReac Type Severity Reaction Status Date / Time metronidazole [From Flagyl] Allergy Airway Verified 12/15/18 14:16 Tightness Penicillins Allergy Anaphylactic Verified 12/15/18 14:16 Shock metoclopramide [From Reglan] AdvReac Anxiety Verified 12/15/18 14:16 Home Meds: Home Meds Cetirizine [ZyrTEC] 10 tab PO DAILY 05/28/18 [History] Cyclobenzaprine [Flexeril] 10 mg PO TID PRN #15 tab 05/28/18 [Rx] Iron 65 mg PO BID 08/19/18 [History] Escitalopram Oxalate 20 mg PO DAILY 08/29/18 [History] Gabapentin [Neurontin] 300 mg PO QPM 08/29/18 [History] traZODone HCl [Trazodone HCl] 50 mg PO BEDTIME 08/29/18 [History] oxyCODONE HCl/Acetaminophen [Percocet 5-325 mg Tablet] 1 each PO BID 12/02/18 [ History] Past Medical History HEENT History: Reports: Impaired Vision Cardiovascular History: Reports: None Respiratory History: Reports: Asthma Other Respiratory History: Exercise induced asthma Gastrointestinal History: Reports: Other (See Below) Other Gastrointestinal History: Bowel obstruction following Genitourinary History: Reports: Renal Calculus Other Genitourinary History: reports vaginal bleeding x40 days 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: Reports: 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, Hyperemesis, Other (See Below) Other 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: endometrioma Musculoskeletal History: Reports: Back Pain, Chronic, Other (See Below) Other Musculoskeletal History: L-4 and L-5 disk disease Neurological History: Reports: CVA, Vertigo Other Neuro History: Stroke in 2007 Psychiatric History: Reports: Anxiety, Depression Endocrine/Metabolic History: Reports: Obesity/BMI 30+ Hematologic History: Reports: Anemia Immunologic History: Reports: None Oncologic (Cancer) History: Reports: Cervix Dermatologic History: Reports: None - Infectious Disease History Infectious Disease History: Reports: Other (See Below) - Past Surgical History Head Surgeries/Procedures: Reports: None Female Surgical History: Reports: Section, Hysterectomy, Salpingo- Oophorectomy, Ureteral Stent Social & Family History - Family History Family Medical History: Noncontributory - Tobacco Use Smoking Status *Q: Current Every Day Smoker Years of Tobacco use: 10 Packs/Tins Daily: 0.2 - Caffeine Use Caffeine Use: Reports: None Other Caffeine Use: a cup of coffee or soda "once in a great while." - Recreational Drug Use Recreational Drug Use: No - Living Situation & Occupation Living situation: Reports: (), with Family (Parents, 3 kids) Occupation: Unemployed ED ROS GENERAL - Review of Systems Review Of Systems: See Below Constitutional: Reports: No Symptoms HEENT: Reports: No Symptoms Respiratory: Reports: No Symptoms Cardiovascular: Reports: No Symptoms Endocrine: Reports: No Symptoms GI/Abdominal: Reports: No Symptoms : Reports: No Symptoms Musculoskeletal: Reports: Back Pain (SEE HPI), Hand Pain (SEE HPI) Skin: Reports: No Symptoms Neurological: Reports: Tingling (burning sensation) ED EXAM,LOWER BACK PAIN/INJURY - Physical Exam Exam: See Below Exam Limited By: No Limitations General Appearance: Alert, WD/WN, Mild Distress (Pt is bent over the bed resting on her elbows, and is icing her 4th & 5th fingers) Eye Exam: Bilateral Eye: Normal Inspection Ears: Normal External Exam Nose: Normal Inspection Throat/Mouth: Normal Inspection Head: Atraumatic, Normocephalic Neck: Normal Inspection Respiratory/Chest: No Respiratory Distress, Lungs Clear, Normal Breath Sounds, No Accessory Muscle Use, Chest Non-Tender Cardiovascular: Normal Peripheral Pulses, Regular Rate, Rhythm, No Murmur GI/Abdominal: Normal Bowel Sounds, Soft Back Exam: Normal Inspection, Other (tenderness to left lateral lumbar area, that she states radiates to lateral left leg.) Extremities: Normal Inspection, Normal Capillary Refill, Limited Range of Motion (to right 4th and 5th digits, she is able to move them, but this is painful to do so.) Neurological: Alert, Normal Mood/Affect, Normal Gait, No Motor/Sensory Deficits , Straight Leg Raise (L). No: Straight Leg Raise (R), Saddle Anesthesia Psychiatric: Normal Affect, Normal Mood Skin Exam: Warm, Dry, Intact, Normal Color, No Rash Course - Vital Signs Last Recorded V/S: Last Vital Signs Temp 98.4 F 12/15/18 14:18 Pulse 126 H 12/15/18 14:18 Resp 16 12/15/18 14:18 BP 153/92 H 12/15/18 14:18 Pulse Ox 98 12/15/18 14:18 - Orders/Labs/Meds Orders: Active Orders 24 hr Category Date Time Status Fingers Fifth Digit Rt F9 [CR] Stat Exams 12/15/18 15:55 Taken Fingers Fourth Digit Rt F8 [CR] Stat Exams 12/15/18 15:55 Taken Meds: Medications Discontinued Medications Generic Name Dose Route Start Last Admin Trade Name Freq PRN Reason Stop Dose Admin Ketorolac Tromethamine 30 mg 12/15/18 15:54 12/15/18 16:00 Toradol IM 12/15/18 15:55 30 mg ONETIME ONE Administration Oxycodone/Acetaminophen 2 tab 12/15/18 16:37 12/15/18 16:41 Percocet 325-5 Mg PO 12/15/18 16:38 2 tab ONETIME ONE Administration Prednisone 20 mg 12/15/18 15:54 12/15/18 16:00 Prednisone PO 12/15/18 15:55 20 mg ONETIME ONE Administration - Re-Assessments/Exams Free Text/Narrative Re-Assessment/Exam: 12/15/18 15:54 Pt presents to the ED for the evaluation of lower back pain/left leg pain and 4th and 5th finger pain. Have ordered finger x-rays to make sure that she did not break them. Have ordered 30mg IM Toradol and 20mg PO prednisone for pain relief. Plan to send her home with steroid burst to relieve sciatica symptoms. 12/15/18 16:55 Pt re-assessed at bedside, and states that she is still in a fair amount of pain. I have ordered 2 tabs of Percocet 5-325 for pain relief. I will send the script for the steroid burst to the [facility]. Her x-rays demonstrate no acute fracture or bony abnormality. We'll recommend that she follows up with her primary care provider sometime this week for reevaluation of her back. Departure - Departure Time of Disposition: 16:57 Disposition: Home, Self-Care 01 Condition: Fair Clinical Impression: Sciatica Qualifiers: Laterality: left Qualified Code(s): M54.32 - Sciatica, left side - Discharge Information *PRESCRIPTION DRUG MONITORING PROGRAM REVIEWED*: No *COPY OF PRESCRIPTION DRUG MONITORING REPORT IN PATIENT QIAN: No Instructions: Sciatica, [id number] Referrals: Dolores Franklin MD [Primary Care Provider] - Forms: ED Department Discharge Additional Instructions: You have been evaluated in the ED today for your lower back pain/finger pain. Your finger x-rays did not demonstrate any signs of an acute fracture in her fourth and fifth digits of the right hand. You have been given a medication in the ER that will impair your ability to drive, you will need to find a ride to take you home from the ED today. Please take the prednisone as directed, 20 mg twice a day for 5 days and then only 20 mg once daily for 5 days, this is for relief of sciatic symptoms. Please take your prescribed pain medications as previously prescribed by your primary care doctor. Please return to the ED if symptoms change or worsen. - My Orders Last 24 Hours: My Active Orders 12/15/18 15:55 Fingers Fifth Digit Rt F9 [CR] Stat Fingers Fourth Digit Rt F8 [CR] Stat - Assessment/Plan Last 24 Hours: My Active Orders 12/15/18 15:55 Fingers Fifth Digit Rt F9 [CR] Stat Fingers Fourth Digit Rt F8 [CR] Stat
--- NOTE | 2018-12-16 07:04 | CR ---
Right fifth finger: Three views of the right fifth finger were obtained. Comparison: No prior finger exam. Joint spaces are maintained. No fracture, dislocation or other bony abnormality is seen. Impression: 1. No abnormality is seen on right fifth finger exam. Diagnostic code #1
--- NOTE | 2018-12-16 07:07 | CR ---
Right fourth finger: Three views of the right fourth finger were obtained. Comparison: No previous study. Joint spaces are preserved. No fracture, dislocation or other bony abnormality is seen. Impression: 1. No abnormality is appreciated on right fourth finger exam. Diagnostic code #1
== END 2018-12-15 17:10 | disposition home or self-care (01) ==
LOC: JD.ED 14:03
DX: M54.42 Lumbago with sciatica, left side (principal); F17.210 Nicotine dependence, cigarettes, uncomplicated; J45.909 Unspecified asthma, uncomplicated; Z88.8 Allergy status to other drugs, medicaments and biological substances; Z88.0 Allergy status to penicillin; Z79.899 Other long term (current) drug therapy
CPT/HCPCS: 73140; 96372; 99283; A9270; J1885

== ENCOUNTER 2018-12-31 11:15 | Emergency (ER) | payer MEDICAID, SELFPAY ==
[2018-12-31 11:31] VITALS: BP 142/95
[2018-12-31] MEDS ORDERED: Promethazine 12.5 MG in Sodium Chloride 0.9% 50 ML IV ONE (12:16)
[2018-12-31] MEDS ORDERED: Sodium Chloride 0.9% 10 ML Syringe FLUSH PRN (12:16)
[2018-12-31] MEDS ORDERED: HYDROmorphone 1 MG/ML Syringe IVPUSH ONE ×2 (12:18→13:54)
[2018-12-31] MEDS ORDERED: Sodium Chloride 0.9% 1,000 ML IV SCH (12:30)
--- NOTE | 2018-12-31 12:58 | EDM.PDOC ---
<Robert Coronado - Last Filed: 12/31/18 13:29> ED HPI GENERAL MEDICAL PROBLEM - General Chief Complaint: Lower Extremity Injury/Pain Stated Complaint: foot pain and abdominal pains Time Seen by Provider: 12/31/18 11:41 - History of Present Illness INITIAL COMMENTS - FREE TEXT/NARRATIVE: Pt presents with new onset of right foot pain after traumatic incident yesterday evening 12/30/18 after jarring her digits 3-5 of her left foot with a door frame. The injury took place last evening after getting up quick to check on her daughter. As the patient proceeded to pass through the doorway her foot accidently collided with the door frame. Pain was noticed immediately and she was unable to walk. She rates her pain 8/10 and is described as being sharp and aggravated with movement or palpation. She has taken Percocet which was previously prescribed for degenerative musculoskeletal pain. Currently, she is scheduled to have surgery this 01/02/[address] Clinton on her 4 and 5th digit. She denies any pain radiation but admits this is a new pain. Pt denies hip, knee, or ankle pain. Pt further denies paresthesias, pallor, or loss loss of range of motion of the right foot. Pt is s/p partial hysterectomy 6 mo ago and also presents for a new occurrence of colicky abdominal pain that began 2 days ago. She states that she has long history of constipation and has recently ran out of her stool softener this past week. Pt points to the pain in the RUQ region, dull, and not well localized. She admits her appetite is poor and really has been fluctuant this past year weight. She states that her last bowel movement was yesterday afternoon. She also has had decreased oral intake of fluids. She also has h/o of nausea that is managed at home with Phenergan. She admits to have only 1 partner at this time with no concerns of STD. Her last menstrual period was about 6 months ago before her partial hysterectomy due to cervical cancer. She admits to have Chronic dypurenia and chronic dysuria. She denies any vaginal bleeding, discharge, or pain Pt also has an h/o anxiety and depression. She states that her sleep has been improving but still poor. She recently had a change the dose of her trazodone to help with sleep. She admits to being anxious with many attributable stressors. She has no concerns about her psychiatric treatments at this time. Onset Date: 12/30/18 (evening) Duration: Constant Location: Reports: Lower Extremity, Right Quality: Reports: Ache, Sharp Severity: Moderate (to severe) Improves with: Reports: None Worsens with: Reports: Movement Right Foot Pain Score (Numeric/FACES): 8 - Related Data Allergies Allergy/AdvReac Type Severity Reaction Status Date / Time metronidazole [From Flagyl] Allergy Airway Verified 12/31/18 11:31 Tightness Penicillins Allergy Anaphylactic Verified 12/31/18 11:31 Shock metoclopramide [From Reglan] AdvReac Anxiety Verified 12/31/18 11:31 Home Meds: Home Meds Cetirizine [ZyrTEC] 10 tab PO DAILY 05/28/18 [History] Cyclobenzaprine [Flexeril] 10 mg PO TID PRN #15 tab 05/28/18 [Rx] Iron 65 mg PO BID 08/19/18 [History] Escitalopram Oxalate 20 mg PO DAILY 08/29/18 [History] Gabapentin [Neurontin] 300 mg PO BEDTIME 08/29/18 [History] traZODone HCl [Trazodone HCl] 100 mg PO BEDTIME 08/29/18 [History] oxyCODONE HCl/Acetaminophen [Percocet 5-325 mg Tablet] 5 - 325 mg PO Q6H PRN 09/09 [History] Ascorbate Calcium [Vitamin C] 500 mg PO BID 12/31/18 [History] Meloxicam 0 mg PO DAILY 12/31/18 [History] Pantoprazole Sodium 40 mg PO DAILY 12/31/18 [History] Past Medical History HEENT History: Reports: Impaired Vision Cardiovascular History: Reports: None Respiratory History: Reports: Asthma Other Respiratory History: Exercise induced asthma Gastrointestinal History: Reports: Other (See Below) Other Gastrointestinal History: Bowel obstruction following Genitourinary History: Reports: Renal Calculus Other Genitourinary History: reports vaginal bleeding x40 days 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: Reports: 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, Hyperemesis, Other (See Below) 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: endometrioma Musculoskeletal History: Reports: Back Pain, Chronic, Other (See Below) Other Musculoskeletal History: L-4 and L-5 disk disease Neurological History: Reports: CVA, Vertigo Other Neuro History: Stroke in 2008 Psychiatric History: Reports: Anxiety, Depression Endocrine/Metabolic History: Reports: Obesity/BMI 30+ Hematologic History: Reports: Anemia Immunologic History: Reports: None Oncologic (Cancer) History: Reports: Cervix Dermatologic History: Reports: None - Infectious Disease History Infectious Disease History: Reports: Chicken Pox, Influenza - Past Surgical History Head Surgeries/Procedures: Reports: None Female Surgical History: Reports: Section, Hysterectomy, Salpingo- Oophorectomy, Ureteral Stent Social & Family History - Family History Family Medical History: Noncontributory - Tobacco Use Smoking Status *Q: Current Every Day Smoker Years of Tobacco use: 11 Packs/Tins Daily: 0.5 - Caffeine Use Caffeine Use: Reports: Coffee Other Caffeine Use: a cup of coffee or soda "once in a great while." - Recreational Drug Use Recreational Drug Use: No - Living Situation & Occupation Living situation: Reports: (), with Family (Parents, 3 kids) Occupation: Unemployed Review of Systems - Review of Systems Constitutional: Reports: Fever. Denies: Chills, Diaphoresis, Weakness Eyes: Reports: No Symptoms. Denies: Pain, Photophobia Ears: Reports: Dizziness (wtih positional changes). Denies: Pain, Tinnitus Nose: Reports: Clear Discharge (chronic allergic rhinitis contolled on antihistamines) Mouth/Throat: Reports: No Symptoms. Denies: Tongue Swelling, Pain, Throat Swelling, Difficulty Swallowing Respiratory: Reports: No Symptoms. Denies: Shortness of Breath, Wheezing, Pleuritic Chest Pain, Cough, Sputum Cardiovascular: Reports: No Symptoms. Denies: Chest Pain, Edema, Lightheadedness, Palpitations, Syncope GI/Abdominal: Reports: Abdominal Pain (see hpi), Constipation (chronic consipation), Decreased Appetite (present for the past few months), Nausea ( current nausea). Denies: Diarrhea, Vomiting Genitourinary: Reports: No Symptoms, Dysuria (chronic). Denies: Hematuria, Incontinence, Painful Urination, Vaginal Bleeding Musculoskeletal: Reports: Back Pain (chronic low back pain), Foot Pain (see hpi) . Denies: Leg Pain, Joint Pain, Joint Swelling Skin: Reports: No Symptoms. Denies: Cyanosis, Jaundice, Mottled, Pallor, Dryness, Bruising, Pruritis, Erythema Neurological: Reports: Dizziness (with positional changes), Headache (tension type). Denies: Numbness, Paresthesia, Syncope, Tingling, Weakness, Change in Speech, Gait Disturbance Psychiatric: Reports: Depression (chronic), Anxiety (chronic). Denies: Suicidal Ideation ED EXAM, GENERAL - Physical Exam Exam: See Below Exam Limited By: No Limitations General Appearance: Alert, Anxious, Moderate Distress Eye Exam: Bilateral Eye: EOMI, Normal Inspection, PERRL Ears: Normal External Exam, Normal Canal, Hearing Grossly Normal, Normal TMs Ear Exam: Bilateral Ear: Auricle Normal, Canal Normal, TM normal Nose: Normal Inspection, Normal Mucosa, No Blood Throat/Mouth: Normal Inspection, Normal Lips, Normal Teeth, Normal Gums, Normal Oropharynx, Normal Voice, No Airway Compromise Head: Atraumatic, Normocephalic Neck: Normal Inspection, Supple, Non-Tender, Full Range of Motion Respiratory/Chest: No Respiratory Distress, Lungs Clear, Normal Breath Sounds, No Accessory Muscle Use, Chest Non-Tender Cardiovascular: Normal Peripheral Pulses, Regular Rate, Rhythm, No Edema, No Gallop, No Murmur, No Rub Peripheral Pulses: 2+: Radial (L), Radial (R), Posterior Tibial (L), Posterior Tibial (R), Dorsalis Pedis (L), Dorsalis Pedis (R) GI/Abdominal: Normal Bowel Sounds, Soft, No Organomegaly, No Distention, No Abnormal Bruit, No Mass, Guarding (to deep palpation of RLL and RUQ), Tender ( Tender to palpation of RUQ and RLQ), Other (Negative mupheys sign, Negative rovsings sign, Negative psoas sign.). No: Rebound (Female) Exam: Deferred Rectal (Female) Exam: Deferred Back Exam: Normal Inspection, Full Range of Motion. No: CVA Tenderness (L), CVA Tenderness (R) Extremities: Normal Inspection, Normal Range of Motion, Non-Tender, No Pedal Edema, Normal Capillary Refill, Leg Pain, Other (Upon examination of RLE there was not appreciated swelling of the ankle or digits 1-5. Point tendernes of 3rd metatarsal to plantar and dorasal aspects. Passive abduction of digits 4-5 in resting position. Digits with full ROM but sever pain. ) Neurological: Alert, Oriented, CN II-XII Intact, Normal Cognition, Normal Gait, Normal Reflexes, No Motor/Sensory Deficits Psychiatric: Normal Affect, Normal Mood Skin Exam: Warm, Dry, Intact, Normal Color, No Rash Lymphatic: No Adenopathy Course - Vital Signs Last Recorded V/S: Last Vital Signs Temp 98.4 F 12/31/18 11:20 Pulse 130 H 12/31/18 11:20 Resp 18 12/31/18 11:20 BP 142/95 H 12/31/18 11:20 Pulse Ox 100 12/31/18 11:20 - Orders/Labs/Meds Orders: Active Orders 24 hr Category Date Time Status Peripheral IV Care [RC] . DIRECTED Care 12/31/18 12:16 Ordered Sodium Chloride 0.9% [Normal Saline] 1,000 ml Med 12/31/18 12:30 Ordered IV ASDIRECTED Sodium Chloride 0.9% [Saline Flush] Med 12/31/18 12:16 Ordered 10 ml FLUSH ASDIRECTED PRN Peripheral IV Insertion Adult [OM.PC] Routine Oth 12/31/18 12:16 Ordered Medication Orders Sodium Chloride (Normal Saline) 1,000 mls @ 999 mls/hr IV ASDIRECTED YAMIL Last Admin: 12/31/18 13:05 Dose: 999 mls/hr Sodium Chloride (Saline Flush) 10 ml FLUSH ASDIRECTED PRN PRN Reason: Keep Vein Open Last Admin: 12/31/18 13:00 Dose: 10 ml Meds: Medications Generic Name Dose Route Start Last Admin Trade Name Freq PRN Reason Stop Dose Admin Sodium Chloride 1,000 mls @ 999 mls/hr 12/31/18 12:30 12/31/18 13:05 Normal Saline IV 999 mls/hr ASDIRECTED YAMIL Administration Sodium Chloride 10 ml 12/31/18 12:16 12/31/18 13:00 Saline Flush FLUSH 10 ml ASDIRECTED PRN Administration Keep Vein Open Discontinued Medications Generic Name Dose Route Start Last Admin Trade Name Freq PRN Reason Stop Dose Admin Docusate Sodium 100 mg 12/31/18 13:54 Colace PO 12/31/18 13:55 ONETIME ONE Hydromorphone HCl 0.5 mg 12/31/18 12:18 12/31/18 13:03 Dilaudid IVPUSH 12/31/18 12:19 0.5 mg ONETIME ONE Administration Hydromorphone HCl 0.5 mg 12/31/18 13:54 Dilaudid IVPUSH 12/31/18 13:55 ONETIME ONE Promethazine HCl 12.5 mg/ 50.5 mls @ 100 mls/hr 12/31/18 12:16 12/31/18 13:18 Sodium Chloride IV 12/31/18 12:46 100 mls/hr ONETIME ONE Administration - Re-Assessments/Exams Free Text/Narrative Re-Assessment/Exam: 12/31/18 13:00 Pt presents with pain in her foot after having a traumatic incident last night with a door frame. She is tearful but cooperative and states she is in moderate to severe pain. She states her abdomen is painful on the right side with nausea. We will provide phenergan, IV fluids, pain management. 12/31/18 13:30 CR/Foot Comp Min 3 V Rt- No fracture or dislocation noted. Minimal spurring is noted at the attachment of Achilles tendon to the calcaneus. 12/31/18 13:54 Discussed with patient the results of her xray. Educated her on Rest Ice and Elevation. We will avoid NSAIDS for musculoskeletal pain due to surgery in 2 days. Discussed pain management and prompt follow up with primary care provider and how there was no reason for her to not follow through with her scheduled surgery. Her abdominal pain and nausea has improved. We discussed constipation and treatment options Pt was agreeable with home treatment with magnesium citrate one time and then routine miralax, hydration, and fiber. Pt was agrreable with the treatment plan. Departure - Departure Disposition: Home, Self-Care 01 Clinical Impression: Foot pain, right Constipation Qualifiers: Constipation type: drug induced constipation Qualified Code(s): K59.03 - Drug induced constipation - Discharge Information Instructions: Constipation, Adult, [id number] Referrals: Dolores Franklin MD [Primary Care Provider] - Forms: ED Department Discharge Additional Instructions: You have been evaluated in the ED for your right foot pain. Your x-ray demonstrated no fracture of your right foot. Please use ice as tolerated to the affected area. Please take your normal prescription pain medications for pain relief, you were also evaluated in the ED for abdominal pain, it is likely that you are a little bit constipated from these pain medications. Recommended good bowel regimen to include MiraLAX, and/or Colace to keep your stool soft. Recommend that you increase your fluid intake to also further promote a good bowel regimen. You may take one half bottle of magnesium citrate at home wait one hour if this does not provide good results you may repeat taking the next half. Please keep your appointment with Dr. Tong for for your already scheduled foot surgery. Please return to ED if your symptoms should change or worsen. - My Orders Last 24 Hours: My Active Orders 12/31/18 12:16 Peripheral IV Care [RC] . DIRECTED Sodium Chloride 0.9% [Saline Flush] 10 ml FLUSH ASDIRECTED PRN Peripheral IV Insertion Adult [OM.PC] Routine 12/31/18 12:30 Sodium Chloride 0.9% [Normal Saline] 1,000 ml IV ASDIRECTED - Assessment/Plan Last 24 Hours: My Active Orders 12/31/18 12:16 Peripheral IV Care [RC] . DIRECTED Sodium Chloride 0.9% [Saline Flush] 10 ml FLUSH ASDIRECTED PRN Peripheral IV Insertion Adult [OM.PC] Routine 12/31/18 12:30 Sodium Chloride 0.9% [Normal Saline] 1,000 ml IV ASDIRECTED <Ciara Harper - Last Filed: 12/31/18 14:14> ED HPI GENERAL MEDICAL PROBLEM - General Source of Information: Reports: Patient, RN Notes Reviewed History Limitations: Reports: No Limitations - History of Present Illness INITIAL COMMENTS - FREE TEXT/NARRATIVE: I have read and reviewed the student's HPI and exam and agree with Stefany Lopez PATammiS. Review of Systems - Review of Systems Review Of Systems: See Below Departure - Departure Time of Disposition: 14:07 Condition: Fair - Discharge Information *PRESCRIPTION DRUG MONITORING PROGRAM REVIEWED*: No *COPY OF PRESCRIPTION DRUG MONITORING REPORT IN PATIENT QIAN: No
--- NOTE | 2018-12-31 13:23 | CR ---
Right foot: Four views of the right foot were obtained. Comparison: No prior foot exam. Minimal spurring is noted at the attachment of the Achilles tendon to the calcaneus. No fracture, dislocation or other bony abnormality is seen. Impression: 1. Incidental calcaneal spur. 2. No additional abnormality is appreciated on right foot exam. Diagnostic code #2
[2018-12-31] MEDS ORDERED: Docusate Sodium 100 MG Cap PO ONE (13:54)
== END 2018-12-31 14:35 | disposition home or self-care (01) ==
LOC: JD.ED 11:15
DX: K59.03 Drug induced constipation (principal); M25.571 Pain in right ankle and joints of right foot; Z79.899 Other long term (current) drug therapy; F17.210 Nicotine dependence, cigarettes, uncomplicated
CPT/HCPCS: 73630; 96365; 96375; 96376; 99284; A9270; J1170; J2550; J7040; J7050

== ENCOUNTER 2019-01-16 09:59 | Emergency (ER) | payer MEDICAID ==
[2019-01-16 10:08] VITALS: BP 136/89
[2019-01-16] MEDS ORDERED: Acetaminophen/oxyCODONE 325-5 MG Tab PO ONE (10:32)
--- NOTE | 2019-01-16 10:42 | EDM.PDOC ---
ED HPI GENERAL MEDICAL PROBLEM - General Chief Complaint: Lower Extremity Injury/Pain Stated Complaint: SURGERY TWO WEEKS AGO/FELL ON FOOT Time Seen by Provider: 01/16/19 10:22 Source of Information: Reports: Patient, RN Notes Reviewed - History of Present Illness INITIAL COMMENTS - FREE TEXT/NARRATIVE: 33-year-old lady comes in with right foot pain. He tripped and fell down a set of steps. Had right foot surgery 2 weeks ago and states that she has a wire in her fourth toe. Was wearing her walking boot when this happened. However she has quite severe pain of the distal and lateral aspect of the right foot. She states she also twisted her left ankle pain is more mild to moderate. She does not feel her believe that she has a fracture problem with her left ankle. 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 No head and neck or chest discomfort. Right Foot Pain Score (Numeric/FACES): 6 - Related Data Allergies Allergy/AdvReac Type Severity Reaction Status Date / Time metronidazole [From Flagyl] Allergy Airway Verified 01/16/19 10:08 Tightness Penicillins Allergy Anaphylactic Verified 01/16/19 10:08 Shock metoclopramide [From Reglan] AdvReac Anxiety Verified 01/16/19 10:08 Home Meds: Home Meds Cetirizine [ZyrTEC] 10 tab PO DAILY 05/28/18 [History] Cyclobenzaprine [Flexeril] 10 mg PO TID PRN #15 tab 05/28/18 [Rx] Iron 65 mg PO BID 08/19/18 [History] Escitalopram Oxalate 20 mg PO DAILY 08/29/18 [History] Gabapentin [Neurontin] 300 mg PO BEDTIME 08/29/18 [History] traZODone HCl [Trazodone HCl] 100 mg PO BEDTIME 08/29/18 [History] oxyCODONE HCl/Acetaminophen [Percocet 5-325 mg Tablet] 5 - 325 mg PO Q6H PRN 09/09 [History] Ascorbate Calcium [Vitamin C] 500 mg PO BID 12/31/18 [History] Meloxicam 0 mg PO DAILY 12/31/18 [History] Pantoprazole Sodium 40 mg PO DAILY 12/31/18 [History] Past Medical History HEENT History: Reports: Impaired Vision Cardiovascular History: Reports: None Respiratory History: Reports: Asthma Other Respiratory History: Exercise induced asthma Gastrointestinal History: Reports: Other (See Below) Other Gastrointestinal History: Bowel obstruction following Genitourinary History: Reports: Renal Calculus Other Genitourinary History: reports vaginal bleeding x40 days 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 History: Reports: 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, Hyperemesis, Other (See Below) Other LINOLEUM MECHANIC History: endometrioma Musculoskeletal History: Reports: Back Pain, Chronic, Other (See Below) Other Musculoskeletal History: L-4 and L-5 disk disease Neurological History: Reports: CVA, Vertigo Other Neuro History: Stroke in 2007 Psychiatric History: Reports: Anxiety, Depression Endocrine/Metabolic History: Reports: Obesity/BMI 30+ Hematologic History: Reports: Anemia Immunologic History: Reports: None Oncologic (Cancer) History: Reports: Cervix Dermatologic History: Reports: None - Infectious Disease History Infectious Disease History: Reports: Chicken Pox, Influenza - Past Surgical History Head Surgeries/Procedures: Reports: None Female Surgical History: Reports: Section, Hysterectomy, Salpingo- Oophorectomy, Ureteral Stent Musculoskeletal Surgical History: Reports: Other (See Below) Other Musculoskeletal Surgeries/Procedures:: foot surgery Social & Family History - Family History Family Medical History: Noncontributory - Tobacco Use Smoking Status *Q: Never Smoker - Caffeine Use Caffeine Use: Reports: None Other Caffeine Use: a cup of coffee or soda "once in a great while." - Recreational Drug Use Recreational Drug Use: No - Living Situation & Occupation Living situation: Reports: (), with Family (Parents, 3 kids) Occupation: Unemployed Review of Systems - Review of Systems Review Of Systems: See Below Ears: Reports: No Symptoms Nose: Reports: No Symptoms Mouth/Throat: Reports: No Symptoms Respiratory: Denies: Shortness of Breath Cardiovascular: Denies: Chest Pain GI/Abdominal: Denies: Abdominal Pain, Nausea, Vomiting Musculoskeletal: Reports: Joint Pain (Right foot, left ankle) Skin: Reports: No Symptoms Neurological: Reports: No Symptoms ED EXAM, GENERAL - Physical Exam Exam: See Below General Appearance: Alert, Mild Distress Ears: Normal External Exam Nose: Normal Inspection Head: Atraumatic Neck: Supple Respiratory/Chest: No Respiratory Distress Extremities: Other (Right foot is wrapped in a clean gauze and Mario wrap tape dressing. There is the end of a Ivy wire protruding from the distal fourth toe, area of pain and tenderness right distal and lateral foot. Ankle nontender. Left ankle not swollen, very mild lateral tenderness. No visible deformity.) Course - Vital Signs Last Recorded V/S: Last Vital Signs Temp 98.5 F 01/16/19 10:05 Pulse 88 01/16/19 10:05 Resp 16 01/16/19 10:05 BP 136/89 01/16/19 10:05 Pulse Ox 100 01/16/19 10:05 - Orders/Labs/Meds Orders: Active Orders 24 hr Category Date Time Status Foot Comp Min 3V Rt [CR] Stat Exams 01/16/19 10:33 Taken Meds: Medications Discontinued Medications Generic Name Dose Route Start Last Admin Trade Name Freq PRN Reason Stop Dose Admin Oxycodone/Acetaminophen 1 tab 01/16/19 10:32 01/16/19 10:36 Percocet 325-5 Mg PO 01/16/19 10:33 1 tab ONETIME ONE Administration - Re-Assessments/Exams Free Text/Narrative Re-Assessment/Exam: 01/16/19 11:31 No fracture, the wire is straight on all 4 views. Departure - Departure Time of Disposition: 11:31 Disposition: Home, Self-Care 01 Condition: Fair Clinical Impression: Fall Qualifiers: Encounter type: initial encounter Qualified Code(s): W19.XXXA - Unspecified fall, initial encounter Contusion of right foot Qualifiers: Encounter type: initial encounter Qualified Code(s): S90.31XA - Contusion of right foot, initial encounter Left ankle sprain Qualifiers: Encounter type: initial encounter Involved ligament of ankle: unspecified ligament Qualified Code(s): S93.402A - Sprain of unspecified ligament of left ankle, initial encounter - Discharge Information Referrals: Dolores Franklin MD [Primary Care Provider] - Forms: ED Department Discharge Additional Instructions: Rest and elevate foot is much as possible, continue with current treatment plan and current medications as prescribed. - My Orders Last 24 Hours: My Active Orders 01/16/19 10:33 Foot Comp Min 3V Rt [CR] Stat - Assessment/Plan Last 24 Hours: My Active Orders 01/16/19 10:33 Foot Comp Min 3V Rt [CR] Stat
--- NOTE | 2019-01-16 11:56 | CR ---
Right foot: Four views of the right foot were obtained. Comparison: Prior foot exam of 12/31/18. Longitudinal pin is seen affixing the fourth toe. Alignment has been corrected from previous exam. Overlying bandage is seen. No fracture or other bony abnormality is noted. Impression: 1. Previous surgery. 2. Nothing acute is seen. Diagnostic code #2
== END 2019-01-16 11:49 | disposition home or self-care (01) ==
LOC: JD.ED 09:59
DX: S93.402A Sprain of unspecified ligament of left ankle, initial encounter (principal); S90.31XA Contusion of right foot, initial encounter; J45.909 Unspecified asthma, uncomplicated; F41.9 Anxiety disorder, unspecified; F32.9 Major depressive disorder, single episode, unspecified; W10.9XXA Fall (on) (from) unspecified stairs and steps, initial encounter; Z88.0 Allergy status to penicillin; Z88.8 Allergy status to other drugs, medicaments and biological substances; Z79.899 Other long term (current) drug therapy
CPT/HCPCS: 73630; 99283; A9270

== ENCOUNTER 2019-03-11 15:53 | Emergency (ER) | payer MEDICAID ==
--- NOTE | 2019-03-11 17:03 | EDM.PDOC ---
ED HPI GENERAL MEDICAL PROBLEM - General Chief Complaint: Genitourinary Problem Stated Complaint: BLOOD IN URINE AND STOOL Time Seen by Provider: 03/11/19 16:24 Source of Information: Reports: Patient, Old Records, RN Notes Reviewed History Limitations: Reports: No Limitations - History of Present Illness INITIAL COMMENTS - FREE TEXT/NARRATIVE: Patient is a 33-year-old female who presents to the ED for the evaluation of blood and urine. The patient notes that she had laboratory work done on Sunday , as a preop for a toe amputation surgery. She was called late Sunday afternoon and was told that her iron was low, or her lab work was off. The patient notes that she has a history of anxiety, and this did increase her anxiety at this time. She states that she did have some dark colored stools Sunday and Sunday but has since gotten better today and yesterday. The patient notes that she is on iron supplementation twice daily. And that her primary care provider did schedule a colonoscopy to rule out any potential GI bleed. A urinalysis was also obtained, and she states this was abnormal as well , she states it was cloudy and very red. She denies any dysuria, however she does have chronic abdominal pain and is having some discomfort below her bellybutton in radiates to her left side of her abdomen. She is unsure if this pain is much different, however she states that the burn is stronger. She does have a history of injury of a hysterectomy, with retention of a left-sided ovary. This ovary also has had multiple cysts in the past. The patient notes some hot/cold flashes, and some chest pain (which she attributes to her increased anxiety), but no shortness of breath. She states she did take her PRN propanolol for his anxiety symptoms. The patient notes a history of hemorrhoids as well. She states that she does still retain her appendix at this time, but denies any right-sided abdominal pain or rebound abdominal pain. Abdomen Pain Score (Numeric/FACES): 8 - Related Data Allergies Allergy/AdvReac Type Severity Reaction Status Date / Time metronidazole [From Flagyl] Allergy Airway Verified 03/11/19 16:24 Tightness Penicillins Allergy Anaphylactic Verified 03/11/19 16:24 Shock metoclopramide [From Reglan] AdvReac Anxiety Verified 03/11/19 16:24 Home Meds: Home Meds Cetirizine [ZyrTEC] 10 tab PO DAILY 05/28/18 [History] Cyclobenzaprine [Flexeril] 10 mg PO TID PRN #15 tab 05/28/18 [Rx] Iron 65 mg PO BID 08/19/18 [History] Escitalopram Oxalate 20 mg PO DAILY 08/29/18 [History] Gabapentin [Neurontin] 150 mg PO BEDTIME 08/29/18 [History] traZODone HCl [Trazodone HCl] 100 mg PO BEDTIME 08/29/18 [History] oxyCODONE HCl/Acetaminophen [Percocet 5-325 mg Tablet] 5 - 325 mg PO Q6H PRN 09/09 [History] Ascorbate Calcium [Vitamin C] 500 mg PO BID 12/31/18 [History] Meloxicam 7.5 mg PO DAILY 12/31/18 [History] Pantoprazole Sodium 40 mg PO DAILY 12/31/18 [History] Propranolol [Inderal] 20 mg PO DAILY PRN 03/11/19 [History] Past Medical History HEENT History: Reports: Impaired Vision Cardiovascular History: Reports: None Respiratory History: Reports: Asthma Other Respiratory History: Exercise induced asthma Gastrointestinal History: Reports: Other (See Below) Other Gastrointestinal History: Bowel obstruction following Genitourinary History: Reports: Renal Calculus Other Genitourinary History: reports vaginal bleeding x40 days 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: Reports: 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, Hyperemesis, Other (See Below) 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: endometrioma Musculoskeletal History: Reports: Back Pain, Chronic, Other (See Below) Other Musculoskeletal History: L-4 and L-5 disk disease Neurological History: Reports: CVA, Vertigo Other Neuro History: Stroke in 2007 Psychiatric History: Reports: Anxiety, Depression Endocrine/Metabolic History: Reports: Obesity/BMI 30+ Hematologic History: Reports: Anemia Immunologic History: Reports: None Oncologic (Cancer) History: Reports: Cervix Dermatologic History: Reports: None - Infectious Disease History Infectious Disease History: Reports: Chicken Pox, Influenza - Past Surgical History Head Surgeries/Procedures: Reports: None Female Surgical History: Reports: Section, Hysterectomy, Salpingo- Oophorectomy, Ureteral Stent Social & Family History - Family History Family Medical History: Noncontributory - Tobacco Use Smoking Status *Q: Former Smoker Used Tobacco, but Quit: Yes Month/Year Tobacco Last Used: 12/2018 Second Hand Smoke Exposure: No - Caffeine Use Caffeine Use: Reports: None Other Caffeine Use: a cup of coffee or soda "once in a great while." - Recreational Drug Use Recreational Drug Use: Yes Recreational Drug Type: Reports: Marijuana/Hashish Other Recreational Drug Type: Smoked 4 weeks ago while in [place] - Living Situation & Occupation Living situation: Reports: (), with Family (Parents, 3 kids) Occupation: Unemployed ED ROS GENERAL - Review of Systems Review Of Systems: See Below Constitutional: Reports: Other (hot/cold flashes) Respiratory: Reports: No Symptoms Cardiovascular: Reports: Chest Pain Endocrine: Reports: No Symptoms GI/Abdominal: Reports: Abdominal Pain (below belly button and to LLQ), Black Stool. Denies: Constipation, Diarrhea, Nausea, Vomiting : Reports: Hematuria (as reported by patient) Musculoskeletal: Reports: No Symptoms Skin: Reports: No Symptoms Neurological: Reports: No Symptoms Psychiatric: Reports: No Symptoms Hematologic/Lymphatic: Reports: Anemia Immunologic: Reports: No Symptoms ED EXAM, GI/ABD - Physical Exam Exam: See Below Exam Limited By: No Limitations General Appearance: Alert, WD/WN, No Apparent Distress, Anxious Eyes: Bilateral: Normal Appearance Throat/Mouth: Normal Inspection, Normal Lips, Normal Teeth, Normal Gums, Normal Oropharynx, Normal Voice, No Airway Compromise Head: Atraumatic, Normocephalic Respiratory/Chest: No Respiratory Distress, Lungs Clear, Normal Breath Sounds, No Accessory Muscle Use, Chest Non-Tender Cardiovascular: Normal Peripheral Pulses, Regular Rate, Rhythm, No Murmur GI/Abdominal Exam: Normal Bowel Sounds, Soft, No Distention, No Mass, Tender ( suprapubically, and into LLQ, not rebound tenderness) Rectal (Female) Exam: Normal Exam, Normal Rectal Tone, Heme - Stool, Hemorrhoids (2 external hemorrhoids, not actively bleeding at time of exam) Extremities: Normal Inspection, Normal Capillary Refill Neurological: Alert, Oriented, Normal Cognition, No Motor/Sensory Deficits Psychiatric: Normal Mood, Anxious, Tearful Skin Exam: Warm, Dry, Intact, Normal Color, No Rash Course - Vital Signs Last Recorded V/S: Last Vital Signs Temp 98.1 F 03/11/19 16:23 Pulse 109 H 03/11/19 16:23 Resp 26 H 03/11/19 16:23 BP 158/108 H 03/11/19 16:23 Pulse Ox 90 L 03/11/19 16:23 - Orders/Labs/Meds Labs: Laboratory Tests 03/11/19 03/11/19 03/11/19 Range/Units 16:50 17:05 17:05 WBC 7.87 (3.98-10.04) K/mm3 RBC 4.74 (3.98-5.22) M/mm3 Hgb 13.9 (11.2-15.7) gm/L Hct 42.5 (34.1-44.9) % MCV 89.7 (79.4-94.8) fl MCH 29.3 (25.6-32.2) pg MCHC 32.7 (32.2-35.5) g/dl RDW Std Deviation 43.0 (36.4-46.3) fL Plt Count 318 (182-369) K/mm3 MPV 8.8 L (9.4-12.3) fl Neutrophils % (Manual) 64 H (40-60) % Band Neutrophils % 1 (0-10) % Lymphocytes % (Manual) 31 (20-40) % Atypical Lymphs % 0 % Monocytes % (Manual) 4 (2-10) % Eosinophils % (Manual) 0 L (0.7-5.8) % Basophils % (Manual) 0 L (0.1-1.2) Platelet Estimate Adequate RBC Morph Comment Normal Sodium 138 (136-145) mEq/L Potassium 4.0 (3.5-5.1) mEq/L Chloride 103 (98-107) mEq/L Carbon Dioxide 26 (21-32) mEq/L Anion Gap 13.0 (5-15) BUN 15 (7-18) mg/dL Creatinine 0.9 (0.55-1.02) mg/dL Est Cr Clr Drug Dosing 84.01 mL/min Estimated GFR (MDRD) > 60 (>60) mL/min BUN/Creatinine Ratio 16.7 (14-18) Glucose 77 (74-106) mg/dL Calcium 9.4 (8.5-10.1) mg/dL Total Bilirubin 0.6 (0.2-1.0) mg/dL AST 21 (15-37) U/L ALT 40 (14-59) U/L Alkaline Phosphatase 55 (46-116) U/L Total Protein 7.9 (6.4-8.2) g/dl Albumin 4.1 (3.4-5.0) g/dl Globulin 3.8 gm/dL Albumin/Globulin Ratio 1.1 (1-2) Urine Color Yellow (Yellow) Urine Appearance Clear (Clear) Urine pH 6.0 (5.0-8.0) Ur Specific [place] 1.010 (1.005-1.030) Urine Protein Negative (Negative) Urine Glucose (UA) Negative (Negative) Urine Ketones Negative (Negative) Urine Occult Blood Negative (Negative) Urine Nitrite Negative (Negative) Urine Bilirubin Negative (Negative) Urine Urobilinogen 0.2 (0.2-1.0) Ur Leukocyte Esterase Negative (Negative) Urine RBC Not seen (0-5) /hpf Urine WBC Not seen (0-5) /hpf Ur Squamous Epith Cells 0-5 (0-5) /hpf Urine Bacteria Rare (FEW) /hpf Urine Mucus Not seen (FEW) /hpf - Re-Assessments/Exams Free Text/Narrative Re-Assessment/Exam: 03/11/19 17:11 Patient presents to the ED for evaluation of blood in her urine and stool. The patient is visibly anxious at time of exam, she requests nothing for her anxiety at this time however. I did perform a digital rectal exam, there is no blood in her stool present at time of exam. I did order a CBC, CMP, and UA for further evaluation of her symptoms. 03/11/19 17:50 Patient's labs have returned, and are within normal limits at today's visit. She does not have any blood in her stool, nor is there any blood present and urinalysis. I did reassess the patient at bedside, and she feels relieved that she has no blood in her stool. She will be discharged home with general recommendations. Departure - Departure Time of Disposition: 17:50 Disposition: Home, Self-Care 01 Condition: Fair Clinical Impression: Anxiety, LLQ pain - Discharge Information *PRESCRIPTION DRUG MONITORING PROGRAM REVIEWED*: No *COPY OF PRESCRIPTION DRUG MONITORING REPORT IN PATIENT QIAN: No Instructions: Abdominal Pain, Adult, Living With Anxiety Referrals: Dolores Franklin MD [Primary Care Provider] - Forms: ED Department Discharge Additional Instructions: You have been evaluated in the ED today for possible blood in your stool and urine. Your labs demonstrated no blood in your stool or urine at this visit. Your other blood work was within normal limits at this time. You are not anemic, there is no acute abnormality that was found at this ED visit. Some of your symptoms may have been worsened by your anxiety, from the news you received on Sunday about your toe surgery. Please take your previous prescriptions as previously directed by your Primary care provider, and follow up with her for any other concerns leading up to and regarding today's visit. Please return to the ED if your symptoms should change or worsen.
[2019-03-11 18:12] VITALS: BP 129/98
== END 2019-03-11 18:05 | disposition home or self-care (01) ==
LOC: JD.ED 15:53
DX: R10.32 Left lower quadrant pain (principal); F41.9 Anxiety disorder, unspecified; R31.9 Hematuria, unspecified; E66.9 Obesity, unspecified; Z90.710 Acquired absence of both cervix and uterus; Z88.0 Allergy status to penicillin; Z88.8 Allergy status to other drugs, medicaments and biological substances; Z79.899 Other long term (current) drug therapy; Z87.891 Personal history of nicotine dependence
CPT/HCPCS: 36415; 80053; 81001; 85007; 85027; 99282; 99284

== ENCOUNTER 2019-04-08 11:28 | Emergency (ER) | payer MEDICAID ==
[2019-04-08 11:39] VITALS: BP 161/113
[2019-04-08] MEDS ORDERED: Dextrose 5%-0.9% NaCl 1,000 ML IV SCH (12:00)
[2019-04-08] MEDS ORDERED: Ondansetron 4 MG/2 ML SDV IVPUSH ONE (12:01)
[2019-04-08] MEDS ORDERED: HYDROmorphone 1 MG/ML Syringe IVPUSH ONE ×2 (12:01→12:57)
--- NOTE | 2019-04-08 12:05 | EDM.PDOC ---
ED HPI GENERAL MEDICAL PROBLEM - General Chief Complaint: Abdominal Pain Stated Complaint: VOMITING Time Seen by Provider: 04/08/19 11:59 Source of Information: Reports: Patient History Limitations: Reports: No Limitations - History of Present Illness INITIAL COMMENTS - FREE TEXT/NARRATIVE: 33-year-old female presents to the ED with intractable nausea and vomiting starting at midnight. Patient is currently on clear fluids because of need for colonoscopy tomorrow. She has been taking her pain medication preceded by Phenergan 25mg tablet by half an hour but has vomited both times she is attempted to use her pain pills.Zofran sublingula never has worked for her. She has had recent surgery in her right foot and currently the pain in her foot is out of control because of inability keep down the pain medications. She's had 4 loose stools and is due for further medications by mouth at 1600 hrs. today to get her bowels cleaned out for colonoscopy tomorrow. Possibly vomiting just from the side effects of the oral narcotics. Emesis is bilious without blood. She states she doesn't have any significant abdominal pain more just a burning discomfort in the epigastrium and food pipe from vomiting up acid. Onset: Today Onset Date: 04/08/19 Onset Time: 00:00 Duration: Hour(s): Location: Reports: Abdomen (Intractable nausea and vomiting with burning sensation in esophagus and epigastrium.) Quality: Reports: Ache, Burning Severity: Moderate Improves with: Reports: None, Medication Context: Denies: Activity, Exercise, Lifting, Sick Contact, Trauma, Other Associated Symptoms: Reports: Loss of Appetite, Nausea/Vomiting, Weakness, Other (Lightheaded and dizzy. Increased severe pain in her right foot postoperative pain. This is because she can keep down her pain medications.). 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 BUILDER: Reports: Other (see below) (Has attempted to take Phenergan tablet and pain medicine twice overnight with vomiting on both occasions.) - Related Data Allergies Allergy/AdvReac Type Severity Reaction Status Date / Time metronidazole [From Flagyl] Allergy Airway Verified 04/08/19 14:09 Tightness Penicillins Allergy Anaphylactic Verified 04/08/19 14:09 Shock metoclopramide [From Reglan] AdvReac Anxiety Verified 04/08/19 14:09 Home Meds: Home Meds Cetirizine [ZyrTEC] 10 tab PO DAILY 05/28/18 [History] traZODone HCl [Trazodone HCl] 50 - 100 mg PO BEDTIME 08/29/18 [History] oxyCODONE HCl/Acetaminophen [Percocet 5-325 mg Tablet] 5 - 325 mg PO Q4H PRN 09/09 [History] Ascorbate Calcium [Vitamin C] 500 mg PO BID 12/31/18 [History] Pantoprazole Sodium 40 mg PO DAILY 12/31/18 [History] Propranolol [Inderal] 10 mg PO DAILY PRN 03/11/19 [History] Cyclobenzaprine [Flexeril] 5 - 10 mg PO TID PRN 04/08/19 [History] Dicyclomine [Bentyl] 20 mg PO Q6H PRN #5 tablet 04/08/19 [Rx] Ferrous Sulfate [Iron] 325 mg PO DAILY 04/08/19 [History] Fluticasone Propionate [Flonase] 2 spray NASBOTH DAILY 04/08/19 [History] Gabapentin [Neurontin] 300 mg PO BEDTIME 04/08/19 [History] Multivitamin [Poly-Vitamin] 1 tab PO DAILY 04/08/19 [History] Promethazine [Phenergan] 0.5 ml TOP ASDIRECTED #1 syringe 04/08/19 [Rx] Promethazine [Phenergan] 25 mg PO Q6H PRN 04/08/19 [History] Past Medical History HEENT History: Reports: Impaired Vision Cardiovascular History: Reports: None Respiratory History: Reports: Asthma Other Respiratory History: Exercise induced asthma Gastrointestinal History: Reports: GI Bleed, Other (See Below) Other Gastrointestinal History: Bowel obstruction following Genitourinary History: Reports: Renal Calculus Other Genitourinary History: reports vaginal bleeding x40 days 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: 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, Hyperemesis, Other (See Below) Other ENGINEERING DESIGNER History: endometrioma Musculoskeletal History: Reports: Back Pain, Chronic, Other (See Below) Other Musculoskeletal History: L-4 and L-5 disk disease Neurological History: Reports: CVA, Vertigo Other Neuro History: Stroke in 2007 Psychiatric History: Reports: Anxiety, Depression Endocrine/Metabolic History: Reports: Obesity/BMI 30+ Hematologic History: Reports: Anemia Immunologic History: Reports: None Oncologic (Cancer) History: Reports: Cervix Dermatologic History: Reports: None - Infectious Disease History Infectious Disease History: Reports: Chicken Pox, Influenza - Past Surgical History Head Surgeries/Procedures: Reports: None Female Surgical History: Reports: Section, Hysterectomy (And right oophorectomy. The left ovary is still present), Oophorectomy (Right ovary was removed at the time of hysterectomy), Ureteral Stent Musculoskeletal Surgical History: Reports: Other (See Below) (Hammertoe repair right foot 2. Surgery was performed 6 days ago on the third toe.) Social & Family History - Family History Family Medical History: Noncontributory - Tobacco Use Smoking Status *Q: Current Every Day Smoker Years of Tobacco use: 11 Packs/Tins Daily: 0.2 - Caffeine Use Caffeine Use: Reports: None Other Caffeine Use: a cup of coffee or soda "once in a great while." - Recreational Drug Use Recreational Drug Use: No - Living Situation & Occupation Living situation: Reports: (), with Family (Parents, 3 kids) Occupation: Unemployed ED ROS GENERAL - Review of Systems Review Of Systems: See Below Constitutional: Reports: Malaise, Weakness, Fatigue, Decreased Appetite. Denies : Fever, Chills HEENT: Reports: No Symptoms Respiratory: Reports: No Symptoms Cardiovascular: Reports: No Symptoms Endocrine: Reports: Fatigue GI/Abdominal: Reports: Abdominal Pain (More burning sensation in the epigastrium and lower food pipe from vomiting.), Diarrhea (Occasional cramps. Has had 4 loose stools overnight.) : Reports: Other Musculoskeletal: Reports: No Symptoms, Other (She is in a cast boot brace on her right leg due to hammertoe repair recently) Skin: Reports: No Symptoms Neurological: Reports: No Symptoms Psychiatric: Reports: Anxiety, Depression ED EXAM, GI/ABD - Physical Exam Exam: See Below Exam Limited By: No Limitations General Appearance: Alert, WD/WN, Mild Distress Eyes: Bilateral: Normal Appearance (No scleral icterus.) Throat/Mouth: Other (Mouth and tongue and lips are quite dry.) Head: Atraumatic, Normocephalic Neck: Normal Inspection, Supple, Non-Tender, Full Range of Motion. No: Lymphadenopathy (L), Lymphadenopathy (R) Respiratory/Chest: No Respiratory Distress, Lungs Clear, Normal Breath Sounds, No Accessory Muscle Use, Respiratory Distress (Tachypneic at 20/m.) Cardiovascular: Normal Peripheral Pulses, Regular Rate, Rhythm, No Edema, No Gallop, No Murmur, No Rub GI/Abdominal Exam: Soft (Bowel sounds are mildly hyperactive in all 4 quadrants. ), Non-Tender, No Organomegaly, No Abnormal Bruit, No Mass, Pelvis Stable, Abnormal Bowel Sounds Back Exam: Normal Inspection, Full Range of Motion. No: CVA Tenderness (L), CVA Tenderness (R) Extremities: Other (Right foot is a cast boot brace. Pulses were therefore not checked.) Neurological: Alert, Oriented, CN II-XII Intact, Normal Cognition Psychiatric: Normal Affect, Normal Mood Skin Exam: Warm, Dry, Intact, Normal Color, No Rash Course - Vital Signs Last Recorded V/S: Last Vital Signs Temp 36.2 C 04/08/19 11:36 Pulse 90 04/08/19 11:36 Resp 20 04/08/19 11:36 BP 161/113 H 04/08/19 11:36 Pulse Ox 96 04/08/19 11:36 - Orders/Labs/Meds Orders: Active Orders 24 hr Category Date Time Status Acetaminophen [Tylenol] Med 04/08/19 14:38 Once 650 mg PO NOW ONE Dextrose 5%-0.9% NaCl [Dextrose 5%-Normal Saline] 1,000 Med 04/08/19 12:00 Active ml IV ASDIRECTED Medication Orders Dextrose/Sodium Chloride (Dextrose 5%-Normal Saline) 1,000 mls @ 999 mls/hr IV ASDIRECTED YAMIL Last Admin: 04/08/19 12:24 Dose: 999 mls/hr Labs: Laboratory Tests 04/08/19 04/08/19 Range/Units 12:10 12:10 WBC 6.49 (3.98-10.04) K/mm3 RBC 4.31 (3.98-5.22) M/mm3 Hgb 12.7 (11.2-15.7) gm/L Hct 39.6 (34.1-44.9) % MCV 91.9 (79.4-94.8) fl MCH 29.5 (25.6-32.2) pg MCHC 32.1 L (32.2-35.5) g/dl RDW Std Deviation 43.5 (36.4-46.3) fL Plt Count 372 H (182-369) K/mm3 MPV 8.7 L (9.4-12.3) fl Neutrophils % (Manual) 71 H (40-60) % Band Neutrophils % 0 (0-10) % Lymphocytes % (Manual) 21 (20-40) % Atypical Lymphs % 0 % Monocytes % (Manual) 6 (2-10) % Eosinophils % (Manual) 2 (0.7-5.8) % Basophils % (Manual) 0 L (0.1-1.2) Platelet Estimate Adequate RBC Morph Comment Normal Sodium 140 (136-145) mEq/L Potassium 4.5 (3.5-5.1) mEq/L Chloride 107 (98-107) mEq/L Carbon Dioxide 23 (21-32) mEq/L Anion Gap 14.5 (5-15) BUN 13 (7-18) mg/dL Creatinine 0.9 (0.55-1.02) mg/dL Est Cr Clr Drug Dosing 84.01 mL/min Estimated GFR (MDRD) > 60 (>60) mL/min BUN/Creatinine Ratio 14.4 (14-18) Glucose 93 (74-106) mg/dL Calcium 8.8 (8.5-10.1) mg/dL Total Bilirubin 0.3 (0.2-1.0) mg/dL AST 14 L (15-37) U/L ALT 22 (14-59) U/L Alkaline Phosphatase 52 (46-116) U/L C-Reactive Protein < 0.2 (<1.0) mg/dL Total Protein 6.9 (6.4-8.2) g/dl Albumin 3.4 (3.4-5.0) g/dl Globulin 3.5 gm/dL Albumin/Globulin Ratio 1.0 (1-2) Meds: Medications Generic Name Dose Route Start Last Admin Trade Name Freq PRN Reason Stop Dose Admin Dextrose/Sodium Chloride 1,000 mls @ 999 mls/hr 04/08/19 12:00 04/08/19 12:24 Dextrose 5%-Normal Saline IV 999 mls/hr ASDIRECTED YAMIL Administration Discontinued Medications Generic Name Dose Route Start Last Admin Trade Name Freq PRN Reason Stop Dose Admin Hydromorphone HCl 1 mg 04/08/19 12:01 04/08/19 12:21 Dilaudid IVPUSH 04/08/19 12:02 1 mg ONETIME ONE Administration Hydromorphone HCl 1 mg 04/08/19 12:57 04/08/19 13:05 Dilaudid IVPUSH 04/08/19 12:58 1 mg ONETIME ONE Administration Promethazine HCl 25 mg/ Sodium 51 mls @ 100 mls/hr 04/08/19 12:58 04/08/19 13 :27 Chloride IV 04/08/19 13:28 100 mls/hr ONETIME ONE Administration Ondansetron HCl 4 mg 04/08/19 12:01 04/08/19 12:19 Zofran IVPUSH 04/08/19 12:02 4 mg ONETIME ONE Administration - Radiology Interpretation Free Text/Narrative:: 33-year-old female presents to the ED with nausea and vomiting since midnight. Patient is off food in preparation for colonoscopy tomorrow morning. She did take part of her prep yesterday and has had 4 loose stools since. She is currently on pain medication for her right foot post op hammertoe repair. She is in a cast boot brace on the right foot. She has been taking Phenergan half hour before taking the pain pills but still starts vomiting his symptoms the pain pills are in. I suspect the narcotic is causing the nausea and vomiting. He is mildly dry at this time with dry lips and tongue. Plan IV D5 normal saline at open. Will give Dilaudid 1 mg IV with Zofran 4 mg IV as she is allergic to Reglan. Routine labs will be collected. - Re-Assessments/Exams Free Text/Narrative Re-Assessment/Exam: 04/08/19 12:58 patient is still having significant nausea and severe pain in her right foot. Her right hammertoe was repaired 6 days ago. Having difficulty getting control of the pain. Will repeat Dilaudid 1 mg IV and hang Phenergan 25 mg IV over 15 minutes as well. 04/08/19 13:34 Labs reveal a normal white count at 6.49. Differential is 71% neutrophils with no band cells. Hemoglobin is 12.7 with hematocrit of 39.6. Platelet count is 372,000. 140 with potassium of 4.5. Chloride is 107 with a bicarbonate 23. And a gap is 14.5. BUN is 13 with a creatinine of 0.9. Estimated GFR is greater than 60. Glucose is 93 with a calcium of 8.8. Liver function is normal. CRP is less than 0.2. Total protein is 6.9 with an albumin fraction of 3.4. 04/08/19 14:43 Nausea and abdominal pain is better. Foot pain is still significant. Will try Tylenol 975mg by mouth for pain relief. I'm going to send her home with a prescription for Phenergan gel that [facility] and Bentyl 20 mg by mouth every 4-6 hours as necessary for relief of abdominal pain. Departure - Departure Time of Disposition: 14:45 Disposition: Home, Self-Care 01 Condition: Fair Clinical Impression: Nausea and vomiting Qualifiers: Vomiting type: bilious vomiting Qualified Code(s): R11.14 - Bilious vomiting Adverse effects of medication Qualifiers: Encounter type: initial encounter Qualified Code(s): T50.905A - Adverse effect of unspecified drugs, medicaments and biological substances, initial encounter - Discharge Information *PRESCRIPTION DRUG MONITORING PROGRAM REVIEWED*: No *COPY OF PRESCRIPTION DRUG MONITORING REPORT IN PATIENT QIAN: No Prescriptions: Dicyclomine [Bentyl] 20 mg PO Q6H PRN #5 tablet PRN Reason: Abdominal cramps/diarrhea Promethazine [Phenergan] 0.5 ml TOP ASDIRECTED #1 syringe Referrals: Dolores Franklin MD [Primary Care Provider] - Forms: ED Department Discharge Additional Instructions: Evaluation the emergency room in regards to persistent nausea and vomiting associated with diffuse abdominal pain and right foot pain. It is suspect that the narcotic analgesic being used for foot pain is causing precipitate nausea and vomiting on empty stomach as you are in preparation for upper GI endoscopy and lower GI endoscopy tomorrow. You're treated with a liter of IV fluids for rehydration in the ED and treated with Dilaudid 1 mg 2 doses for pain relief and Phenergan 25 mg IV for nausea relief as Zofran 4 mg IV did not help at all. Did not show anything else abnormal. Suggest continuing treatment with medications Phenergan gel to be applied via gel to both wrists to also control nausea and vomiting. Resume pain medications as able. Plan to continue to take your GoLYTELY at 4:00 today as planned but since she already had 4 loose bowel movements today you he can usually stop taking the cleanse once the stool this coming out clear. - My Orders Last 24 Hours: My Active Orders 04/08/19 12:00 Dextrose 5%-0.9% NaCl [Dextrose 5%-Normal Saline] 1,000 ml IV ASDIRECTED 04/08/19 14:38 Acetaminophen [Tylenol] 650 mg PO NOW ONE - Assessment/Plan Last 24 Hours: My Active Orders 04/08/19 12:00 Dextrose 5%-0.9% NaCl [Dextrose 5%-Normal Saline] 1,000 ml IV ASDIRECTED 04/08/19 14:38 Acetaminophen [Tylenol] 650 mg PO NOW ONE
[2019-04-08] MEDS ORDERED: Promethazine 25 MG in Sodium Chloride 0.9% 50 ML IV ONE (12:58)
[2019-04-08] MEDS ORDERED: Acetaminophen 325 MG Tab PO ONE ×2 (14:38→14:44)
== END 2019-04-08 15:02 | disposition home or self-care (01) ==
LOC: JD.ED 11:28
DX: R11.14 Bilious vomiting (principal); T50.905A Adverse effect of unspecified drugs, medicaments and biological substances, initial encounter; E66.9 Obesity, unspecified; D64.9 Anemia, unspecified; F17.210 Nicotine dependence, cigarettes, uncomplicated; Z86.73 Personal history of transient ischemic attack (TIA), and cerebral infarction without residual deficits; Z90.710 Acquired absence of both cervix and uterus; Z88.0 Allergy status to penicillin; Z88.8 Allergy status to other drugs, medicaments and biological substances; Z79.899 Other long term (current) drug therapy
CPT/HCPCS: 36415; 80053; 85007; 85027; 86140; 96361; 96365; 96375; 96376; 99283; A9270; J1170; J2405; J2550; J7042; J7050; 99284

== ENCOUNTER 2019-04-09 07:23 | Day surgery (SDC) | payer MEDICAID ==
[~2019-04-09 07:23] MED LIST changes: -Dexamethasone 4 MG/ML SDV ONE; -HYDROmorphone 0.5 MG/0.5 ML Syringe ONE; -Ketorolac 30 MG/ML SDV ONE; -Midazolam 1 MG/ML 2 ML SDV ONE; -Ondansetron 4 MG/2 ML SDV ONE; -Propofol 200 MG/20 ML SDV ONE; -Rocuronium 50 MG/5 ML Vial ONE; -ceFAZolin 1 GM Vial ONE; -fentaNYL 250 MCG/5 ML SDV ONE
[2019-04-09] MEDS ORDERED: Ondansetron 4 MG/2 ML SDV ONE (07:53)
[2019-04-09] MEDS ORDERED: Lidocaine 1% 4 ML ONE (07:59)
[2019-04-09] MEDS ORDERED: Propofol 200 MG/20 ML SDV ONE ×3 (08:00→09:03)
[2019-04-09] MEDS ORDERED: Midazolam 1 MG/ML 2 ML SDV ONE ×2 (08:01→08:54)
--- NOTE | 2019-04-09 08:02 | PCM.PREANE ---
Preanesthetic Assessment - Procedure Proposed Procedure: diagnositic EGD and diagnositic colonoscopy - Anesthesia/Transfusion/Family Hx Anesthesia History: Prior Anesthesia Without Reaction Family History of Anesthesia Reaction: No Transfusion History: No Prior Transfusion(s) Intubation History: Unknown - Review of Systems General: No Symptoms Pulmonary: Other (exercise induced asthma= no inhaler use in last 6 months ) Cardiovascular: No Symptoms Gastrointestinal: Nausea, Other (states some blood in stool ) Neurological: Other (stroke history in 2007 numbness/tingling left side of body occasionally ) Other: Reports: None, Depression, Anxiety - Physical Assessment NPO Status Date: 04/08/19 NPO Status Time: 04:30 Pulse: 76 O2 Sat by Pulse Oximetry: 98 Respiratory Rate: 20 Blood Pressure: 143/102 Temperature: 37.1 C Height: 1.68 m Weight: 91 kg ASA Class: 2 Mental Status: Alert & Oriented x3 Airway Class: Mallampati = 1 Dentition: Reports: Normal Dentition Thyro-Mental Finger Breadths: 3 Mouth Opening Finger Breadths: 5 ROM/Head Extension: Full Lungs: Clear to Auscultation, Normal Respiratory Effort Cardiovascular: Regular Rate, Regular Rhythm - Allergies Allergies/Adverse Reactions: Allergies Allergy/AdvReac Type Severity Reaction Status Date / Time metronidazole [From Flagyl] Allergy Airway Verified 04/08/19 14:09 Tightness Penicillins Allergy Anaphylactic Verified 04/08/19 14:09 Shock metoclopramide [From Reglan] AdvReac Anxiety Verified 04/08/19 14:09 - Blood Blood Available: No - Anesthesia Plan Pre-Op Medication Ordered: None Beta Ralph: Propranolol (takes at home BID for anxiety did not take this AM) - Acknowledgements Anesthesia Type Planned: MAC Pt an Appropriate Candidate for the Planned Anesthesia: Yes Alternatives and Risks of Anesthesia Discussed w Pt/Guardian: Yes Pt/Guardian Understands and Agrees with Anesthesia Plan: Yes Additional Comments: patient nauseated this morning but stating she wants to go through with the schedule procedure. ordered iv zofran, scopalamine patch and IV tylenol as patient stating unable to oral pain medicines due to nausea and not eating, but had right foot surgery last week pain 9/10. 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: endometrioma Musculoskeletal History: Reports: Back Pain, Chronic, Other (See Below) Other Musculoskeletal History: L-4 and L-5 disk disease Neurological History: Reports: CVA, Vertigo Other Neuro History: Stroke in 2007 Psychiatric History: Reports: Anxiety, Depression Endocrine/Metabolic History: Reports: Obesity/BMI 30+ Hematologic History: Reports: Anemia Immunologic History: Reports: None Oncologic (Cancer) History: Reports: Cervix Dermatologic History: Reports: None - Infectious Disease History Infectious Disease History: Reports: Chicken Pox, Influenza - Past Surgical History Head Surgeries/Procedures: Reports: None Female Surgical History: Reports: Section, Hysterectomy (And right oophorectomy. The left ovary is still present), Oophorectomy (Right ovary was removed at the time of hysterectomy), Ureteral Stent Musculoskeletal Surgical History: Reports: Other (See Below) (Hammertoe repair right foot 2. Surgery was performed 6 days ago on the third toe.) - SUBSTANCE USE Smoking Status *Q: Current Every Day Smoker Recreational Drug Use History: No - HOME MEDS Home Medications: Home Meds Cetirizine [ZyrTEC] 10 tab PO DAILY 05/28/18 [History] traZODone HCl [Trazodone HCl] 50 - 100 mg PO BEDTIME 08/29/18 [History] oxyCODONE HCl/Acetaminophen [Percocet 5-325 mg Tablet] 5 - 325 mg PO Q4H PRN 09/09 [History] Ascorbate Calcium [Vitamin C] 500 mg PO BID 12/31/18 [History] Pantoprazole Sodium 40 mg PO DAILY 12/31/18 [History] Propranolol [Inderal] 10 mg PO DAILY PRN 03/11/19 [History] Cyclobenzaprine [Flexeril] 5 - 10 mg PO TID PRN 04/08/19 [History] Dicyclomine [Bentyl] 20 mg PO Q6H PRN #5 tablet 04/08/19 [Rx] Ferrous Sulfate [Iron] 325 mg PO DAILY 04/08/19 [History] Fluticasone Propionate [Flonase] 2 spray NASBOTH DAILY 04/08/19 [History] Gabapentin [Neurontin] 300 mg PO BEDTIME 04/08/19 [History] Multivitamin [Poly-Vitamin] 1 tab PO DAILY 04/08/19 [History] Promethazine [Phenergan] 0.5 ml TOP ASDIRECTED #1 syringe 04/08/19 [Rx] Promethazine [Phenergan] 25 mg PO Q6H PRN 04/08/19 [History] - CURRENT (IN HOUSE) MEDS Current Meds: Current Medications Lactated Ringer's (Ringers, Lactated) 1,000 mls @ 125 mls/hr IV ASDIRECTED YAMIL Stop: 04/09/19 23:00 Lidocaine/Sodium Bicarbonate (Buffered Lidocaine 1% In Ns 8.4%) 0.25 ml IDERM ONETIME PRN PRN Reason: Prior to IV Start Stop: 04/09/19 18:00 Sodium Chloride (Saline Flush) 10 ml FLUSH ASDIRECTED PRN PRN Reason: Keep Vein Open Stop: 04/09/19 18:00
[2019-04-09] MEDS ORDERED: Scopolamine 1.5 MG Transdermal Patch TOP ONE (08:07)
[2019-04-09] MEDS ORDERED: Ondansetron 4 MG/2 ML SDV IVPUSH ONE (08:08)
[2019-04-09] MEDS ORDERED: Ketamine 500 mg/10 ML MDV ONE (08:56)
[2019-04-09] MEDS ORDERED: fentaNYL 100 MCG/2 ML SDV IVPUSH PRN (09:30)
[2019-04-09] MEDS ORDERED: Ketorolac 30 MG/ML SDV IVPUSH ONE (09:31)
--- NOTE | 2019-04-09 09:36 | PCM48HPAN ---
Post Anesthesia Note - EVALUATION WITHIN 48HRS OF ANESTHETIC Vital Signs in Normal Range: Yes Patient Participated in Evaluation: Yes Respiratory Function Stable: Yes Airway Patent: Yes Cardiovascular Function Stable: Yes Hydration Status Stable: Yes Pain Control Satisfactory: Yes (orders in, patient to take prescribed oral pain meds at home ) Nausea and Vomiting Control Satisfactory: Yes Mental Status Recovered: Yes Pulse Rate: 76 Resp Rate: 20 Temperature: 37.1 C Blood Pressure: 143/102
[2019-04-09] MEDS ORDERED: Ketorolac 30 MG/ML SDV IM ONE (10:00)
[2019-04-09 10:40] VITALS: BP 154/98
--- NOTE | 2019-04-09 14:19 | OR ---
DATE OF OPERATION: 04/09/2019 SURGEON: Joshua Andujar MD PREOPERATIVE DIAGNOSIS: Hematochezia, melena, epigastric abdominal pain, strong family history of colon cancer, nausea and vomiting. POSTOPERATIVE DIAGNOSIS: Hematochezia, melena, epigastric abdominal pain, strong family history of colon cancer, nausea and vomiting. OPERATION PERFORMED: Diagnostic esophagogastroduodenoscopy and colonoscopy with biopsies. ANESTHESIA: Monitored anesthesia. PATHOLOGY: 1. Duodenum. 2. Antrum. 3. Body. 4. Fundus. 5. GE junction. 6. Distal esophagus. FINDINGS: She had some mild gastritis on my gross examination. I found no ulcers. She has no hiatal hernia. The colonoscopy was redundant and somewhat floppy, but did not demonstrate polyps or mucosal lesions which would lead to gastrointestinal bleeding. ESTIMATED BLOOD LOSS: Minimal. DISPOSITION: Stable at the end of the procedure. INDICATION: The patient is a 33-year-old female with chronic iron deficiency anemia, which was undiagnosed. She also reports a burning sensation in her lower abdomen as well as acid peptic disease. While in the office, she noted she had 2 uncles who from colon cancer in their 30s and multiple colon polyps in close relatives in their 40s. The patient admits to constipation. She has a chronic narcotic user. In the office, she reported hematochezia followed by melena in an alternating pattern. She was offered diagnostic EGD and colonoscopy. She was fully informed of the major risks, benefits, and alternatives. The risks include, but are not limited to, perforation of the GI tract, bleeding, the risks of anesthesia, the possibility of further surgery, and many others. She gave informed consent. DESCRIPTION OF PROCEDURE: The patient was brought to the gastro suite and placed in the left lateral decubitus position. A bite block was placed. She was given monitored anesthesia. The scope was passed uneventfully into the proximal esophagus. The scope was advanced to the stomach with gentle forward pressure keeping the lumen in view at all times. I flexed the scope into the 4th portion of the duodenum. I biopsied in 4 locations in the duodenum. I then withdrew the scope into the stomach. I surveyed the stomach. I found some mild gastritis in the antrum, but found no ulcerations. The scope was flexed identifying the GE junction. There was no hiatal hernia. I biopsied the antrum, body, and fundus testing for H. pylori. I withdrew the scope into the esophagus and biopsied the GE junction and distal esophagus. A thorough investigation failed to demonstrate mucosal lesions or Bess esophagus in the esophagus. I evacuated the air from the stomach and withdrew the scope in its entirety. We then turned our attention of the colonoscopy. The digital rectal exam was performed with copious lubrication. This was unremarkable other than some mild external hemorrhoids. The scope was advanced into the rectum, keeping the lumen in view at all times. She had quite a redundant and floppy colon, but eventually I was able to pass the scope to the cecum. The cecum was documented photographically illustrating the ileocecal valve. I thoroughly investigated the mucosa of the colon from the cecum back to the anus in an exam lasting 7 minutes. A thorough, careful examination of the entirety of the mucosa failed to demonstrate any polyps, mucosal lesions, or diverticulosis. As the scope was withdrawn, air was evacuated. At the end of the procedure, the scope was completely removed. I noted an excellent bowel prep during the entire procedure. She was awakened from anesthesia and moved to recovery in stable condition. PLAN: I will see her in the office after pathology has returned. MMODAL /[id number]
== END 2019-04-09 10:25 | disposition home or self-care (01) ==
LOC: JD.SDS 07:23
PROVIDERS: ATTEND Surgery
DX: K29.51 Unspecified chronic gastritis with bleeding (principal); K64.4 Residual hemorrhoidal skin tags; K21.9 Gastro-esophageal reflux disease without esophagitis; D50.9 Iron deficiency anemia, unspecified; R11.2 Nausea with vomiting, unspecified; Z80.0 Family history of malignant neoplasm of digestive organs; I63.9 Cerebral infarction, unspecified; I10 Essential (primary) hypertension; F41.9 Anxiety disorder, unspecified; F32.9 Major depressive disorder, single episode, unspecified; J45.990 Exercise induced bronchospasm; M51.26 Other intervertebral disc displacement, lumbar region; F17.210 Nicotine dependence, cigarettes, uncomplicated; E66.9 Obesity, unspecified; Z68.30 Body mass index [BMI] 30.0-30.9, adult; Z88.0 Allergy status to penicillin; Z88.8 Allergy status to other drugs, medicaments and biological substances; Z79.899 Other long term (current) drug therapy
CPT/HCPCS: 43239; 45378; A9270; J0131; J1885; J2001; J2250; J2405; J2704; J3010; J7120; 00813

== ENCOUNTER 2019-04-21 23:20 | Emergency (ER) | payer MEDICAID ==
[2019-04-22] VITALS: BP 142/94
[2019-04-22] MEDS ORDERED: Promethazine 25 MG/ML SDV IM ONE (00:27)
[2019-04-22] MEDS ORDERED: Dicyclomine 20 MG/2 ML SDV IM ONE (00:28)
--- NOTE | 2019-04-22 02:57 | EDM.PDOC ---
ED HPI GENERAL MEDICAL PROBLEM - General Chief Complaint: Abdominal Pain Stated Complaint: ABDOMINAL PAIN Time Seen by Provider: 04/22/19 02:23 Source of Information: Reports: Patient, RN Notes Reviewed History Limitations: Reports: No Limitations - History of Present Illness INITIAL COMMENTS - FREE TEXT/NARRATIVE: The patient states that she has had left-sided abdominal cramps and watery diarrhea since 04/03/2019. She underwent a colonoscopy on 04/09/[address] Joshua Andujar. The patient states that the purpose of the colonoscopy was because of some abnormal blood work. The patient states that the colonoscopy was unremarkable, however, random biopsies were taken, which subsequently showed H. pylori. The patient was therefore started on Levaquin and sucralfate, and her pantoprazole was increased from once a day to twice a day. The patient presents with nausea. She states that she was seen in this ED and prescribed promethazine cream, which helped, but she has since run out. She states that Zofran doesn't work, and that Reglan gives her an itchy rash. Review of prior medical records finds that the patient was seen in this ED on , the day before her colonoscopy, for intractable nausea and non-bloody vomiting. She was prepping for the colonoscopy. She was on oxycodone for pain relief following right foot surgery, but her pain was out of control because she could not keep her oral medicines down. A CBC, CMP, and CRP were unremarkable. She was given Dilaudid, promethazine, and Zofran in the ED, then discharged home with a prescription for promethazine gel. The patient's PCP is Dr. Dolores Franklin. Her Well Site Drilling Engineer is Dr. Sukhdeep Aguilar. Abdominal Pain Score (Numeric/FACES): 8 - Related Data Allergies Allergy/AdvReac Type Severity Reaction Status Date / Time metronidazole [From Flagyl] Allergy Airway Verified 04/22/19 00:00 Tightness Penicillins Allergy Anaphylactic Verified 04/22/19 00:00 Shock metoclopramide [From Reglan] AdvReac Anxiety Verified 04/22/19 00:00 Home Meds: Home Meds Cetirizine [ZyrTEC] 10 tab PO DAILY 05/28/18 [History] traZODone HCl [Trazodone HCl] 50 - 100 mg PO BEDTIME 08/29/18 [History] oxyCODONE HCl/Acetaminophen [Percocet 5-325 mg Tablet] 5 - 325 mg PO Q4H PRN 09/09 [History] Ascorbate Calcium [Vitamin C] 500 mg PO DAILY 12/31/18 [History] Pantoprazole Sodium 40 mg PO BID 12/31/18 [History] Propranolol [Inderal] 10 mg PO BID PRN 03/11/19 [History] Cyclobenzaprine [Flexeril] 5 - 10 mg PO TID PRN 04/08/19 [History] Dicyclomine [Bentyl] 20 mg PO Q6H PRN #5 tablet 04/08/19 [Rx] Ferrous Sulfate [Iron] 325 mg PO DAILY 04/08/19 [History] Fluticasone Propionate [Flonase] 2 spray NASBOTH DAILY 04/08/19 [History] Gabapentin [Neurontin] 300 mg PO BEDTIME 04/08/19 [History] Multivitamin [Poly-Vitamin] 1 tab PO DAILY 04/08/19 [History] Promethazine [Phenergan] 0.5 ml TOP ASDIRECTED #1 syringe 04/08/19 [Rx] Promethazine [Phenergan] 25 mg PO Q6H PRN 04/08/19 [History] Dicyclomine [Bentyl] 1 tab PO Q6H PRN #5 tablet 04/22/19 [Rx] Escitalopram Oxalate 20 mg PO DAILY 04/22/19 [History] Levofloxacin 500 mg PO DAILY 04/22/19 [History] Meloxicam 15 mg PO DAILY 04/22/19 [History] Promethazine [Phenergan] 0.5 ml TOP ASDIRECTED PRN #1 syringe 04/22/19 [Rx] Sennosides [Senna] 2 tab PO BEDTIME 04/22/19 [History] Sucralfate 1 gm PO QID 04/22/19 [History] Sulfamethoxazole/Trimethoprim [Sulfamethoxazole-Tmp Ds Tablet] 1 tab PO BID 12/10 [History] Past Medical History HEENT History: Reports: Impaired Vision Respiratory History: Reports: Asthma (suspected, not tested, exercise-induced) Gastrointestinal History: Reports: GI Bleed, Other (See Below) (Bowel obstruction following 2007) Genitourinary History: Reports: Renal Calculus 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 CALL ORDER CLERK History: Reports: 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 (laparoscopy-proven), Other (See Below) ( Ovarian cysts) Musculoskeletal History: Reports: Back Pain, Chronic (due to lumbar disc disease ) Neurological History: Denies: CVA Psychiatric History: Reports: Anxiety, Depression Endocrine/Metabolic History: Reports: Obesity/BMI 30+ Hematologic History: Reports: Anemia Oncologic (Cancer) History: Reports: Cervix - Infectious Disease History Infectious Disease History: Reports: Chicken Pox, Influenza - Past Surgical History HEENT Surgical History: Reports: Oral Surgery (wisdom teeth extraction) Female Surgical History: Reports: Section (x 3), Hysterectomy ( partial), Oophorectomy (right), Ureteral Stent, Other (See Below) (Ovarian cystectomy. Laparoscopy for endometrioma.) Musculoskeletal Surgical History: Reports: Other (See Below) (Right hammertoe x 2) Social & Family History - Family History Family Medical History: Noncontributory - Tobacco Use Smoking Status *Q: Current Every Day Smoker Years of Tobacco use: 11 Packs/Tins Daily: 0.2 Packs/Tins Daily Comment: Down from /2 ppd - Caffeine Use Caffeine Use: Reports: Coffee Other Caffeine Use: a cup of coffee or soda "once in a great while." - Alcohol Use Alcohol Use History: Yes Alcohol Use Frequency: Rarely - Recreational Drug Use Recreational Drug Use: Yes Drug Use in Last 12 Months: No Recreational Drug Type: Reports: Marijuana/Hashish (smokes on occasion, last around January 2019) - Living Situation & Occupation Living situation: Reports: (), with Family (3 kids) Occupation: Employed ED ROS GENERAL - Review of Systems Review Of Systems: ROS reveals no pertinent complaints other than HPI. ED EXAM, GI/ABD - Physical Exam Exam: See Below Exam Limited By: No Limitations General Appearance: Alert, WD/WN, No Apparent Distress (The patient was examined after she had received Phenergan and Bentyl, with resolution of her symptoms) Eyes: Bilateral: Normal Appearance, EOMI Ears: Normal External Exam, Hearing Grossly Normal Nose: Normal Inspection Throat/Mouth: Normal Inspection, Normal Lips, Normal Voice, No Airway Compromise Head: Atraumatic, Normocephalic Neck: Normal Inspection, Full Range of Motion Respiratory/Chest: No Respiratory Distress, Lungs Clear, Normal Breath Sounds, No Accessory Muscle Use Cardiovascular: Normal Peripheral Pulses, Regular Rate, Rhythm, No Gallop, No JVD, No Murmur, No Rub GI/Abdominal Exam: Normal Bowel Sounds, Soft, Non-Tender (including the left abdomen), No Organomegaly, No Distention, No Abnormal Bruit, No Mass (Female) Exam: Deferred Rectal (Female) Exam: Deferred Back Exam: Normal Inspection, Full Range of Motion, NT Extremities: Normal Inspection, Normal Range of Motion, No Pedal Edema, Normal Capillary Refill Neurological: Alert, Oriented, Normal Cognition, No Motor/Sensory Deficits Psychiatric: Normal Affect Skin Exam: Warm, Dry, Intact, Normal Color, No Rash Course - Vital Signs Last Recorded V/S: Last Vital Signs Temp 36.4 C 04/21/19 23:52 Pulse 109 H 04/21/19 23:52 Resp 18 04/21/19 23:52 BP 142/94 H 04/21/19 23:52 Pulse Ox 100 04/21/19 23:52 - Orders/Labs/Meds Labs: Laboratory Tests 04/22/19 04/22/19 Range/Units 00:45 00:45 WBC 11.02 H (3.98-10.04) K/mm3 RBC 4.39 (3.98-5.22) M/mm3 Hgb 13.0 (11.2-15.7) gm/L Hct 39.7 (34.1-44.9) % MCV 90.4 (79.4-94.8) fl MCH 29.6 (25.6-32.2) pg MCHC 32.7 (32.2-35.5) g/dl RDW Std Deviation 43.3 (36.4-46.3) fL Plt Count 363 (182-369) K/mm3 MPV 8.8 L (9.4-12.3) fl Neut % (Auto) 62.3 (34.0-71.1) % Lymph % (Auto) 23.1 (19.3-51.7) % [place] % (Auto) 9.3 (4.7-12.5) % Eos % (Auto) 4.4 (0.7-5.8) Baso % (Auto) 0.5 (0.1-1.2) % Neut # (Auto) 6.87 H (1.56-6.13) K/mm3 Lymph # (Auto) 2.55 (1.18-3.74) K/mm3 [place] # (Auto) 1.02 H (0.24-0.36) K/mm3 Eos # (Auto) 0.48 H (0.04-0.36) K/mm3 Baso # (Auto) 0.06 (0.01-0.08) K/mm3 Sodium 136 (136-145) mEq/L Potassium 3.7 (3.5-5.1) mEq/L Chloride 104 (98-107) mEq/L Carbon Dioxide 20 L (21-32) mEq/L Anion Gap 15.7 H (5-15) BUN 22 H (7-18) mg/dL Creatinine 0.9 (0.55-1.02) mg/dL Est Cr Clr Drug Dosing 84.01 mL/min Estimated GFR (MDRD) > 60 (>60) mL/min BUN/Creatinine Ratio 24.4 H (14-18) Glucose 92 (74-106) mg/dL Calcium 8.9 (8.5-10.1) mg/dL Magnesium 1.7 L (1.8-2.4) mg/dl Total Bilirubin 0.7 (0.2-1.0) mg/dL AST 19 (15-37) U/L ALT 20 (14-59) U/L Alkaline Phosphatase 56 (46-116) U/L Total Protein 7.2 (6.4-8.2) g/dl Albumin 3.9 (3.4-5.0) g/dl Globulin 3.3 gm/dL Albumin/Globulin Ratio 1.2 (1-2) Meds: Medications Discontinued Medications Generic Name Dose Route Start Last Admin Trade Name Freq PRN Reason Stop Dose Admin Dicyclomine HCl 20 mg 04/22/19 00:28 04/22/19 00:49 Bentyl IM 04/22/19 00:29 20 mg ONETIME ONE Administration Promethazine HCl 25 mg 04/22/19 00:27 04/22/19 00:48 Phenergan IM 04/22/19 00:28 25 mg ONETIME ONE Administration - Re-Assessments/Exams Free Text/Narrative Re-Assessment/Exam: 04/22/19 02:52 The patient states that her nausea and abdominal cramps completely resolved after she was given IM Phenergan and IM Bentyl. I will discharge her home with a prescription for promethazine gel and oral Bentyl. She states that she will be following up with her PCP as early as tomorrow. Departure - Departure Time of Disposition: 02:53 Disposition: Home, Self-Care 01 Condition: Good Clinical Impression: Nausea and vomiting, Abdominal cramps - Discharge Information *PRESCRIPTION DRUG MONITORING PROGRAM REVIEWED*: Not Applicable *COPY OF PRESCRIPTION DRUG MONITORING REPORT IN PATIENT QIAN: Not Applicable Prescriptions: Dicyclomine [Bentyl] 1 tab PO Q6H PRN #5 tablet PRN Reason: Cramping Promethazine [Phenergan] 0.5 ml TOP ASDIRECTED PRN #1 syringe PRN Reason: Nausea/Vomiting Instructions: Abdominal Pain, Adult, [id number], Nausea and Vomiting, Adult Referrals: Dolores Franklin MD [Primary Care Provider] - Sukhdeep Aguilar DPM [Ordering Only Provider] - Forms: ED Department Discharge Additional Instructions: You were seen in the emergency room for nausea and abdominal cramps. Your symptoms resolved after you were given IM promethazine (Phenergan) and oral Bentyl. Prescriptions for Phenergan cream and oral Bentyl have been sent to the [facility], located at [address] [place] [address]. Follow-up with your PCP, Dr. Lydia Franklin, at the next available appointment, for future prescription refills. If any other problems, please do not hesitate to return to the ER.
== END 2019-04-22 03:30 | disposition home or self-care (01) ==
LOC: JD.ED 23:20
DX: R10.9 Unspecified abdominal pain (principal); R11.2 Nausea with vomiting, unspecified; F32.9 Major depressive disorder, single episode, unspecified; F41.9 Anxiety disorder, unspecified; F17.210 Nicotine dependence, cigarettes, uncomplicated; E66.9 Obesity, unspecified; Z68.32 Body mass index [BMI] 32.0-32.9, adult; Z88.0 Allergy status to penicillin; Z88.1 Allergy status to other antibiotic agents; Z88.8 Allergy status to other drugs, medicaments and biological substances; Z79.899 Other long term (current) drug therapy; Z87.442 Personal history of urinary calculi
CPT/HCPCS: 36415; 80053; 83735; 85025; 96372; 99284; J0500; J2550; 99283

== ENCOUNTER 2019-09-17 15:39 | Emergency (ER) | payer MEDICAID ==
[2019-09-17 15:48] VITALS: BP 176/137; PULSE 112
[2019-09-17] MEDS ORDERED: Ondansetron 4 MG/2 ML SDV IVPUSH ONE (15:53)
[2019-09-17] MEDS ORDERED: Ketorolac 30 MG/ML SDV IVPUSH ONE (15:53)
[2019-09-17] MEDS ORDERED: Sodium Chloride 0.9% 10 ML Syringe FLUSH PRN (15:53)
[2019-09-17] MEDS ORDERED: Sodium Chloride 0.9% 1,000 ML IV SCH (16:00)
[2019-09-17] MEDS ORDERED: FLU Vacc QS2019-20(6MOS+)/PF 60 MCG/0.5 ML SYRINGE IM ONE (16:00)
[2019-09-17] MEDS ORDERED: LORazepam 2 MG/ML SDV IVPUSH ONE (16:02)
--- NOTE | 2019-09-17 16:08 | EDM.PDOC ---
ED HPI GENERAL MEDICAL PROBLEM - General Chief Complaint: General Stated Complaint: UNABLE TO EAT/DRINK,BODY PAIN,HEADACHE Time Seen by Provider: 09/17/19 15:47 Source of Information: Reports: Patient, Old Records, RN Notes Reviewed History Limitations: Reports: No Limitations - History of Present Illness INITIAL COMMENTS - FREE TEXT/NARRATIVE: Patient is a 34-year-old female who presents to the ED for the evaluation of being unable to drink or eat/all over body pain/headaches. Patient notes this has been going on for around 5 days now, she started with a sore throat, generalized headache, runny nose, cough, body aches, fevers and chills. She states that today she has developed some minor dizzy this nausea as well. She states that she has been bedridden for the past 5 days, and has not eaten or drank much for fluids. She states she has peed one time in the last 24 hours. She notes that she just does not have much for an appetite. Patient does state that she has weaned herself off of her chronic pain medications like Percocet as they were not helping her pain any longer, and she just wanted to stop these. She does note generalized body aches due to this fact, nothing that is more bothersome than her normal pains. She does note an increased amount of anxiety as well due to her body pain and stressed about the holidays. She does note she had a fever this morning of 102.8F, she has been taking Tylenol and Aleve for this. She denies any abdominal pain, any vomiting or diarrhea, she states she's not had a good bowel movement in around 3 days as well. Headache Pain Score (Numeric/FACES): 8 - Related Data Allergies Allergy/AdvReac Type Severity Reaction Status Date / Time metronidazole [From Flagyl] Allergy Airway Verified 05/14/19 13:49 Tightness Penicillins Allergy Anaphylactic Verified 05/14/19 13:49 Shock metoclopramide [From Reglan] AdvReac Anxiety Verified 05/14/19 13:49 Home Meds: Home Meds traZODone HCl [Trazodone HCl] 50 - 100 mg PO BEDTIME 08/29/18 [History] Ascorbate Calcium [Vitamin C] 500 mg PO DAILY 12/31/18 [History] Pantoprazole Sodium 40 mg PO BID 12/31/18 [History] Ferrous Sulfate [Iron] 325 mg PO DAILY 04/08/19 [History] Gabapentin [Neurontin] 300 mg PO BEDTIME 04/08/19 [History] Escitalopram Oxalate 20 mg PO DAILY 04/22/19 [History] Meloxicam 15 mg PO DAILY 04/22/19 [History] Past Medical History HEENT History: Reports: Impaired Vision Cardiovascular History: Reports: None Respiratory History: Reports: Asthma Other Respiratory History: Exercise induced asthma Gastrointestinal History: Reports: Bowel Obstruction, GI Bleed, Helicobacter Pylori, Other (See Below) Other Gastrointestinal History: Bowel obstruction following Genitourinary History: Reports: Renal Calculus Other Genitourinary History: reports vaginal bleeding x40 days; left kidney stent placed and removed 2 years later 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 MAKER 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: 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: 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, , Other (See Below) Other MANNEQUIN MAKER History: endometrioma Musculoskeletal History: Reports: Back Pain, Chronic Other Musculoskeletal History: L-4 and L-5 disk disease Neurological History: Reports: CVA Other Neuro History: Stroke in 2007 Psychiatric History: Reports: Anxiety, Depression Endocrine/Metabolic History: Reports: Obesity/BMI 30+ Hematologic History: Reports: Anemia Immunologic History: Reports: None Oncologic (Cancer) History: Reports: Cervix Dermatologic History: Reports: None - Infectious Disease History Infectious Disease History: Reports: Chicken Pox, Influenza - Past Surgical History Head Surgeries/Procedures: Reports: None HEENT Surgical History: Reports: Oral Surgery Musculoskeletal Surgical History: Reports: Other (See Below) Social & Family History - Family History Family Medical History: Noncontributory - Tobacco Use Smoking Status *Q: Current Every Day Smoker Years of Tobacco use: 10 Packs/Tins Daily: 0.5 - Caffeine Use Caffeine Use: Reports: Coffee Other Caffeine Use: a cup of coffee or soda "once in a great while." - Living Situation & Occupation Living situation: Reports: (), with Family (3 kids) Occupation: Employed ED ROS GENERAL - Review of Systems Review Of Systems: See Below Constitutional: Reports: Fever, Malaise (generalized), Decreased Appetite. Denies: Chills HEENT: Reports: Rhinitis, Throat Pain. Denies: Throat Swelling Respiratory: Reports: Cough. Denies: Shortness of Breath Cardiovascular: Reports: Chest Pain (chest discomfort from coughing/anxiety), Lightheadedness Endocrine: Reports: No Symptoms GI/Abdominal: Reports: Decreased Appetite, Nausea. Denies: Abdominal Pain, Constipation, Diarrhea, Vomiting Musculoskeletal: Reports: Other (generalized myalgias and body pain) Skin: Reports: No Symptoms Neurological: Denies: Syncope Psychiatric: Reports: Anxiety Hematologic/Lymphatic: Reports: No Symptoms Immunologic: Reports: No Symptoms ED EXAM, GENERAL - Physical Exam Exam: See Below Exam Limited By: No Limitations General Appearance: Alert, WD/WN, Anxious (pt is crying and very tearful at exam , being somewhat overdramatic) Eye Exam: Bilateral Eye: EOMI, Normal Inspection, PERRL Ears: Normal External Exam, Normal Canal, Hearing Grossly Normal, Normal TMs Nose: Normal Inspection Throat/Mouth: Normal Inspection, Normal Lips, Normal Teeth, Normal Gums, Normal Oropharynx, Normal Voice, No Airway Compromise Head: Atraumatic, Normocephalic Neck: Normal Inspection Respiratory/Chest: No Respiratory Distress, Lungs Clear, Normal Breath Sounds, No Accessory Muscle Use, Chest Non-Tender Cardiovascular: Normal Peripheral Pulses, Regular Rate, Rhythm (slight tachycardia noted), No Edema, No Murmur Peripheral Pulses: 3+: Radial (L), Radial (R) GI/Abdominal: Normal Bowel Sounds, Soft, Non-Tender, No Distention, No Mass Extremities: Normal Inspection, Normal Capillary Refill Neurological: Alert, Oriented, Normal Cognition, Normal Gait, No Motor/Sensory Deficits Psychiatric: Anxious, Tearful Skin Exam: Warm, Dry, Intact, Normal Color, No Rash Course - Vital Signs Last Recorded V/S: Last Vital Signs Temp 97.4 F 09/17/19 15:47 Pulse 112 H 09/17/19 15:47 Resp 24 H 09/17/19 15:47 BP 176/137 H 09/17/19 15:47 Pulse Ox 100 09/17/19 15:47 - Orders/Labs/Meds Orders: Active Orders 24 hr Category Date Time Status Influenza Vaccine Charge [RC] .DISCHARGE Care 09/17/19 15:54 Active Peripheral IV Care [RC] . DIRECTED Care 09/17/19 15:53 Ordered Chest 1V Frontal [CR] Stat Exams 09/17/19 17:11 Ordered Sodium Chloride 0.9% [Normal Saline] 1,000 ml Med 09/17/19 16:00 Ordered IV ASDIRECTED Sodium Chloride 0.9% [Saline Flush] Med 09/17/19 15:53 Ordered 10 ml FLUSH ASDIRECTED PRN Peripheral IV Insertion Adult [OM.PC] Routine Oth 09/17/19 15:53 Ordered Medication Orders Sodium Chloride (Normal Saline) 1,000 mls @ 999 mls/hr IV ASDIRECTED YAMIL Last Admin: 09/17/19 16:33 Dose: 999 mls/hr Sodium Chloride (Saline Flush) 10 ml FLUSH ASDIRECTED PRN PRN Reason: Keep Vein Open Last Admin: 09/17/19 16:36 Dose: 10 ml Labs: Laboratory Tests 09/17/19 09/17/19 Range/Units 16:30 16:30 WBC 10.15 H (3.98-10.04) K/mm3 RBC 4.98 (3.98-5.22) M/mm3 Hgb 14.8 D (11.2-15.7) gm/dl Hct 44.6 (34.1-44.9) % MCV 89.6 (79.4-94.8) fl MCH 29.7 (25.6-32.2) pg MCHC 33.2 (32.2-35.5) g/dl RDW Std Deviation 44.0 (36.4-46.3) fL Plt Count 416 H (182-369) K/mm3 MPV 9.1 L (9.4-12.3) fl Neutrophils % (Manual) 81 H (40-60) % Band Neutrophils % 0 (0-10) % Lymphocytes % (Manual) 13 L (20-40) % Atypical Lymphs % 0 % Monocytes % (Manual) 4 (2-10) % Eosinophils % (Manual) 1 (0.7-5.8) % Basophils % (Manual) 1 (0.1-1.2) Platelet Estimate Adequate RBC Morph Comment Normal Sodium 143 (136-145) mEq/L Potassium 4.1 (3.5-5.1) mEq/L Chloride 108 H (98-107) mEq/L Carbon Dioxide 23 (21-32) mEq/L Anion Gap 16.1 H (5-15) BUN 12 (7-18) mg/dL Creatinine 0.9 (0.55-1.02) mg/dL Est Cr Clr Drug Dosing 83.23 mL/min Estimated GFR (MDRD) > 60 (>60) mL/min BUN/Creatinine Ratio 13.3 L (14-18) Glucose 76 (74-106) mg/dL Calcium 9.6 (8.5-10.1) mg/dL Total Bilirubin 0.3 (0.2-1.0) mg/dL AST 23 (15-37) U/L ALT 14 (14-59) U/L Alkaline Phosphatase 68 (46-116) U/L Total Protein 8.0 (6.4-8.2) g/dl Albumin 3.7 (3.4-5.0) g/dl Globulin 4.3 gm/dL Albumin/Globulin Ratio 0.9 L (1-2) Meds: Medications Generic Name Dose Route Start Last Admin Trade Name Freq PRN Reason Stop Dose Admin Sodium Chloride 1,000 mls @ 999 mls/hr 09/17/19 16:00 09/17/19 16:33 Normal Saline IV 999 mls/hr ASDIRECTED YAMIL Administration Sodium Chloride 10 ml 09/17/19 15:53 09/17/19 16:36 Saline Flush FLUSH 10 ml ASDIRECTED PRN Administration Keep Vein Open Discontinued Medications Generic Name Dose Route Start Last Admin Trade Name Freq PRN Reason Stop Dose Admin Hydromorphone HCl 0.5 mg 09/17/19 17:09 09/17/19 17:21 Dilaudid IVPUSH 09/17/19 17:10 0.5 mg ONETIME ONE Administration Hydromorphone HCl 0.5 mg 09/17/19 17:41 Dilaudid IVPUSH 09/17/19 17:42 ONETIME ONE Influenza Virus Vaccine 60 mcg 09/17/19 16:00 09/17/19 16:38 Fluzone Quad [id number] Syringe IM 09/17/19 16:01 60 mcg .ONCE ONE Administration Ketorolac Tromethamine 30 mg 09/17/19 15:53 09/17/19 16:35 Toradol IVPUSH 09/17/19 15:54 30 mg ONETIME ONE Administration Lorazepam 1 mg 09/17/19 16:02 09/17/19 16:37 Ativan IVPUSH 09/17/19 16:03 1 mg ONETIME ONE Administration Ondansetron HCl 4 mg 09/17/19 15:53 09/17/19 16:34 Zofran IVPUSH 09/17/19 15:54 4 mg ONETIME ONE Administration - Re-Assessments/Exams Free Text/Narrative Re-Assessment/Exam: 09/17/19 16:08 Patient presents to the ED for the evaluation of a few different complaints. I have checked a flu swab, we'll order CBC and CMP for further evaluation, some IV fluids with IV Toradol 30 mg, 1 mg IV Ativan, and 4 mg IV Zofran for initial management. Suspect the patient's illness is viral in nature, and due to her not feeling well, and not eating or drinking much past few days, this has exacerbated her symptoms, she is quite anxious at time of initial presentation, and very tearful. Once she gets them these medications I will reassess her to see if there are any other focal abnormalities she may elicit. 09/17/19 17:42 Patient was reassessed at bedside, after the IV medications, and an extra 0.5 mg of Dilaudid was given for her headache. She states that her headache was at a 9, and is now at an 8 with the 0.5 mg, I will repeat a 0.5 mg Dilaudid before discharge. Patient's labs are back, and demonstrated a mildly increased white count at around 10,000 with an 81% neutrophil count, which would suggest a left shift. Labs are reviewed with Dr. Kan, along with the chest x-ray, and he suggest that she might have an early pneumonia and recommends treatment with antibiotics. Official radiology read is pending. I will place her on an appropriate antibiotic course and discharge her home at this time. Patient states she was feeling better all except for the headache. Departure - Departure Time of Disposition: 17:44 Disposition: Home, Self-Care 01 Condition: Fair Clinical Impression: Pneumonia Qualifiers: Pneumonia type: due to unspecified organism Laterality: unspecified laterality Lung location: unspecified part of lung Qualified Code(s): J18.9 - Pneumonia, unspecified organism - Discharge Information *PRESCRIPTION DRUG MONITORING PROGRAM REVIEWED*: Yes *COPY OF PRESCRIPTION DRUG MONITORING REPORT IN PATIENT QIAN: No Instructions: Community-Acquired Pneumonia, Adult, [id number] Referrals: Dolores Franklin MD [Primary Care Provider] - Forms: ED Department Discharge Additional Instructions: You have been evaluated in the ED today for your cold like symptoms, cough, sore throat. Labs were done, and demonstrate a mildly increased white count with a left shift which would suggest a bacterial infection in nature. Chest x-ray shows mild increased density on the right lung, which could be an early pneumonia. You were given a prescription for doxycycline 100mgs twice a day for 7 days. Please increase your fluid intake. Get plenty of rest as well. You should feel better in a few days. Recommend that you take some [id number] nasal decongestants, cough/cold remedies to combat this. Medicines like NyQuil, DayQuil, phenylephrine and other sinus decongestants are adequate. You may take 600 mg ibuprofen or 500 mg Tylenol every 6 hours as needed for further pain relief. Please note that most [id number] cold medications have Tylenol added in with them, do not take over 4000 mg in a 24-hour time span. Do not take over 3200 mg ibuprofen in a 24-hour time span. If your symptoms are not better in one week's time recommend that you follow up in a clinic or your primary care provider. Our [facility] clinic number is , the [place] clinic is [phone]. Any family practice provider would be able to provide you with the services. Please return to the ED if your symptoms change or worsen. - My Orders Last 24 Hours: My Active Orders 09/17/19 15:53 Peripheral IV Care [RC] . DIRECTED Sodium Chloride 0.9% [Saline Flush] 10 ml FLUSH ASDIRECTED PRN Peripheral IV Insertion Adult [OM.PC] Routine 09/17/19 15:54 Influenza Vaccine Charge [RC] .DISCHARGE 09/17/19 16:00 Sodium Chloride 0.9% [Normal Saline] 1,000 ml IV ASDIRECTED 09/17/19 17:11 Chest 1V Frontal [CR] Stat - Assessment/Plan Last 24 Hours: My Active Orders 09/17/19 15:53 Peripheral IV Care [RC] . DIRECTED Sodium Chloride 0.9% [Saline Flush] 10 ml FLUSH ASDIRECTED PRN Peripheral IV Insertion Adult [OM.PC] Routine 09/17/19 15:54 Influenza Vaccine Charge [RC] .DISCHARGE 09/17/19 16:00 Sodium Chloride 0.9% [Normal Saline] 1,000 ml IV ASDIRECTED 09/17/19 17:11 Chest 1V Frontal [CR] Stat
[2019-09-17] MEDS ORDERED: HYDROmorphone 0.5 MG/0.5 ML Syringe IVPUSH ONE ×2 (17:09→17:41)
--- NOTE | 2019-09-19 08:03 | CR ---
Chest: Portable view of the chest was obtained. Comparison: Prior chest x-ray of 12/17/18. Heart size and mediastinum are within normal limits. Lungs show no acute parenchymal change. Bony structures are grossly intact. Impression: 1. Nothing acute is appreciated on portable chest x-ray. Diagnostic code #1 This report was dictated in [place] Standard Time
== END 2019-09-17 18:07 | disposition home or self-care (01) ==
LOC: JD.ED 15:39
DX: J18.9 Pneumonia, unspecified organism (principal); J45.909 Unspecified asthma, uncomplicated; E66.9 Obesity, unspecified; F17.210 Nicotine dependence, cigarettes, uncomplicated; Z88.1 Allergy status to other antibiotic agents; Z88.0 Allergy status to penicillin; Z88.8 Allergy status to other drugs, medicaments and biological substances
CPT/HCPCS: 36415; 71045; 80053; 85007; 85027; 87804; 90471; 90686; 96361; 96374; 96375; 96376; 99284; J1170; J1885; J2060; J2405; J7040